=== PATIENT | female | born 1960 | race Caucasian/White ===

== ENCOUNTER → 2017-11-24 07:08 | Outpatient (CLI) | payer MEDICAID, SELFPAY ==
--- NOTE | 2017-11-24 08:30 | BRBX_PTH ---
PATIENT: JOSE GUADALUPE FISHER LOC: [facility] U#:[id number] AGE/SX: 64/F ROOM: RE11/24/[address]: Dr. Eli Burrows MD : 1960 BED: DIS: SPEC #: [id number] RECD: 11/24/17 09:12 STATUS: MARTY ALICE #: [id number] BRAXTON: 11/24/17 08:[address]: Eli Burrows DEPT: SURGICAL PATHOLOGY RECD BY: Omero Domingo ENTERED: 11/24/17 12:50 SP TYPE: BREAST BX OTHR DR: Dr. Sowmya Asif MD Tissues: Left breast, NOS Procedures: Surgery Specimen Level IV HEADER OPERATION: Left stereotactic breast biopsy PRE-OP DIAGNOSIS: Left breast microcalcifications 4 o?clock middle depth TISSUE SUBMITTED: Left breast core tissue ISCHEMIC TIME: 1 minute FIXATION TIME: 11 hours MICROSCOPIC DIAGNOSIS Left breast, stereotactic needle core biopsy: Fibrosis, benign histiocytic proliferation and clustered Banal microcalcifications. No evidence of malignancy. AM:eladio 11/25/17 MICROSCOPIC DESCRIPTION Slides are reviewed. GROSS DESCRIPTION Received is one container labeled with the patient's name and not further designated. The specimen consists of multiple elongated fragments of jett-yellow fibroadipose tissue that in aggregate measure 3 x 2.5 x 0.3 cm. The entire specimen is submitted in one cassette. / SJ:eladio 11/24/17 TC:5 CPT: 99009
--- NOTE | 2017-11-24 13:27 | PCM.OPRPT ---
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 Appropriate time out protocol was followed. She was then placed in the prone position on the stereotactic biopsy table. The patients left breast was then placed in the opening at the head of the table. A pencil maker compression mammogram was then obtained in the lateral view. The suspicious radiological lesion was then identified. Stereo pictures of the lesion were then taken for XYZ coordinates. The Mammotome biopsy stylus was then positioned where it would be entering into the patients breast. The skin at this site was then cleansed with a surgical skin preparation. The skin and subcutaneous tissues at this site were then infiltrated with 1% xylocaine. A small skin incision was made with an 11 blade scalpel. The biopsy stylus was then positioned into the patients breast at the proper coordinates of depth. Using the Mammotome vacuum-assist device, several core samples of breast tissue were obtained. A specimen mammogram was the obtained and revealed that the calcifications were within the specimen. A hemostatic marker clip was then placed into the biopsy cavity and a pencil maker film revealed that it was properly deployed. The patient was then placed in the supine position and pressure was applied to the breast until no active bleeding was noted. Steristrips were applied to reapproximate the skin. A unilateral mammogram in the CC and MLO view were then taken which revealed that the marker clip was in the same area as the previous suspicious lesion. The patient tolerated the procedure well and was discharged from the breast biopsy suite in good condition. - Complications none noted
--- NOTE | 2017-11-24 13:30 | OP.PCM_ITS ---
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 Appropriate time out protocol was followed. She was then placed in the prone position on the stereotactic biopsy table. The patient?s left breast was then placed in the opening at the head of the table. A titrator compression mammogram was then obtained in the lateral view. The suspicious radiological lesion was then identified. Stereo pictures of the lesion were then taken for XYZ coordinates. The Mammotome biopsy stylus was then positioned where it would be entering into the patient?s breast. The skin at this site was then cleansed with a surgical skin preparation. The skin and subcutaneous tissues at this site were then infiltrated with 1% xylocaine. A small skin incision was made with an 11 blade scalpel. The biopsy stylus was then positioned into the patient?s breast at the proper coordinates of depth. Using the Mammotome vacuum-assist device, several core samples of breast tissue were obtained. A specimen mammogram was the obtained and revealed that the calcifications were within the specimen. A hemostatic marker clip was then placed into the biopsy cavity and a titrator film revealed that it was properly deployed. The patient was then placed in the supine position and pressure was applied to the breast until no active bleeding was noted. Steristrips were applied to reapproximate the skin. A unilateral mammogram in the CC and MLO view were then taken which revealed that the marker clip was in the same area as the previous suspicious lesion. The patient tolerated the procedure well and was discharged from the breast biopsy suite in good condition. - Complications none noted
== END ==
PROVIDERS: Family Provider Internal Medicine; PCP Internal Medicine; Visit Provider Surgery
DX: D24.2 Benign neoplasm of left breast (principal); N60.32 Fibrosclerosis of left breast; F41.9 Anxiety disorder, unspecified; M79.7 Fibromyalgia; E11.9 Type 2 diabetes mellitus without complications; G51.0 Bell's palsy; E03.9 Hypothyroidism, unspecified; Z79.84 Long term (current) use of oral hypoglycemic drugs; Z79.899 Other long term (current) drug therapy
CPT/HCPCS: 19081; 88305; J7050

== ENCOUNTER → 2020-11-26 16:02 | Outpatient (CLI) | payer MEDICARE, SELFPAY ==
[2020-11-26 17:23] LABS: Absolute Lymphocyte Count 3.06 X10^3/uL (0.83-4.51); Absolute Neutrophil Count 4.6 X10^3/uL (2.0-7.7); Basophil# 0.04 X10^3/uL; Basophil% 0.5 % (0-1); Eosinophil# 0.01 X10^3/uL; Eosinophils% 0.1 % (0-5); Hematocrit 42.2 % (37-47); Lymphocyte # 3.06 X10^3/ul (0.83-4.51); Lymphocyte % 37.6 % (19-41); Mean Corp Hgb Conc 30.8 g/dL (32-36); Mean Corpuscular Hgb 27.6 pg (27.0-32.0); Mean Corpuscular Volume 89.6 fL (81-99); Mean Platelet Vol. 9.7 fl (6.2-12.0); Monocyte# 0.43 X10^3/uL; Monocyte% 5.3 % (0-10); NRBC Flagged by Analyzer 0 % (0-5); Neutrophil # 4.57 X10^3/uL (2.7-7.7); Neutrophil % 56.1 % (47-70); Platelet Count 235 K/mm3 (150-450); RBC Distribution Width CV 12.6 % (11.6-14.6); RBC Distribution Width SD 41.4 fl (35.1-43.9); Red Blood Count 4.71 M/mm3 (4.2-5.4); White Blood Count 8.1 K/mm3 (4.4-11.0)
[2020-11-26 18:36] LABS: ALB/GLOB Ratio 0.8 RATIO (0.9-2.4); AST(SGOT) 9 U/L (15-37); Alanine Aminotransfer ALT/SGPT 16 U/L (13-56); Albumin, Serum 3.4 g/dL (3.2-5.0); Alkaline Phosphatase 110 U/L (45-117); Anion Gap 4 (5-15); BUN 11 mg/dL (7-18); BUN/Creat Ratio 12.8 RATIO (10-20); Calcium,Total 9.2 mg/dL (8.5-10.1); Chloride 104 mmol/L (98-107); Cholesterol 244 mg/dL (200); Creatinine, Serum 0.86 mg/dL (0.55-1.02); EST Glomerular Filtration Rate 71 mL/min (>60); Est Glom Filt Rate - Afr Amer 86 mL/min (>60); Globulin 4.1 g/dL (2.2-4.2); Glucose 121 mg/dL (74-106); High Density Lipoprotein 44 mg/dL; Potassium 3.3 mmol/L (3.5-5.1); Protein, Total 7.5 g/dL (6.4-8.2); Sodium Level 139 mmol/L (136-145); Thyroid Stim Hormone (TSH) 0.76 uIU/mL (0.358-3.74); Triglycerides 303 mg/dL; Very Low Density Lipoprotein 61 mg/dL (5-40)
[2020-11-27 10:32] LABS: Hepatitis C Antibody Non-Reactive (Nonreactive)
[2020-11-29 12:38] LABS: Vitamin D,25 Hydroxy 52.5 ng/mL
== END ==
PROVIDERS: PCP Family Medicine Geriatric Medicine; Visit Provider Family Medicine Geriatric Medicine
DX: E55.9 Vitamin D deficiency, unspecified (principal); E78.5 Hyperlipidemia, unspecified; R53.83 Other fatigue; Z13.89 Encounter for screening for other disorder
CPT/HCPCS: 36415; 80053; 80061; 82306; 84443; 85025; 86803

== ENCOUNTER → 2020-12-04 12:20 | Outpatient (CLI) | payer MEDICARE, SELFPAY ==
[2017-02-14 11:10] VITALS: BMI 34.9
[2020-12-04 13:12] LABS: Anion Gap 4 (5-15); BUN 11 mg/dL (7-18); BUN/Creat Ratio 11.1 RATIO (10-20); Calcium,Total 9.3 mg/dL (8.5-10.1); Chloride 106 mmol/L (98-107); Creatinine, Serum 0.99 mg/dL (0.55-1.02); EST Glomerular Filtration Rate 61 mL/min (>60); Est Glom Filt Rate - Afr Amer 73 mL/min (>60); Glucose 163 mg/dL (74-106); Potassium 3.8 mmol/L (3.5-5.1); Sodium Level 140 mmol/L (136-145)
== END ==
PROVIDERS: PCP Family Medicine Geriatric Medicine; Referring Provider Family Medicine Geriatric Medicine; Visit Provider Family Medicine Geriatric Medicine
DX: E87.6 Hypokalemia (principal)
CPT/HCPCS: 36415; 80048

== ENCOUNTER → 2020-12-25 11:54 | Outpatient (CLI) | payer MEDICARE, SELFPAY ==
[2017-02-14 11:10] VITALS: BMI 34.9
== END ==
PROVIDERS: PCP Family Medicine Geriatric Medicine; Referring Provider Family Medicine Geriatric Medicine; Visit Provider Family Medicine Geriatric Medicine
DX: N39.0 Urinary tract infection, site not specified (principal)
CPT/HCPCS: 36415; 87077; 87086; 87088; 87186

== ENCOUNTER 2021-01-07 17:36 | Emergency (ER) | payer MEDICARE, SELFPAY ==
[2021-01-07 17:36] VITALS: BP 119/63; PULSE 83; RESP 16; TEMP 36.6; O2SAT 99; BMI 35.2
--- NOTE | 2021-01-07 18:00 | EKG12_ITS ---
Test Reason : CP Blood Pressure : / mmHG Vent. Rate : 074 BPM Atrial Rate : 074 BPM P-R Int : 150 ms QRS Dur : 088 ms QT Int : 416 ms P-R-T Axes : 050 042 016 degrees QTc Int : 461 ms Normal sinus rhythm Nonspecific T wave abnormality Abnormal ECG Confirmed by KEV MOULTON, PARKER ([id number]), sports editor FREDY BETANCOURT ([id number]) on 01/09/2021 1:56:33 PM Referred By: MELVIN Confirmed By:PARKER ANGULO MD
--- NOTE | 2021-01-07 18:00 | CT_ITS ---
STUDY: CT BRAIN WITHOUT CONTRAST REASON FOR EXAM: Female, 60 years old. Seizure RADIATION DOSAGE (If Supplied By Facility): CTDIvol = ( 44.99 ) mGy, DLP = ( 812.98 ) mGycm TECHNIQUE: Transaxial CT imaging of the brain was performed without administration of intravenous contrast material. Individualized dose optimization techniques were used for this CT. COMPARISON: 14 February 2017 FINDINGS: Brain parenchyma is without focal lesions, mass effect, acute intracranial hemorrhage, extra parenchymal fluid collections, hydrocephalus or herniation. The skull is intact. CT/Brain/Head without Contrast IMPRESSION: 1. Normal CT brain. Electronically Signed: Morro Alexandre MD at 18:58 EDT Tel , Service support ,
[2021-01-07] MEDS: LORazepam 2 MG/ML Syringe 0.5 MG IV (18:09)
[2021-01-07 18:13] LABS: Absolute Lymphocyte Count 2.88 X10^3/uL (0.83-4.51); Absolute Neutrophil Count 8.6 X10^3/uL (2.0-7.7); Basophil# 0.04 X10^3/uL; Basophil% 0.3 % (0-1); Eosinophil# 0.01 X10^3/uL; Eosinophils% 0.1 % (0-5); Hematocrit 42.7 % (37-47); Hemoglobin 13.2 g/dL (12.0-15.0); Lymphocyte # 2.88 X10^3/ul (0.83-4.51); Lymphocyte % 23.7 % (19-41); Mean Corp Hgb Conc 30.9 g/dL (32-36); Mean Corpuscular Hgb 27.8 pg (27.0-32.0); Mean Corpuscular Volume 89.9 fL (81-99); Mean Platelet Vol. 9.4 fl (6.2-12.0); Monocyte# 0.64 X10^3/uL; Monocyte% 5.3 % (0-10); NRBC Flagged by Analyzer 0 % (0-5); Neutrophil # 8.55 X10^3/uL (2.7-7.7); Neutrophil % 70.3 % (47-70); Platelet Count 241 K/mm3 (150-450); RBC Distribution Width SD 42.8 fl (35.1-43.9); Red Blood Count 4.75 M/mm3 (4.2-5.4); White Blood Count 12.2 K/mm3 (4.4-11.0)
[2021-01-07 18:22] LABS: Anion Gap 5 (5-15); BUN 11 mg/dL (7-18); BUN/Creat Ratio 11.7 RATIO (10-20); Calcium,Total 8.8 mg/dL (8.5-10.1); Chloride 108 mmol/L (98-107); Creatinine, Serum 0.94 mg/dL (0.55-1.02); EST Glomerular Filtration Rate 64 mL/min (>60); Est Glom Filt Rate - Afr Amer 78 mL/min (>60); Estimated Creatinine Clearance 61.89 ml/min; Glucose 153 mg/dL (74-106); Potassium 3.6 mmol/L (3.5-5.1); Sodium Level 140 mmol/L (136-145)
--- NOTE | 2021-01-07 19:23 | EX.ED.DYSGE1 ---
HPI History of Present Illness Chief Complaint: Seizure Informant: patient and spouse/S.O. Onset/Context/Timing Onset: Today Narrative Narrative: Patient presents after reported seizure at home. Patient reported he was sitting on the commode straining to have a bowel movement. She states she felt very hot and sweaty. She asked her to get a cool wash rag to put on her neck. He states next thing he knew she was slumped over on the commode. It took her several minutes to arouse. No tonic-clonic activity was noted. Patient reportedly has history of seizures. The first episode she had was similar where she became unresponsive on the commode and had left arm shaking. She is had a couple episodes where she will have motor changes in the left arm with seizure activity. She is currently on Topamax. does state that she was admitted to [facility] for almost a week last year for continuous EEG monitoring. No seizure activity could be elicited at that time. Patient states she is in the process of switching neurologists and has an appointment to see someone in [place] on March 13. At this time patient states she just feels tired and fatigued. Past medical history: Seizures Chronic left-sided pain Diabetes Hypothyroidism High cholesterol PFSH PFSH Home Medications cholecalciferol (vitamin D3) [Vitamin D] 1,000 unit PO BID 03/13/16 [History Last Taken Unknown] cyclobenzaprine 5 mg PO QHS PRN 03/13/16 [History Last Taken Unknown] levothyroxine 125 mcg PO DAILY 03/13/16 [History Last Taken Unknown] metformin 1,000 mg PO DAILY 03/13/16 [History Last Taken Unknown] kg-ij-IL-vit J-cclsz-hrzs-zeax [Ocuvite Eye + Multi Tablet] 1 ea PO DAILY 03/13/16 [History Last Taken Unknown] dihej-2m-oss-epa-fish oil 1 ea PO DAILY 03/13/16 [History Last Taken Unknown] duloxetine 1 capsule PO DAILY 10/24/16 [History Last Taken Unknown] glimepiride 1 mg PO DAILY 10/24/16 [History Last Taken Unknown] pravastatin 10 mg PO QHS 10/24/16 [History Last Taken Unknown] acetaminophen 500 mg PO Q6H PRN PRN 02/14/17 [History Last Taken Unknown] hydrocodone-acetaminophen 1 - 2 tab PO Q4H PRN PRN #12 tablet 02/14/17 [Rx Last Taken Unknown] melatonin 10 mg PO QHS PRN 02/14/17 [History Last Taken Unknown] potassium 99 mg PO BID 02/14/17 [History Last Taken Unknown] topiramate 50 mg PO DAILY 02/14/17 [History Last Taken Unknown] topiramate 100 mg PO QHS 02/14/17 [History Last Taken Unknown] Allergy/AdvReac Type Severity Reaction Status Date / Time iodine Allergy Angioedema Verified 01/07/21 17:40 acetaminophen AdvReac Unknown Verified 10/24/16 13:48 [From Darvocet-N] azathioprine AdvReac Pain in Verified 10/24/16 14:00 joints goldenseal [zuñiga seal] AdvReac Unknown Verified 10/24/16 13:48 meperidine [From Demerol] AdvReac Nausea Verified 10/24/16 13:48 propoxyphene AdvReac Unknown Verified 10/24/16 13:48 [From Darvocet-N] tea tree AdvReac Unknown Verified 10/24/16 13:48 Social History Smoking Status: Never smoker ROS ROS ED Constitutional Constitutional ED: Denies chills or fever(s) Eyes Eyes: Denies change in vision ENT ENT ED: Denies sore throat Cardiovascular Cardiovascular: Denies chest pain Respiratory/Chest Respiratory/Chest: Denies cough or dyspnea Gastrointestinal Gastrointestinal: Denies abdominal pain, diarrhea, nausea or vomiting Genitourinary Genitourinary ED: Denies dysuria Musculoskeletal Musculoskeletal: Denies back pain Integumentary Denies rash Neurologic Neurologic: Denies headache(s) or weakness Psychiatric Psychiatric: Denies anxiety or depression Endocrine Endocrinology: Denies polydipsia or polyuria Allergic/Immunologic Allergic/Immunologic ED: Denies urticaria EXAM Physical Exam Const Vital Signs: 01/07/21 17:36 01/07/21 19:41 Temperature 97.8 F Temperature Source Oral Pulse Rate 83 78 Respiratory Rate 16 13 Blood Pressure 119/63 119/68 Blood Pressure Mean 81 Pulse Ox 99 97 Oxygen Delivery Method Room Air Positive well nourished and well developed General Appearance ED: well developed HEENT Reports normocephalic and head/scalp atraumatic HEENT Narrative: No tongue bite injury. Eyes PERRL and EOMs intact bilaterally Neck supple Chest Wall inspection of chest normal and palpation of chest normal Resp normal respiratory effort and clear to auscultation bilaterally Cardio regular rate and regular rhythm GI normal to inspection, nondistended, normoactive bowel sounds Palpation: soft Extremity normal to inspection Neuro oriented x3 and no sensory deficits noted Sensorium / Orientation: alert Motor Exam: strength 5/5 throughout Psych mental status grossly normal Skin no rashes or lesions noted MDM MDM MDM Narrative Medical decision making narrative: EKG, labs, head CT obtained. Patient was given 0.5 mg of IV Ativan. Lab Data Attestation: I reviewed the patient's lab results. Labs: Laboratory Results - last 24 hr 01/07/21 01/07/21 17:45 17:45 WBC 12.2 H RBC 4.75 Hgb 13.2 Hct 42.7 MCV 89.9 MCH 27.8 MCHC 30.9 L RDW Std Deviation 42.8 RDW Coeff of Andrew 13.0 Plt Count 241 MPV 9.4 Immature Gran % (Auto) 0.300 Neut % (Auto) 70.3 H Lymph % (Auto) 23.7 Mccreary % (Auto) 5.3 Eos % (Auto) 0.1 Baso % (Auto) 0.3 Absolute Neuts (auto) 8.6 H Absolute Lymphs (auto) 2.88 Nucleated RBC % 0 Sodium 140 Potassium 3.6 Chloride 108 H Carbon Dioxide 27.0 Anion Gap 5 BUN 11 Creatinine 0.94 Estim Creat Clear Calc 61.89 Est GFR (MDRD) Af Amer 78 Est GFR (MDRD) Non-Af 64 BUN/Creatinine Ratio 11.7 Glucose 153 H Calcium 8.8 Radiography Diagnostic Testing: Radiology Impression Brain CT 01/07/21 18:00 IMPRESSION: 1. Normal CT brain. Electronically Signed: Morro Alexandre MD at 18:58 EDT Tel , Service support , EKG Initial EKG: Attestation: I personally reviewed and interpreted this EKG as follows: Interpretation: Sinus Rhythm (Sinus at 74. Nonspecific T wave flattening.) Treatment and Re-Evaluation Comments:: On repeat exam patient is resting comfortably. Test results discussed with patient and at bedside. I did discuss with them the possibility that this was a vasovagal syncopal event as opposed to seizure. Unfortunately there is no testing available that will allow me to differentiate the 2. Regardless, our treatment will not change at this point. She will continue her Topamax and follow-up with neurology. Discharge Plan Triage Chief Complaint: Seizure ED Provider: Brianne Lewis Dx/Rx/DC Orders Clinical Impression: Syncope, vasovagal, Seizure Instructions: ED Seizure, Recurrent (Adult) Prescriptions: No Action cyclobenzaprine 10 MG tablet 5 mg PO QHS PRN (Reason: Pain) RF: 0 levothyroxine 125 MCG tablet 125 mcg PO DAILY RF: 0 metformin 1,000 MG [id number] 1,000 mg PO DAILY RF: 0 cholecalciferol (vitamin D3) [Vitamin D3] 1,000 UNIT tablet 1,000 unit PO BID RF: 0 bujam-4l-vau-epa-fish oil 1 EACH capsule 1 ea PO DAILY RF: 0 cd-fq-VI-vit B-pxpzc-kdpx-zeax [Ocuvite Eye Plus Multi] 1 EACH tablet 1 ea PO DAILY RF: 0 glimepiride 1 MG tablet 1 mg PO DAILY RF: 0 pravastatin 10 MG tablet 10 mg PO QHS RF: 0 duloxetine 60 MG Capsule.Dr 1 capsule PO DAILY RF: 0 acetaminophen 500 MG tablet 500 mg PO Q6H PRN PRN (Reason: Pain) RF: 0 potassium 99 MG tablet 99 mg PO BID RF: 0 topiramate 100 MG tablet 100 mg PO QHS RF: 0 topiramate 50 MG tablet 50 mg PO DAILY RF: 0 melatonin 10 MG tablet 10 mg PO QHS PRN (Reason: Insomnia) RF: 0 hydrocodone-acetaminophen 1 TABLET tablet 1 - 2 tab PO Q4H PRN PRN (Reason: Pain) Qty: 12 RF: 0 Primary Care Provider: Juwan Hernandez Chi Referrals: Juwan Hernandez Chi, MD [Primary Care Provider] - 1-2 Weeks Activity Restrictions/Additional Instructions: Follow-up with your neurologist as scheduled or before if available. Disposition Disposition: Home, Self Care Discharge Date/Time: 01/07/21 19:53
[2021-01-07 19:41] VITALS: BP 119/68; PULSE 78; RESP 13; O2SAT 97
== END 2021-01-07 19:53 | disposition home or self-care (01) ==
PROVIDERS: Emergency Provider Emergency Medicine; PCP Family Medicine Geriatric Medicine
DX: R55 Syncope and collapse (principal); R56.9 Unspecified convulsions
CPT/HCPCS: 70450; 80048; 85025; 93005; 96374; 99285; A4216

== ENCOUNTER → 2021-01-09 17:34 | Outpatient (CLI) | payer MEDICARE, SELFPAY ==
[2021-01-09 10:22] VITALS: BMI 35.2
== END ==
PROVIDERS: PCP Family Medicine Geriatric Medicine; Visit Provider Family Medicine Geriatric Medicine
DX: N39.0 Urinary tract infection, site not specified (principal)
CPT/HCPCS: 87086; 87088

== ENCOUNTER → 2021-01-14 10:29 | Outpatient (CLI) | payer MEDICARE, SELFPAY ==
[2021-01-09 10:22] VITALS: BMI 35.2
--- NOTE | 2021-01-14 10:31 | CT_ITS ---
STUDY: CT ABDOMEN AND PELVIS WITHOUT CONTRAST REASON FOR EXAM: Female, 60 years old. RIGHT FLANK PAIN. Right pelvic pain. RADIATION DOSAGE (If Supplied By Facility): CTDIvol = ( 19.33 ) mGy, DLP = ( 1053.54 ) mGycm TECHNIQUE: Transaxial images were obtained from the dome of the diaphragm to the symphysis pubis without oral contrast, and without intravenous contrast. Sagittal and coronal images were reconstructed. Individualized dose optimization techniques were used for this CT. COMPARISON: Comparison is made with prior study 02/14/2017. FINDINGS: The visualized lung bases are unremarkable. The visualized portions of the heart are within normal limits. There is mild hepatomegaly with diffuse hepatic enlargement. There are multiple gallstones. Normal spleen. Normal pancreas. Normal bilateral adrenal glands. Normal right kidney. Normal left kidney. Normal visualized stomach. Normal small intestine. Normal colon. There is non-visualization of the appendix. There is diffuse atherosclerotic calcification of the abdominal aorta, without a demonstrated aneurysm. Normal inferior vena cava. There is borderline retroperitoneal lymphadenopathy with enlarged nodes no greater than 10mm in the short axis diameter. Normal urinary bladder. There is absence of the uterus consistent with a prior hysterectomy. Normal abdominal wall. There are diffuse degenerative changes of the visualized lumbar spine. CT/Abdomen/Pelvis without Cont IMPRESSION: Multiple gallstones. Electronically Signed: Jaden Steele MD at 11:38 EDT , Service support ,
== END ==
PROVIDERS: PCP Family Medicine Geriatric Medicine; Referring Provider Family Medicine Geriatric Medicine; Visit Provider Family Medicine Geriatric Medicine
DX: R10.30 Lower abdominal pain, unspecified (principal); N39.0 Urinary tract infection, site not specified
CPT/HCPCS: 74176; 87086

== ENCOUNTER → 2021-01-16 08:16 | Outpatient (CLI) | payer MEDICARE, SELFPAY ==
[2021-01-09 10:22] VITALS: BMI 35.2
--- NOTE | 2021-01-16 08:18 | US_ITS ---
STUDY: ABDOMINAL ULTRASOUND - RIGHT UPPER QUADRANT REASON FOR VISIT: Female, 60 years old GALLSTONES / ABD GALLSTONES SEEN ON CT - PT IS S/P WALDO 1998 PAIN TECHNIQUE: Ultrasound evaluation of the right upper quadrant was performed with real-time and static medrano-scale imaging. TECHNICAL QUALITY: Adequate. COMPARISON: None. FINDINGS: Liver: The liver measures 16.3 cm. There is increased echogenicity consistent with fatty infiltration. The bile ducts are within normal limits. There is hepatic color flow. The direction of portal flow is hepatopetal. There is no demonstrated mass lesion. Gallbladder: The patient is status post cholecystectomy. There is 1.2 cm x 1 cm x 0.9 cm fluid collection or gallbladder remnant in the region of the gallbladder fossa. Common Bile Duct (C.B.D.): The common bile duct measures 6 mm. Pancreas: Normal size of the head, body and tail of the pancreas. There is normal echogenicity of the pancreas. There is no demonstrated pancreatic mass or cyst. Right Kidney: Normal size of the right kidney. The right kidney measures 11.9 cm x 4.8cm x 4.4 cm. Normal renal cortex. The right cortex measures 1.7 cm. There is a 1.5 cm x 1.3 cm x 1.5 cm cyst in the upper pole of the right kidney. There is no right hydronephrosis. US/Abdomen Limited IMPRESSION: Fatty infiltration of the liver. Status post cholecystectomy. Right renal cyst. Electronically Signed: Jaden Steele MD at 14:03 EDT , Service support ,
--- NOTE | 2021-01-16 08:19 | US_ITS ---
STUDY: SUPERFICIAL ULTRASOUND - RIGHT HIP. REASON FOR EXAM: Female, 60 years old. LIPOMA OF RT ANT HIP TECHNIQUE: A superficial ultrasound was performed with real-time and static medrano-scale imaging. COMPARISON: None. FINDINGS: The palpable and mildly corresponds to a 5.4 mm x 4.2 mm well-defined echogenic nodule. This most likely represents a lipoma. US/Ext Non Vasc Limited/Soft Tiss IMPRESSION: The palpable abnormality corresponds to a 5 mm x 4 mm x 4 mm lipoma. Electronically Signed: Jaden Steele MD at 13:30 EDT , Service support ,
== END ==
PROVIDERS: PCP Family Medicine Geriatric Medicine; Referring Provider Family Medicine Geriatric Medicine; Visit Provider Family Medicine Geriatric Medicine
DX: D17.9 Benign lipomatous neoplasm, unspecified (principal)
CPT/HCPCS: 76705; 76882

== ENCOUNTER → 2021-01-29 07:49 | Outpatient (CLI) | payer MEDICARE, SELFPAY ==
[2021-01-09 10:22] VITALS: BMI 35.2
--- NOTE | 2021-01-29 07:51 | US_ITS ---
STUDY: ABDOMINAL ULTRASOUND - ELASTOGRAPHY REASON FOR VISIT: Female, 60 years old. Fatty infiltration of the liver. TECHNIQUE: Liver stiffness measurements were obtained on a [employer] RS 85 ultrasound machine using a CA 1-7 probe following the SRU guidelines. 3 measurements were obtained using a 2-D-SWE method. The IQR/M was 22% suggesting a quality data set. TECHNICAL QUALITY: Adequate. COMPARISON: Comparison is made with prior sonogram dated 01/16/2021. FINDINGS: Liver: Fatty infiltration of the liver. Median liver stiffness measured 7.7 kPa. US/Elastography Parenchyma/Organ IMPRESSION: Liver stiffness measures 7.7 kPa compatible with F2 Metavir score. Electronically Signed: Jaden Steele MD at 9:28 EDT , Service support ,
== END ==
PROVIDERS: PCP Family Medicine Geriatric Medicine; Referring Provider Family Medicine Geriatric Medicine; Visit Provider Family Medicine Geriatric Medicine
DX: K76.0 Fatty (change of) liver, not elsewhere classified (principal)
CPT/HCPCS: 76981

== ENCOUNTER → 2021-02-26 14:40 | Outpatient (CLI) | payer MEDICARE, SELFPAY ==
[2021-02-26 17:25] LABS: Absolute Lymphocyte Count 3.13 X10^3/uL (0.83-4.51); Absolute Neutrophil Count 4.4 X10^3/uL (2.0-7.7); Basophil# 0.04 X10^3/uL; Basophil% 0.5 % (0-1); Eosinophil# 0.01 X10^3/uL; Eosinophils% 0.1 % (0-5); Hematocrit 42.8 % (37-47); Hemoglobin 13.2 g/dL (12.0-15.0); Lymphocyte # 3.13 X10^3/ul (0.83-4.51); Lymphocyte % 38.7 % (19-41); Mean Corp Hgb Conc 30.8 g/dL (32-36); Mean Corpuscular Hgb 27.6 pg (27.0-32.0); Mean Corpuscular Volume 89.5 fL (81-99); Mean Platelet Vol. 10.1 fl (6.2-12.0); Monocyte# 0.48 X10^3/uL; Monocyte% 5.9 % (0-10); NRBC Flagged by Analyzer 0 % (0-5); Neutrophil % 54.4 % (47-70); Platelet Count 233 K/mm3 (150-450); RBC Distribution Width CV 12.8 % (11.6-14.6); RBC Distribution Width SD 42.2 fl (35.1-43.9); Red Blood Count 4.78 M/mm3 (4.2-5.4); White Blood Count 8.1 K/mm3 (4.4-11.0)
[2021-02-26 17:54] LABS: ALB/GLOB Ratio 0.9 RATIO (0.9-2.4); AST(SGOT) 11 U/L (15-37); Alanine Aminotransfer ALT/SGPT 21 U/L (13-56); Albumin, Serum 3.7 g/dL (3.2-5.0); Alkaline Phosphatase 102 U/L (45-117); Anion Gap 4 (5-15); BUN 14 mg/dL (7-18); BUN/Creat Ratio 14.4 RATIO (10-20); Calcium,Total 8.9 mg/dL (8.5-10.1); Chloride 105 mmol/L (98-107); Cholesterol 254 mg/dL (200); Creatinine, Serum 0.97 mg/dL (0.55-1.02); EST Glomerular Filtration Rate 62 mL/min (>60); Est Glom Filt Rate - Afr Amer 75 mL/min (>60); Globulin 3.9 g/dL (2.2-4.2); Glucose 140 mg/dL (74-106); High Density Lipoprotein 43 mg/dL; Potassium 4.2 mmol/L (3.5-5.1); Protein, Total 7.6 g/dL (6.4-8.2); Sodium Level 138 mmol/L (136-145); Thyroid Stim Hormone (TSH) 1.02 uIU/mL (0.358-3.74); Triglycerides 206 mg/dL; Very Low Density Lipoprotein 41 mg/dL (5-40)
== END ==
PROVIDERS: PCP Family Medicine Geriatric Medicine; Visit Provider Family Medicine Geriatric Medicine
DX: E11.65 Type 2 diabetes mellitus with hyperglycemia (principal); E55.9 Vitamin D deficiency, unspecified; E78.5 Hyperlipidemia, unspecified; R53.83 Other fatigue
CPT/HCPCS: 36415; 80053; 80061; 82306; 84443; 85025

== ENCOUNTER → 2021-06-04 15:06 | Outpatient (CLI) | payer MEDICARE, SELFPAY ==
--- NOTE | 2021-06-04 15:09 | RAD_ITS ---
STUDY: X-RAY CHEST REASON FOR EXAM: Female, 60 years old. COUGH TECHNIQUE: PA and lateral views of the chest. COMPARISON: None. FINDINGS: Surgical clips overlie the left chest/breast. Amorphous opacity in the lingula. There is no demonstrated pleural abnormality. Normal size heart. Normal mediastinum and donald. Normal visualized pulmonary arteries. Normal visualized aortic arch and descending thoracic aorta. Normal visualized thoracic spine. Normal visualized ribs, clavicles, and shoulders. There is no demonstrated abnormality of the visualized soft tissue structures of the upper abdomen. RAD/Chest PA and Lateral IMPRESSION: Lingular infiltrate suggesting pneumonia. Electronically Signed: David Jacobson MD (Brooks) at 15:56 EST , Service support ,
== END ==
PROVIDERS: PCP Family Medicine Geriatric Medicine; Referring Provider Family Medicine Geriatric Medicine; Visit Provider Family Medicine Geriatric Medicine
DX: R05.9 Cough, unspecified (principal)
CPT/HCPCS: 71046

== ENCOUNTER → 2021-06-04 15:19 | Outpatient (CLI) | payer MEDICARE, SELFPAY ==
[2021-06-04 16:19] LABS: Absolute Neutrophil Count 2.5 X10^3/uL (2.0-7.7); Basophil# 0.06 X10^3/uL; Eosinophil# 0.11 X10^3/uL; Eosinophils% 1.9 % (0-5); Hematocrit 40.2 % (37-47); Hemoglobin 12.7 g/dL (12.0-15.0); Lymphocyte % 44.4 % (19-41); Mean Corp Hgb Conc 31.6 g/dL (32-36); Mean Corpuscular Volume 88.5 fL (81-99); Mean Platelet Vol. 9.5 fl (6.2-12.0); Monocyte# 0.61 X10^3/uL; Monocyte% 10.4 % (0-10); NRBC Flagged by Analyzer 0 % (0-5); Neutrophil # 2.45 X10^3/uL (2.7-7.7); Neutrophil % 41.8 % (47-70); Platelet Count 164 K/mm3 (150-450); RBC Distribution Width CV 13.7 % (11.6-14.6); RBC Distribution Width SD 44.1 fl (35.1-43.9); Red Blood Count 4.54 M/mm3 (4.2-5.4); White Blood Count 5.9 K/mm3 (4.4-11.0)
[2021-06-04 17:23] LABS: AST(SGOT) 14 U/L (15-37); Alanine Aminotransfer ALT/SGPT 23 U/L (13-56); Albumin, Serum 3.9 g/dL (3.2-5.0); Alkaline Phosphatase 107 U/L (45-117); Anion Gap 7 (5-15); BUN 15 mg/dL (7-18); Calcium,Total 9.2 mg/dL (8.5-10.1); Chloride 103 mmol/L (98-107); Cholesterol 248 mg/dL (200); Creatinine, Serum 0.88 mg/dL (0.55-1.02); EST Glomerular Filtration Rate 69 mL/min (>60); Est Glom Filt Rate - Afr Amer 84 mL/min (>60); Globulin 4.1 g/dL (2.2-4.2); Glucose 102 mg/dL (74-106); High Density Lipoprotein 39 mg/dL; LDH 244 U/L (84-246); Magnesium 2.2 mg/dL (1.6-2.6); Phosphorus 3.6 mg/dL (2.5-4.9); Potassium 3.8 mmol/L (3.5-5.1); Sodium Level 140 mmol/L (136-145); Thyroid Stim Hormone (TSH) 1.95 uIU/mL (0.358-3.74); Triglycerides 307 mg/dL; Uric Acid 6.8 mg/dL (2.6-6.0); Very Low Density Lipoprotein 61 mg/dL (5-40)
[2021-06-05 09:06] LABS: Hepatitis B Surface Antigen Non-Reactive (Nonreactive); Vitamin D,25 Hydroxy 73.2 ng/mL
[2021-06-06 13:31] LABS: Hepatitis B Core Ab Total Negative (Negative)
== END ==
PROVIDERS: PCP Family Medicine Geriatric Medicine; Visit Provider Family Medicine Geriatric Medicine
DX: E11.65 Type 2 diabetes mellitus with hyperglycemia (principal); G35 Multiple sclerosis; E55.9 Vitamin D deficiency, unspecified; E78.5 Hyperlipidemia, unspecified; R53.83 Other fatigue; R05.9 Cough, unspecified
CPT/HCPCS: 36415; 71046; 80053; 80061; 82306; 83615; 83735; 84100; 84443; 84550; 85025; 86704; 87340

== ENCOUNTER 2021-09-02 12:54 | Outpatient (CLI) | payer MEDICARE, SELFPAY ==
[2021-09-02 17:21] LABS: Absolute Lymphocyte Count 1.67 X10^3/uL (0.83-4.51); Absolute Neutrophil Count 5.1 X10^3/uL (2.0-7.7); Basophil# 0.04 X10^3/uL; Basophil% 0.6 % (0-1); Eosinophil# 0.01 X10^3/uL; Eosinophils% 0.1 % (0-5); Hematocrit 42.4 % (37-47); Hemoglobin 13.8 g/dL (12.0-15.0); Lymphocyte # 1.67 X10^3/ul (0.83-4.51); Mean Corp Hgb Conc 32.5 g/dL (32-36); Mean Platelet Vol. 9.8 fl (6.2-12.0); Monocyte# 0.47 X10^3/uL; Monocyte% 6.5 % (0-10); NRBC Flagged by Analyzer 0 % (0-5); Neutrophil # 5.05 X10^3/uL (2.7-7.7); Neutrophil % 69.4 % (47-70); Platelet Count 239 K/mm3 (150-450); RBC Distribution Width CV 13.2 % (11.6-14.6); RBC Distribution Width SD 40.3 fl (35.1-43.9); Red Blood Count 4.93 M/mm3 (4.2-5.4); White Blood Count 7.3 K/mm3 (4.4-11.0)
[2021-09-02 17:57] LABS: ALB/GLOB Ratio 0.9 RATIO (0.9-2.4); AST(SGOT) 12 U/L (15-37); Alanine Aminotransfer ALT/SGPT 19 U/L (13-56); Albumin, Serum 3.5 g/dL (3.2-5.0); Alkaline Phosphatase 90 U/L (45-117); Anion Gap 4 (5-15); BUN 13 mg/dL (7-18); Calcium,Total 9.4 mg/dL (8.5-10.1); Chloride 108 mmol/L (98-107); Cholesterol 239 mg/dL (200); Creatinine, Serum 0.82 mg/dL (0.55-1.02); EST Glomerular Filtration Rate 76 mL/min (>60); Est Glom Filt Rate - Afr Amer 92 mL/min (>60); Globulin 3.7 g/dL (2.2-4.2); Glucose 123 mg/dL (74-106); High Density Lipoprotein 44 mg/dL; Potassium 3.8 mmol/L (3.5-5.1); Protein, Total 7.2 g/dL (6.4-8.2); Sodium Level 141 mmol/L (136-145); Thyroid Stim Hormone (TSH) 0.08 uIU/mL (0.358-3.74); Triglycerides 262 mg/dL; Very Low Density Lipoprotein 52 mg/dL (5-40)
[2021-09-02 18:16] LABS: Vitamin D,25 Hydroxy 57.1 ng/mL
== END 2021-09-02 23:59 | disposition home or self-care (01) ==
LOC: POLAB3 12:55
PROVIDERS: PCP Family Medicine Geriatric Medicine; Visit Provider Family Medicine Geriatric Medicine
DX: E55.9 Vitamin D deficiency, unspecified (principal); E11.65 Type 2 diabetes mellitus with hyperglycemia; E78.5 Hyperlipidemia, unspecified; R53.83 Other fatigue
CPT/HCPCS: 36415; 80053; 80061; 82306; 84443; 85025

== ENCOUNTER 2021-10-17 14:22 | Outpatient (CLI) | payer MEDICARE, SELFPAY ==
[2021-10-17 15:23] LABS: Thyroid Stim Hormone (TSH) 0.21 uIU/mL (0.358-3.74)
== END 2021-10-17 23:59 | disposition home or self-care (01) ==
LOC: LAB 14:22
PROVIDERS: PCP Family Medicine Geriatric Medicine; Visit Provider Family Medicine Geriatric Medicine
DX: E03.9 Hypothyroidism, unspecified (principal)
CPT/HCPCS: 36415; 84443

== ENCOUNTER → 2021-11-27 | Outpatient (CLI) | payer MEDICARE, SELFPAY ==
[2021-11-27 17:19] LABS: Absolute Lymphocyte Count 2.14 X10^3/uL (0.83-4.51); Absolute Neutrophil Count 5.7 X10^3/uL (2.0-7.7); Basophil# 0.04 X10^3/uL; Basophil% 0.5 % (0-1); Hematocrit 43.5 % (37-47); Hemoglobin 13.6 g/dL (12.0-15.0); Lymphocyte # 2.14 X10^3/ul (0.83-4.51); Lymphocyte % 25.4 % (19-41); Mean Corp Hgb Conc 31.3 g/dL (32-36); Mean Corpuscular Hgb 28.2 pg (27.0-32.0); Mean Corpuscular Volume 90.2 fL (81-99); Monocyte# 0.57 X10^3/uL; Monocyte% 6.8 % (0-10); NRBC Flagged by Analyzer 0 % (0-5); Neutrophil # 5.65 X10^3/uL (2.7-7.7); Neutrophil % 66.9 % (47-70); Platelet Count 240 K/mm3 (150-450); RBC Distribution Width CV 13.2 % (11.6-14.6); RBC Distribution Width SD 43.4 fl (35.1-43.9); Red Blood Count 4.82 M/mm3 (4.2-5.4); White Blood Count 8.4 K/mm3 (4.4-11.0)
[2021-11-27 17:31] LABS: Vitamin D,25 Hydroxy 95.6 ng/mL
[2021-11-27 17:36] LABS: AST(SGOT) 15 U/L (15-37); Alanine Aminotransfer ALT/SGPT 20 U/L (13-56); Albumin, Serum 3.7 g/dL (3.2-5.0); Alkaline Phosphatase 83 U/L (45-117); Anion Gap 6 (5-15); BUN 16 mg/dL (7-18); BUN/Creat Ratio 18.4 RATIO (10-20); Calcium,Total 8.9 mg/dL (8.5-10.1); Chloride 105 mmol/L (98-107); Cholesterol 266 mg/dL (200); Creatinine, Serum 0.87 mg/dL (0.55-1.02); EST Glomerular Filtration Rate 70 mL/min (>60); Est Glom Filt Rate - Afr Amer 85 mL/min (>60); Globulin 3.8 g/dL (2.2-4.2); Glucose 105 mg/dL (74-106); High Density Lipoprotein 46 mg/dL; Potassium 4.1 mmol/L (3.5-5.1); Protein, Total 7.5 g/dL (6.4-8.2); Sodium Level 138 mmol/L (136-145); Thyroid Stim Hormone (TSH) 0.59 uIU/mL (0.358-3.74); Triglycerides 199 mg/dL; Very Low Density Lipoprotein 40 mg/dL (5-40)
== END | disposition home or self-care (01) ==
LOC: POLAB3 14:50
PROVIDERS: PCP Family Medicine Geriatric Medicine; Visit Provider Family Medicine Geriatric Medicine
DX: E55.9 Vitamin D deficiency, unspecified (principal); E11.65 Type 2 diabetes mellitus with hyperglycemia; E03.9 Hypothyroidism, unspecified; R53.83 Other fatigue
CPT/HCPCS: 36415; 80053; 80061; 82306; 84443; 85025

== ENCOUNTER → 2022-02-03 | Outpatient (CLI) | payer MEDICARE, SELFPAY ==
--- NOTE | 2022-02-03 15:18 | BI_ITS ---
MAMMOGRAPHY - BILATERAL SCREENING 3-D TOMOSYNTHESIS REASON FOR EXAM: Female, 61 years old. Annual screening mammogram. PERTINENT HISTORY: History of left excisional biopsy in 2009. Intermittent yellowish/greenish nipple discharge on the left. Paternal grandmother in seventh decade with breast cancer and maternal aunt, age not identified, with breast cancer. TECHNIQUE: 2-D mammograms and 3-D Tomosynthesis of the breast (s) were performed. CAD was performed. COMPARISON: 05/15/2020. FINDINGS: The breast composition is almost entirely fat. Stable tissue clip markers and benign calcifications in the left breast. Stable lymph nodes on the right. No dense spiculated masses or suspicious microcalcifications are identified. No architectural distortion is identified. There is no skin thickening or retraction. BI/SCRN MAMM (CAD)W/PEG BILAT IMPRESSION: No interval change and no mammographic signs of malignancy. Routine yearly mammograms recommended. ASSESSMENT CATEGORY: BIRADS Category 2: Benign. A letter regarding these results will be sent to the patient by the facility within 30 days. FOLLOW UP RECOMMENDATION: Yearly follow up mammogram recommended. (A) Approximately 10% of breast cancers are not detected by mammography. A normal mammogram should not delay biopsy of a clinically suspicious abnormality. Electronically Signed: Wade Multani MD at 10:09 EDT ,
== END | disposition home or self-care (01) ==
LOC: OPBI 15:17
PROVIDERS: PCP Family Medicine Geriatric Medicine; Referring Provider Family Medicine Geriatric Medicine; Visit Provider Family Medicine Geriatric Medicine
DX: Z12.31 Encounter for screening mammogram for malignant neoplasm of breast (principal)
CPT/HCPCS: 77063; 77067

== ENCOUNTER → 2022-02-18 | Outpatient (CLI) | payer MEDICARE, SELFPAY | END | disposition home or self-care (01) | LOC: LAB 15:15 | PROVIDERS: PCP Family Medicine Geriatric Medicine; Referring Provider Family Medicine Geriatric Medicine; Visit Provider Family Medicine Geriatric Medicine | DX: N39.0 Urinary tract infection, site not specified (principal) | CPT/HCPCS: 87086; 87088; 87186 ==

== ENCOUNTER 2022-02-23 12:06 | Emergency (ER) | payer MEDICARE, SELFPAY ==
[2022-02-23 12:09] VITALS: BP 106/63; PULSE 90; RESP 20; TEMP 36.4; O2SAT 97; BMI 30.2
--- NOTE | 2022-02-23 12:25 | EKG12_ITS ---
Test Reason : Blood Pressure : / mmHG Vent. Rate : 074 BPM Atrial Rate : 074 BPM P-R Int : 144 ms QRS Dur : 088 ms QT Int : 406 ms P-R-T Axes : 069 072 040 degrees QTc Int : 450 ms Normal sinus rhythm Normal ECG Confirmed by KVE MOULTON, PARKER ([id number]), purchase request editor BOOGIE SANTIAGO ([id number]) on 02/26/2022 8:52:54 AM Referred By: Confirmed By:PARKER ANGULO MD
--- NOTE | 2022-02-23 12:27 | EDS_ITS ---
HPI History of Present Illness Chief Complaint: Nausea/Vomiting/Diarrhea Informant: patient Onset/Context/Timing Onset: Days (4 days) Current Severity: Moderate Maximum Severity: Moderate Narrative Narrative: Patient present secondary to nausea, vomiting, and diarrhea associated with COVID. She was seen by her PCP on Thursday the and given her fourth COVID booster shot. Urine culture at that time revealed a UTI and she was given a shot of Rocephin in the office. She is currently on nitrofurantoin at home. Patient states she started feeling poorly on Thursday and then tested positive for COVID. Since that time she has had nausea, vomiting, and diarrhea and unable to keep anything down including her antibiotic. She states that she tends to have low blood pressure anyway. When she vomits she will frequently pass out as her heart rate and blood pressure drop. [facility] Medical History Abdominal pain, RLQ Acid reflux Constipation Diabetes mellitus Dysphagia Fatigue Hemorrhoids Hx of angiography Nausea Numbness and tingling Seizure Sleep apnea SOB (shortness of breath) on exertion Syncope, vasovagal Home Medications cholecalciferol (vitamin D3) 25 mcg (1,000 unit) tablet (Vitamin D3) 1,000 unit PO BID 03/13/16 [History Last Taken Unknown] cyclobenzaprine 10 mg tablet 5 mg PO QHS PRN Pain 03/13/16 [History Last Taken Unknown] levothyroxine 125 mcg tablet 125 mcg PO DAILY 03/13/16 [History Last Taken Unknown] metformin 1,000 mg 24 hr tablet,extended release 1,000 mg PO DAILY 03/13/16 [History Last Taken Unknown] nrgkavsz-tqc-JM 200 mcg-vit K 15 mcg-lycope 150 uke-quiakk-bxly tablet (Ocuvite Eye Plus Multi) 1 ea PO DAILY 03/13/16 [History Last Taken Unknown] omega-3s 600 so-ttk-skg-other nurxd2n-wfyb oil 1,200 mg capsule 1 ea PO DAILY 03/13/16 [History Last Taken Unknown] duloxetine 60 mg capsule,delayed release 1 capsule PO DAILY 10/24/16 [History Last Taken Unknown] glimepiride 1 mg tablet 1 mg PO DAILY 10/24/16 [History Last Taken Unknown] pravastatin 10 mg tablet 10 mg PO QHS 10/24/16 [History Last Taken Unknown] acetaminophen 500 mg tablet 500 mg PO Q6H PRN PRN Pain 02/14/17 [History Last Taken Unknown] hydrocodone-acetaminophen 5-325mg 5mg-325mg 1 - 2 tab PO Q4H PRN PRN Pain #12 TABLETS 02/14/17 [Rx Last Taken Unknown] melatonin 10 mg tablet 10 mg PO QHS PRN Insomnia 02/14/17 [History Last Taken Unknown] potassium 99 mg tablet 99 mg PO BID 02/14/17 [History Last Taken Unknown] topiramate 100 mg tablet 100 mg PO QHS 02/14/17 [History Last Taken Unknown] topiramate 50 mg tablet 50 mg PO DAILY 02/14/17 [History Last Taken Unknown] famotidine 40 mg tablet 40 mg PO DAILY 01/09/21 [History Last Taken Unknown] nirmatrelvir 300 mg (150 mg x2)-ritonavir 100 mg tablet,dose pack(EUA) (Paxlovid) See Rx Instructions PO .COMPLEX #30 tabs 02/23/22 [Rx Last Taken Unknown] ondansetron 4 mg disintegrating tablet 4 mg PO Q8H PRN nausea and vomiting #10 tabs 02/23/22 [Rx Last Taken Unknown] Allergy/AdvReac Type Severity Reaction Status Date / Time iodine Allergy Angioedema Verified 02/23/22 12:09 acetaminophen AdvReac Unknown Verified 02/23/22 12:09 [From Darvocet-N] azathioprine AdvReac Pain in Verified 02/23/22 12:09 joints goldenseal [zuñiga seal] AdvReac Rash Verified 02/23/22 12:09 meperidine [From Demerol] AdvReac Nausea Verified 02/23/22 12:09 propoxyphene AdvReac Unknown Verified 02/23/22 12:09 [From Darvocet-N] tea tree AdvReac blister Verified 02/23/22 12:09 Family History Father Bleeding disorder Colon cancer Brother Diabetes Mother Thyroid disorder High blood cholesterol Surgical History History of bladder surgery History of cholecystectomy History of colonoscopy History of dental surgery History of exploratory laparotomy History of left knee surgery History of lung biopsy (~08/2015) Hx of hysterectomy Hx of partial mastectomy Hx of tonsillectomy (~1969) Social History Smoking Status: Never smoker second hand exposure: No alcohol intake: never substance use type: does not use caffeine: Yes what type of physical activity do you participate in: none frequency: does not exercise ROS ROS ED Constitutional Constitutional ED: Denies chills or fever(s) Eyes Eyes: Denies change in vision or discharge from eye(s) ENT ENT ED: Denies discharge from eye(s), rhinorrhea or sore throat Cardiovascular Cardiovascular: Denies chest pain or palpitations Respiratory/Chest Respiratory/Chest: Reports cough, dyspnea and sputum Gastrointestinal Gastrointestinal: Reports diarrhea, nausea and vomiting; Denies abdominal pain Genitourinary Genitourinary ED: Reports difficulty urinating; Denies dysuria Musculoskeletal Musculoskeletal: Reports myalgias; Denies back pain or extremity pain Integumentary Denies Abrasions or rash Neurologic Neurologic: Reports weakness; Denies headache(s) Psychiatric Psychiatric: Denies anxiety or depression Allergic/Immunologic Allergic/Immunologic ED: Denies lip swelling or urticaria EXAM Physical Exam Const Vital Signs: 02/23/22 12:09 Temperature 97.5 F L Temperature Source Temporal Pulse Rate 90 Respiratory Rate 20 H Blood Pressure 106/63 Blood Pressure Mean 77 Pulse Ox 97 Oxygen Delivery Method Room Air Positive well nourished and well developed General Appearance ED: well developed HEENT Reports normocephalic, head/scalp atraumatic and dry mucous membranes Mouth ED: Yes dry mucous membranes Mouth: dry mucous membranes Eyes PERRL and EOMs intact bilaterally Neck supple Chest Wall inspection of chest normal and palpation of chest normal Resp normal respiratory effort and clear to auscultation bilaterally Cardio regular rate and regular rhythm GI non-tender Auscultation: hypoactive bowel sounds Palpation: soft Back/Spine no CVA tenderness Extremity normal to inspection Neuro oriented x3 and no sensory deficits noted Sensorium / Orientation: alert Motor Exam: strength 5/5 throughout Psych mental status grossly normal Skin no rashes or lesions noted MDM MDM MDM Narrative Medical decision making narrative: Patient given Zofran and IV fluids. Because she has not been able to tolerate her p.o. antibiotic a dose of Rocephin was given. She is also given a dose of Protonix. Lab work, urinalysis, chest x-ray obtained. Lab Data Attestation: I reviewed the patient's lab results. Labs: Laboratory Results - last 24 hr 02/23/22 02/23/22 02/23/22 12:39 12:39 12:39 WBC 3.5 L RBC 4.90 Hgb 13.6 Hct 43.4 MCV 88.6 MCH 27.8 MCHC 31.3 L RDW Std Deviation 41.4 RDW Coeff of Andrew 12.8 Plt Count 176 MPV 9.2 Immature Gran % (Auto) 0.300 Neut % (Auto) 26.6 L Lymph % (Auto) 63.7 H [place] % (Auto) 9.1 Eos % (Auto) 0.0 Baso % (Auto) 0.3 Absolute Neuts (auto) 0.9 L Absolute Lymphs (auto) 2.25 Nucleated RBC % 0 Platelet Estimate ADEQUATE RBC Morphology NORM C+C Sodium 142 Potassium 3.9 Chloride 109 H Carbon Dioxide 27.0 Anion Gap 6 BUN 9 Creatinine 0.96 Estim Creat Clear Calc 59.84 Est GFR (MDRD) Af Amer 76 Est GFR (MDRD) Non-Af 62 BUN/Creatinine Ratio 9.3 L Glucose 109 H Calcium 9.1 Total Bilirubin 0.30 Direct Bilirubin 0.09 AST 16 ALT 15 Alkaline Phosphatase 65 Troponin I High Sens 4 Total Protein 7.2 Albumin 3.5 Globulin 3.7 Lipase 246 Urine Color Urine Clarity Urine pH Ur Specific [place] Urine Protein Urine Glucose (UA) Urine Ketones Urine Occult Blood Urine Nitrite Urine Bilirubin Urine Urobilinogen Ur Leukocyte Esterase Urine RBC Urine WBC Ur Squamous Epith Cells Urine Bacteria Urine Mucus 02/23/22 14:50 WBC RBC Hgb Hct MCV MCH MCHC RDW Std Deviation RDW Coeff of Andrew Plt Count MPV Immature Gran % (Auto) Neut % (Auto) Lymph % (Auto) [place] % (Auto) Eos % (Auto) Baso % (Auto) Absolute Neuts (auto) Absolute Lymphs (auto) Nucleated RBC % Platelet Estimate RBC Morphology Sodium Potassium Chloride Carbon Dioxide Anion Gap BUN Creatinine Estim Creat Clear Calc Est GFR (MDRD) Af Amer Est GFR (MDRD) Non-Af BUN/Creatinine Ratio Glucose Calcium Total Bilirubin Direct Bilirubin AST ALT Alkaline Phosphatase Troponin I High Sens Total Protein Albumin Globulin Lipase Urine Color Yellow Urine Clarity Clear Urine pH 6.0 Ur Specific [place] 1.010 Urine Protein 15 H Urine Glucose (UA) Normal Urine Ketones Negative Urine Occult Blood Negative Urine Nitrite Negative Urine Bilirubin Negative Urine Urobilinogen Normal Ur Leukocyte Esterase Negative Urine RBC 0 SEEN Urine WBC 0 SEEN Ur Squamous Epith Cells 0 SEEN Urine Bacteria 0 SEEN Urine Mucus 0 SEEN Radiography Chest X-Ray - ED: 1 View, Read by ED Physician, Normal, Heart, Lungs, Mediastinum and No Infiltrates Diagnostic Testing: Clinical Impression(s) from Imaging Studies Chest X-Ray 02/23/22 13:02 IMPRESSION: No acute cardiopulmonary disease. Electronically Signed: Bossman Landry MD at 13:42 EDT , EKG Initial EKG: Attestation: I personally reviewed and interpreted this EKG as follows: Interpretation: Sinus Rhythm (Sinus at 74 with no acute ischemia.) Treatment and Re-Evaluation Narrative: On repeat evaluation patient sleeping comfortably and easily awakened by nursing staff. She is tolerating ice water at this time. Lab work reveals low white count at 3.5 consistent with viral infection. Chemistry studies unremarkable and troponin normal. Urinalysis reveals no acute infection at this time. Patient will be given a prescription for Zofran to help control nausea at home. She will also be given a prescription for Paxlovid. Supportive care discussed. Discharge Plan Triage Chief Complaint: Nausea/Vomiting/Diarrhea ED Provider: Brianne Lewis Dx/Rx/DC Orders Clinical Impression: COVID-19, Vomiting Instructions: Coronavirus Disease 2019 (COVID-19): Overview, Coronavirus Disease 2019 (COVID-19): Caring for Yourself or Others, ED Vomiting (Adult) Prescriptions: New ondansetron 4 mg tablet,disintegrating 4 mg PO Q8H PRN (Reason: nausea and vomiting) Qty: 10 0RF Paxlovid (EUA) 300 mg (150 mg x 2)-100 mg tablets,dose pack See Rx Instructions .ROUTE .COMPLEX Qty: 30 0RF Rx Instructions: take TWO 150 mg tablets of nirmatrelvir with ONE 100 mg tablet of ritonavir twice daily for 5 days No Action famotidine 40 mg tablet 40 mg PO DAILY cyclobenzaprine 10 MG tablet 5 mg PO QHS PRN (Reason: Pain) levothyroxine 125 MCG tablet 125 mcg PO DAILY metformin 1,000 MG tablet,ER miya.retention 24 hr 1,000 mg PO DAILY cholecalciferol (vitamin D3) [Vitamin D3] 1,000 UNIT tablet 1,000 unit PO BID uvqmz-2r-dvv-epa-fish oil 1 EACH capsule 1 ea PO DAILY sc-na-YB-vit T-xpers-uvqg-zeax [Ocuvite Eye Plus Multi] 1 EACH tablet 1 ea PO DAILY glimepiride 1 MG tablet 1 mg PO DAILY pravastatin 10 MG tablet 10 mg PO QHS duloxetine 60 MG capsule,delayed release(DR/EC) 1 capsule PO DAILY acetaminophen 500 MG tablet 500 mg PO Q6H PRN PRN (Reason: Pain) potassium 99 MG tablet 99 mg PO BID topiramate 100 MG tablet 100 mg PO QHS topiramate 50 MG tablet 50 mg PO DAILY melatonin 10 MG tablet 10 mg PO QHS PRN (Reason: Insomnia) hydrocodone-acetaminophen 1 TABLET tablet 1 - 2 tab PO Q4H PRN PRN (Reason: Pain) Qty: 12 0RF Primary Care Provider: Juwan Hernandez Chi Referrals: Juwan Hernandez Chi, MD [Primary Care Provider] - 1-2 Weeks Disposition Disposition: Home, Self Care
[2022-02-23] MEDS: 0.9% Normal Saline 1,000 ML 1000 ML IV (12:35)
[2022-02-23] MEDS: Ondansetron 4 MG/2 ML Vial IV (12:35)
[2022-02-23 12:49] LABS: Absolute Lymphocyte Count 2.25 X10^3/uL (0.83-4.51); Absolute Neutrophil Count 0.9 X10^3/uL (2.0-7.7); Basophil# 0.01 X10^3/uL; Basophil% 0.3 % (0-1); Hematocrit 43.4 % (37-47); Hemoglobin 13.6 g/dL (12.0-15.0); Lymphocyte # 2.25 X10^3/ul (0.83-4.51); Lymphocyte % 63.7 % (19-41); Mean Corp Hgb Conc 31.3 g/dL (32-36); Mean Corpuscular Hgb 27.8 pg (27.0-32.0); Mean Corpuscular Volume 88.6 fL (81-99); Mean Platelet Vol. 9.2 fl (6.2-12.0); Monocyte# 0.32 X10^3/uL; Monocyte% 9.1 % (0-10); NRBC Flagged by Analyzer 0 % (0-5); Neutrophil # 0.94 X10^3/uL (2.7-7.7); Neutrophil % 26.6 % (47-70); POSITIVE DIFFERENTIAL YES; Platelet Count 176 K/mm3 (150-450); RBC Distribution Width CV 12.8 % (11.6-14.6); RBC Distribution Width SD 41.4 fl (35.1-43.9); White Blood Count 3.5 K/mm3 (4.4-11.0)
[2022-02-23 12:54] LABS: Differential Indicated SCAN CRITERIA MET
--- NOTE | 2022-02-23 13:02 | RAD_ITS ---
EXAM: XR CHEST, 1 VIEW CLINICAL INDICATION: sob, covid TECHNIQUE: Frontal view of the chest. This report was created using Help/Systems report generation technology. COMPARISON: Comparison June 04, 2021. FINDINGS: LUNGS AND PLEURAL SPACES: Normal. No consolidation or edema. No pneumothorax. No effusion. HEART: Normal heart size. MEDIASTINUM: Central airways and mediastinal contour are unremarkable. BONES/JOINTS: No acute abnormality. SOFT TISSUES: Normal. RAD/Chest 1 View (Portable) IMPRESSION: No acute cardiopulmonary disease. Electronically Signed: Bossman Landry MD at 13:42 EDT ,
[2022-02-23 13:04] LABS: AST(SGOT) 16 U/L (15-37); Alanine Aminotransfer ALT/SGPT 15 U/L (13-56); Albumin, Serum 3.5 g/dL (3.2-5.0); Alkaline Phosphatase 65 U/L (45-117); Anion Gap 6 (5-15); BUN 9 mg/dL (7-18); BUN/Creat Ratio 9.3 RATIO (10-20); Bilirubin, Direct 0.09 mg/dL (0.00-0.30); Calcium,Total 9.1 mg/dL (8.5-10.1); Chloride 109 mmol/L (98-107); Creatinine, Serum 0.96 mg/dL (0.55-1.02); EST Glomerular Filtration Rate 62 mL/min (>60); Est Glom Filt Rate - Afr Amer 76 mL/min (>60); Estimated Creatinine Clearance 59.84 ml/min; Globulin 3.7 g/dL (2.2-4.2); Glucose 109 mg/dL (74-106); Lipase 246 U/L (73-393); Potassium 3.9 mmol/L (3.5-5.1); Protein, Total 7.2 g/dL (6.4-8.2); Sodium Level 142 mmol/L (136-145)
[2022-02-23 13:20] LABS: Platelet Estimate ADEQUATE (ADEQ); Red Cell Morphology NORM C+C NORMAL (NORM C&C)
[2022-02-23] MEDS: Ceftriaxone 1 GM/50 ML BAG IV (13:27)
[2022-02-23] MEDS: 0.9% Normal Saline 1,000 ML 150 ML IV (13:27)
[2022-02-23 13:52] LABS: Troponin-I HS (w/2H Reflex) 4 pg/mL (3.0-54.0)
[2022-02-23 14:07] VITALS: RESP 16
[2022-02-23 14:55] LABS: Bacteria 0 SEEN /hpf (None Seen); Mucous, Urine 0 SEEN /hpf (<or=2+); Red Blood Cells-Urine 0 SEEN /hpf (0-5); Squamous Epithelial Cells - UA 0 SEEN /hpf (5-10); White Blood Cells 0 SEEN /hpf (0-5)
[2022-02-23 14:57] LABS: Color, Urine Yellow (Yellow); Glucose, Dipstick Normal (Normal); Ketone-Dipstick Negative (Negative); Leukocyte Esterase-Dipstick Negative /ul (Negative); Nitrite-Dipstick Negative (Negative); Occult Blood-Urine Negative /ul (Negative); Protein-Dipstick 15 mg/dl (Negative); Urine Bilirubin Dipstick Negative (Negative); Urine Clarity Clear (Clear); Urine Urobilinogen Normal (Normal)
[2022-02-23 15:34] LABS: Reflex Troponin-HS? (from REC) Y
== END 2022-02-23 15:33 | disposition home or self-care (01) ==
PROVIDERS: Emergency Provider Emergency Medicine; PCP Family Medicine Geriatric Medicine; Visit Provider Emergency Medicine
DX: U07.1 COVID-19 (principal); R56.9 Unspecified convulsions; E11.9 Type 2 diabetes mellitus without complications; R11.10 Vomiting, unspecified; Z79.84 Long term (current) use of oral hypoglycemic drugs; Z79.899 Other long term (current) drug therapy
CPT/HCPCS: 71045; 80048; 80076; 81001; 83690; 84484; 85025; 93005; 96361; 96365; 96367; 96375; 99284; J7030; J2405

== ENCOUNTER → 2022-05-21 | Outpatient (CLI) | payer MEDICARE, SELFPAY ==
[2022-05-21 17:58] LABS: Absolute Lymphocyte Count 2.12 X10^3/uL (0.83-4.51); Absolute Neutrophil Count 4.8 X10^3/uL (2.0-7.7); Basophil# 0.04 X10^3/uL; Basophil% 0.5 % (0-1); Eosinophils% 2.5 % (0-5); Hematocrit 45.4 % (37-47); Hemoglobin 14.1 g/dL (12.0-15.0); Lymphocyte # 2.12 X10^3/ul (0.83-4.51); Mean Corp Hgb Conc 31.1 g/dL (32-36); Mean Corpuscular Hgb 28.3 pg (27.0-32.0); Mean Platelet Vol. 10.3 fl (6.2-12.0); Monocyte# 0.67 X10^3/uL; Monocyte% 8.5 % (0-10); NRBC Flagged by Analyzer 0.3 % (0-5); Neutrophil # 4.79 X10^3/uL (2.7-7.7); Neutrophil % 61.1 % (47-70); Platelet Count 230 K/mm3 (150-450); RBC Distribution Width CV 13.2 % (11.6-14.6); RBC Distribution Width SD 43.8 fl (35.1-43.9); Red Blood Count 4.99 M/mm3 (4.2-5.4); White Blood Count 7.9 K/mm3 (4.4-11.0)
[2022-05-21 18:20] LABS: Vitamin D,25 Hydroxy 40.4 ng/mL
[2022-05-21 18:40] LABS: Albumin, Serum 3.7 g/dL (3.2-5.0); BUN 18 mg/dL (7-18); BUN/Creat Ratio 21.2 RATIO (10-20); Creatinine, Serum 0.85 mg/dL (0.55-1.02); EST Glomerular Filtration Rate 72 mL/min (>60); Est Glom Filt Rate - Afr Amer 87 mL/min (>60); Glucose 69 mg/dL (74-106); Protein, Total 7.1 g/dL (6.4-8.2)
[2022-05-21 18:41] LABS: ALB/GLOB Ratio 1.1 RATIO (0.9-2.4); AST(SGOT) 12 U/L (15-37); Alanine Aminotransfer ALT/SGPT 20 U/L (13-56); Alkaline Phosphatase 74 U/L (45-117); Anion Gap 9 (5-15); Calcium,Total 9.1 mg/dL (8.5-10.1); Chloride 104 mmol/L (98-107); Cholesterol 253 mg/dL (200); Globulin 3.4 g/dL (2.2-4.2); High Density Lipoprotein 50 mg/dL; Potassium 3.9 mmol/L (3.5-5.1); Sodium Level 143 mmol/L (136-145); Thyroid Stim Hormone (TSH) 0.69 uIU/mL (0.358-3.74); Triglycerides 181 mg/dL; Very Low Density Lipoprotein 36 mg/dL (5-40)
== END | disposition home or self-care (01) ==
LOC: POLAB3 14:09
PROVIDERS: PCP Family Medicine Geriatric Medicine; Visit Provider Family Medicine Geriatric Medicine
DX: E78.5 Hyperlipidemia, unspecified (principal); E11.65 Type 2 diabetes mellitus with hyperglycemia; E55.9 Vitamin D deficiency, unspecified; R53.83 Other fatigue
CPT/HCPCS: 36415; 80053; 80061; 82306; 84443; 85025

== ENCOUNTER 2022-07-28 10:56 | Inpatient (IN) | payer MEDICARE, SELFPAY ==
[2022-07-28 11:02] VITALS: BP 143/75; PULSE 75; RESP 17; TEMP 36.7; O2SAT 100; BMI 32.2
--- NOTE | 2022-07-28 11:34 | CT_ITS ---
STUDY: CT ABDOMEN AND PELVIS WITHOUT CONTRAST REASON FOR EXAM: Female, 62 years old. llq pain with nausea since last night, rectal bleeding RADIATION DOSAGE (If Supplied By Facility): CTDIvol = ( 14.37 ) mGy, DLP = ( 728.78 ) mGycm TECHNIQUE: Transaxial images were obtained from the dome of the diaphragm to the symphysis pubis without oral contrast, and without intravenous contrast. Sagittal and coronal images were reconstructed. Individualized dose optimization techniques were used for this CT. COMPARISON: Comparison is made with prior study dated 01/14/2021. FINDINGS: There is a 1.1 cm slightly irregular nodular density seen in the anterior aspect of the left lower lobe adjacent to the minor fissure. This was not seen on prior study. Stable minimal linear scarring in the lateral aspect of the right lower lobe. The visualized portions of the heart are within normal limits. Normal liver. There are surgical clips in the gallbladder fossa consistent with a prior cholecystectomy. Normal spleen. Normal pancreas. Normal bilateral adrenal glands. Normal right kidney. Mild dilatation of the left renal pelvis although no ureteral obstruction is seen at this time. Normal visualized stomach. Normal small intestine. There are scattered colonic diverticula consistent with diverticulosis. Mild increased markings are seen in the mesenteric fat in the central portion of the pelvis. Mild degree of inflammatory change of the sigmoid colon should be ruled out. There is non-visualization of the appendix. There is scattered atherosclerotic calcification of the abdominal aorta, without a demonstrated aneurysm. Normal inferior vena cava. There is borderline retroperitoneal lymphadenopathy with enlarged nodes no greater than 10mm in the short axis diameter. Normal urinary bladder. There is absence of the uterus consistent with a prior hysterectomy. Calcified phleboliths are seen in the pelvis. Normal abdominal wall. There are mild degenerative changes of the visualized lumbar spine. CT/Abdomen/Pelvis without Cont IMPRESSION: Status post cholecystectomy and hysterectomy. 1.1 cm slightly irregular nodular density is seen in the anterior aspect of the left lower lobe adjacent to the left minor fissure. Scattered sigmoid diverticula. Findings suggest a mild degree inflammatory changes in the mesentery surrounding the sigmoid colon. Electronically Signed: Jaden Steele MD at 13:10 EST ,
--- NOTE | 2022-07-28 11:36 | ED.VIS.GI ---
HPI HPI - GI History of Present Illness Chief Complaint: Abd Pain Informant: patient Abdominal Pain/Flank Pain Onset: Yesterday Context: Gradual Onset Timing: Continuous Quality: Aching Location: - (Lower abdomen) Current Severity: Severe Maximum Severity: Severe Worsened by: Nothing Relieved by: Nothing Nausea/Vomiting/Emesis GI Symptom: Positive for Nausea; Negative for Vomiting Diarrhea/Melena/Hematochezia GI Symptom: Positive for Diarrhea and Hematochezia; Negative for Melena Onset: Yesterday Severity: Mild Associated Symptoms Associated Symptoms: Positive for Urgency; Negative for Dysuria or Frequency Narrative Narrative: Patient started having abdominal pain last night as well as the feeling like she needs to urinate but then difficulty getting it out. No dysuria when she does urinate. Nausea but no vomiting. The pain is lower abdomen seems more to the left. Never had this before. Prior remote hysterectomy no other abdominal surgeries. No history of bowel obstructions. Pain does not radiate into her back or chest. No fevers or chills. As a separate problem that the patient was concerned may or may not be related to her abdominal pain, 3 days ago she slipped in her home on her hardwood floor, she injured her right great toe/foot and scraped her knee, subsequently falling flat on her back. She states she was able to walk after that she did not hit her head, she had a back massage yesterday that felt good and the back pain is gone but her right foot is still bothering her, the knee is just scraped. [facility] Medical History Abdominal pain, RLQ Acid reflux Constipation Diabetes mellitus Dysphagia Fatigue Hemorrhoids Hx of angiography Nausea Numbness and tingling Seizure Sleep apnea SOB (shortness of breath) on exertion Syncope, vasovagal Home Medications cholecalciferol (vitamin D3) 25 mcg (1,000 unit) tablet (Vitamin D3) 1,000 unit PO DAILY 03/13/16 [History Last Taken Unknown] cyclobenzaprine 10 mg tablet 5 mg PO QHS PRN Pain 03/13/16 [History Last Taken Unknown] levothyroxine 125 mcg tablet 100 mcg PO DAILY 03/13/16 [History Last Taken Unknown] plkyxwrn-bmz-DW 200 mcg-vit K 15 mcg-lycope 150 wyp-bsuxgy-sxcb tablet (Ocuvite Eye Plus Multi) 1 ea PO DAILY 03/13/16 [History Last Taken Unknown] duloxetine 60 mg capsule,delayed release 1 capsule PO DAILY 10/24/16 [History Last Taken Unknown] acetaminophen 500 mg tablet 500 mg PO Q6H PRN PRN Pain 02/14/17 [History Last Taken Unknown] melatonin 10 mg tablet 10 mg PO QHS PRN Insomnia 02/14/17 [History Last Taken Unknown] topiramate 100 mg tablet 100 mg PO BID 02/14/17 [History Last Taken Unknown] dulaglutide 1.5 mg/0.5 mL subcutaneous pen injector (Trulicity) 1.5 mg subcut TH 07/28/22 [History Last Taken Unknown] levetiracetam 500 mg tablet 500 mg PO BID 07/28/22 [History Last Taken Unknown] pantoprazole 40 mg tablet,delayed release 40 mg PO DAILY 07/28/22 [History Last Taken Unknown] Allergy/AdvReac Type Severity Reaction Status Date / Time iodine Allergy Angioedema Verified 07/28/22 10:56 acetaminophen AdvReac Unknown Verified 07/28/22 10:56 [From Darvocet-N] azathioprine AdvReac Pain in Verified 07/28/22 10:56 joints goldenseal [zuñiga seal] AdvReac Rash Verified 07/28/22 10:56 meperidine [From Demerol] AdvReac Nausea Verified 07/28/22 10:56 propoxyphene AdvReac Unknown Verified 07/28/22 10:56 [From Darvocet-N] tea tree AdvReac blister Verified 07/28/22 10:56 Family History Father Bleeding disorder Colon cancer Brother Diabetes Mother Thyroid disorder High blood cholesterol Surgical History History of bladder surgery History of cholecystectomy History of colonoscopy History of dental surgery History of exploratory laparotomy History of left knee surgery History of lung biopsy (~08/2015) Hx of hysterectomy Hx of partial mastectomy Hx of tonsillectomy (~1969) Social History Smoking Status: Never smoker second hand exposure: No alcohol intake: never substance use type: does not use caffeine: Yes what type of physical activity do you participate in: none frequency: does not exercise ROS ROS ED Constitutional Constitutional ED: Denies chills or fever(s) Eyes Eyes: Denies change in vision or diplopia ENT ENT ED: Denies rhinorrhea or sore throat Cardiovascular Cardiovascular: Denies chest pain or palpitations Respiratory/Chest Respiratory/Chest: Denies cough or dyspnea Gastrointestinal Gastrointestinal: Reports as per HPI, abdominal pain, diarrhea, hematochezia and nausea; Denies vomiting Genitourinary Genitourinary ED: Denies dysuria or hematuria Musculoskeletal Musculoskeletal: Reports as per HPI and extremity pain; Denies back pain or neck pain Integumentary Denies abscess or rash Neurologic Neurologic: Denies headache(s), paresthesias or weakness Psychiatric Psychiatric: Denies anxiety or suicidal thoughts EXAM Physical Exam Const Vital Signs: 07/28/22 11:02 Temperature 98.0 F Temperature Source Temporal Pulse Rate 75 Respiratory Rate 17 Blood Pressure 143/75 H Blood Pressure Mean 97 Pulse Ox 100 Oxygen Delivery Method Room Air Positive well nourished and well developed General Appearance ED: well developed and NAD HEENT Reports moist mucous membranes normocephalic and atraumatic Eyes PERRL and EOMs intact bilaterally Neck full ROM and supple Resp normal respiratory effort and clear to auscultation bilaterally Cardio regular rate, regular rhythm and no murmurs GI non-distended GI Narrative: Tender in the left lower quadrant distally, no guarding or rebound tenderness, no pulsatile masses. Hypoactive but present bowel sounds. Auscultation: hypoactive bowel sounds Palpation: soft Back/Spine no CVA tenderness Back/Spine Narrative: For range of motion without any spinal tenderness or signs of trauma. General Back: other FROM Extremity normal to inspection and full ROM Extremity Narrative: Patient has tenderness at the distal right first metatarsal where there is an abrasion. No deformity. No other extremity tenderness except very mildly at an abrasion over the right patella, but her extensor mechanism is intact there is no swelling or effusion able with stressing without pain, and she has full range of motion of the knee including flexion with negative anterior posterior drawer signs. General Extremety ED: Yes tenderness; Negative for edema or pulses abnormal General Extremity: Negative for edema or pulses abnormal Neuro oriented x3, CN's II-XII intact bilaterally and no sensory deficits noted Sensorium / Orientation: awake and alert Motor Exam: strength 5/5 throughout Skin no rashes or lesions noted and no wounds MDM MDM MDM Narrative Medical decision making narrative: Patient with 2 separate issues here, her left lower quadrant pain, as well as her fall. With regards to the fall, I only think she needed her right foot imaged, 3 view x-ray series on my interpretation is negative for any acute fracture specially at the distal first metatarsal which is the bone of concern, radiology in agreement. I reassured her with regards to that. With regards to her abdomen, I did labs and a CT as well as urinalysis, the latter of which is unremarkable. She does have a leukocytosis. Her hemoglobin is 14.7 and not anemic, similar to what she was a couple months ago in reviewing her old labs. Her CT shows evidence of diverticulosis, as well as inflammation, both in the sigmoid colon. I suspect given the clinical symptoms and exam that this indicates acute diverticulitis. My interpretation of the CT agrees with that of the radiologist. Given that she is also having intermittent rectal bleeding which could be related to diverticulitis, and has a significant leukocytosis, I advised IV antibiotics and admission to the hospital, she is comfortable with that, and feeling much improved after morphine although still in significant discomfort. Patient is not anticoagulated. Lab Data Attestation: I reviewed the patient's lab results. Labs: Laboratory Results - last 24 hr 07/28/22 07/28/22 07/28/22 11:45 11:45 12:00 WBC 17.6 H RBC 5.10 Hgb 14.7 Hct 45.6 MCV 89.4 MCH 28.8 MCHC 32.2 RDW Std Deviation 41.8 RDW Coeff of Andrew 13.0 Plt Count 228 MPV 9.5 Immature Gran % (Auto) 0.600 Neut % (Auto) 82.9 H Lymph % (Auto) 10.7 L [place] % (Auto) 5.5 Eos % (Auto) 0.0 Baso % (Auto) 0.3 Absolute Neuts (auto) 14.6 H Absolute Lymphs (auto) 1.88 Nucleated RBC % 0 Sodium 139 Potassium 3.6 Chloride 106 Carbon Dioxide 28.0 Anion Gap 5 BUN 13 Creatinine 0.94 Estim Creat Clear Calc 60.34 Est GFR (MDRD) Af Amer 78 Est GFR (MDRD) Non-Af 64 BUN/Creatinine Ratio 13.9 Glucose 130 H Calcium 9.5 Urine Color Yellow Urine Clarity Sl. Cloudy Urine pH 6.5 Ur Specific [place] 1.010 Urine Protein 15 H Urine Glucose (UA) Normal Urine Ketones Negative Urine Occult Blood Negative Urine Nitrite Negative Urine Bilirubin Negative Urine Urobilinogen Normal Ur Leukocyte Esterase 25 H Urine RBC 0 SEEN Urine WBC 0-5 SEEN Ur Squamous Epith Cells 0 SEEN Urine Bacteria 0 SEEN Urine Mucus 0 SEEN Radiography Diagnostic Testing: Clinical Impression(s) from Imaging Studies Abdomen/Pelvis CT 07/28/22 11:34 IMPRESSION: Status post cholecystectomy and hysterectomy. 1.1 cm slightly irregular nodular density is seen in the anterior aspect of the left lower lobe adjacent to the left minor fissure. Scattered sigmoid diverticula. Findings suggest a mild degree inflammatory changes in the mesentery surrounding the sigmoid colon. Electronically Signed: Jaden Steele MD at 13:10 EST , Foot X-Ray 07/28/22 12:32 IMPRESSION: Degenerative changes. Calcaneal spurs. Electronically Signed: Jaden Steele MD at 13:12 EST , Discharge Plan Dx/Rx/DC Orders Clinical Impression: Acute diverticulitis, Acute lower gastrointestinal bleeding, Leukocytosis, Contusion of foot, right, Fall on same level from slipping as cause of accidental injury Disposition Disposition: [facility]
[2022-07-28 11:57] LABS: Absolute Lymphocyte Count 1.88 X10^3/uL (0.83-4.51); Absolute Neutrophil Count 14.6 X10^3/uL (2.0-7.7); Basophil# 0.05 X10^3/uL; Basophil% 0.3 % (0-1); Hematocrit 45.6 % (37-47); Hemoglobin 14.7 g/dL (12.0-15.0); Lymphocyte # 1.88 X10^3/ul (0.83-4.51); Lymphocyte % 10.7 % (19-41); Mean Corp Hgb Conc 32.2 g/dL (32-36); Mean Corpuscular Hgb 28.8 pg (27.0-32.0); Mean Corpuscular Volume 89.4 fL (81-99); Mean Platelet Vol. 9.5 fl (6.2-12.0); Monocyte# 0.96 X10^3/uL; Monocyte% 5.5 % (0-10); NRBC Flagged by Analyzer 0 % (0-5); Neutrophil # 14.61 X10^3/uL (2.7-7.7); Neutrophil % 82.9 % (47-70); Platelet Count 228 K/mm3 (150-450); RBC Distribution Width SD 41.8 fl (35.1-43.9); White Blood Count 17.6 K/mm3 (4.4-11.0)
[2022-07-28 12:05] LABS: Bacteria 0 SEEN /hpf (None Seen); Mucous, Urine 0 SEEN /hpf (<or=2+); Red Blood Cells-Urine 0 SEEN /hpf (0-5); Squamous Epithelial Cells - UA 0 SEEN /hpf (5-10)
[2022-07-28] MEDS: Ondansetron 4 MG/2 ML Vial IV (12:07)
[2022-07-28] MEDS: Morphine 4 MG/ML Syringe IV (12:07)
[2022-07-28] MEDS: 0.9% Normal Saline 1,000 ML 1000 ML IV (12:08)
[2022-07-28 12:11] LABS: Color, Urine Yellow (Yellow); Glucose, Dipstick Normal (Normal); Ketone-Dipstick Negative (Negative); Leukocyte Esterase-Dipstick 25 /ul (Negative); Nitrite-Dipstick Negative (Negative); Occult Blood-Urine Negative /ul (Negative); Protein-Dipstick 15 mg/dl (Negative); Urine Bilirubin Dipstick Negative (Negative); Urine Clarity Sl. Cloudy (Clear); Urine Urobilinogen Normal (Normal); Urine pH 6.5 (5.0 - 8.0)
[2022-07-28 12:12] LABS: Anion Gap 5 (5-15); BUN 13 mg/dL (7-18); BUN/Creat Ratio 13.9 RATIO (10-20); Calcium,Total 9.5 mg/dL (8.5-10.1); Chloride 106 mmol/L (98-107); Creatinine, Serum 0.94 mg/dL (0.55-1.02); EST Glomerular Filtration Rate 64 mL/min (>60); Est Glom Filt Rate - Afr Amer 78 mL/min (>60); Estimated Creatinine Clearance 60.34 ml/min; Glucose 130 mg/dL (74-106); Potassium 3.6 mmol/L (3.5-5.1); Sodium Level 139 mmol/L (136-145)
[2022-07-28 12:24] LABS: White Blood Cells 0-5 SEEN /hpf (0-5)
--- NOTE | 2022-07-28 12:32 | RAD_ITS ---
STUDY: X-RAY - RIGHT FOOT CLINICAL: Female, 62 years old. Pain/injury TECHNIQUE: 3 view(s) of the foot. COMPARISON: None. FINDINGS: Calcaneal spurs. Degenerative changes at the talar cuneiform joint. Normal metatarsi. Normal metatarsophalangeal joint of the great toe. Normal tibial and fibular sesamoid bones. Normal interphalangeal joint of the great toe. Normal phalanges of the great toe. Normal second through fifth metatarsophalangeal joints. Normal interphalangeal joints and phalanges of the lesser toes. The soft tissue structures are unremarkable. RAD/Foot min 3 Views IMPRESSION: Degenerative changes. Calcaneal spurs. Electronically Signed: Jaden Steele MD at 13:12 EST ,
--- NOTE | 2022-07-28 14:04 | HP.PCM.HOS_ITS ---
HPI - General General Date of Admission: 07/28/22 Date of Service: 07/28/22 Chief Complaint: abdominal pain HPI Narrative JOSE GUADALUPE FISHER, is a 62 F with a PMH as outlined who presents via the ED on 07/28/2022 with a complaint of abdominal pain. Pain started on the night before admission, with associated nausea. She denied any fever, chills, cough, chest pain, palpitations, dizziness, vomiting or diarrhea. Review of systems was otherwise negative. Patient said she wasnt aware she had divertulosis. She says she has had a colonoscopy before, though records arent in our records. She has also been having associated rectal bleeding. Vitals were BP of 143/75, OH of 75, RR of 17 and temp of 98F. She was saturating at 100% on room air. CBC showed wbc of 17.6, Hb of 14.7 and platelets of 228. Chemistry was largely unremarkable apart from glucose of 130, and urinalysis showed no evidence of UTI. Ct abdomen and pelvis showed scattered sigmoid diverticula and findings suggestive of a mild degree of inflammatory changes in alisia mesentery surrounding the sigmoid colon. She is being admitted for acute sigmoid diverticulitis. [facility] Medical History Abdominal pain, RLQ Acid reflux Constipation Diabetes mellitus Dysphagia Fatigue Hemorrhoids Hx of angiography Nausea Numbness and tingling Seizure Sleep apnea SOB (shortness of breath) on exertion Syncope, vasovagal Home Medications cholecalciferol (vitamin D3) 25 mcg (1,000 unit) tablet (Vitamin D3) 1,000 unit PO DAILY 03/13/16 [History Last Taken Unknown] cyclobenzaprine 10 mg tablet 5 mg PO QHS PRN Pain 03/13/16 [History Last Taken Unknown] levothyroxine 125 mcg tablet 100 mcg PO DAILY 03/13/16 [History Last Taken Unknown] bdapemyi-zuh-VA 200 mcg-vit K 15 mcg-lycope 150 lgu-qwzmny-mcjs tablet (Ocuvite Eye Plus Multi) 1 ea PO DAILY 03/13/16 [History Last Taken Unknown] duloxetine 60 mg capsule,delayed release 1 capsule PO DAILY 10/24/16 [History Last Taken Unknown] acetaminophen 500 mg tablet 500 mg PO Q6H PRN PRN Pain 02/14/17 [History Last Taken Unknown] melatonin 10 mg tablet 10 mg PO QHS PRN Insomnia 02/14/17 [History Last Taken Unknown] topiramate 100 mg tablet 100 mg PO BID 02/14/17 [History Last Taken Unknown] dulaglutide 1.5 mg/0.5 mL subcutaneous pen injector (Trulicity) 1.5 mg subcut TH 07/28/22 [History Last Taken Unknown] levetiracetam 500 mg tablet 500 mg PO BID 07/28/22 [History Last Taken Unknown] pantoprazole 40 mg tablet,delayed release 40 mg PO DAILY 07/28/22 [History Last Taken Unknown] Allergy/AdvReac Type Severity Reaction Status Date / Time iodine Allergy Angioedema Verified 07/28/22 10:56 acetaminophen AdvReac Unknown Verified 07/28/22 10:56 [From Darvocet-N] azathioprine AdvReac Pain in Verified 07/28/22 10:56 joints goldenseal [zuñiga seal] AdvReac Rash Verified 07/28/22 10:56 meperidine [From Demerol] AdvReac Nausea Verified 07/28/22 10:56 propoxyphene AdvReac Unknown Verified 07/28/22 10:56 [From Darvocet-N] tea tree AdvReac blister Verified 07/28/22 10:56 Family History Father Bleeding disorder Colon cancer Brother Diabetes Mother Thyroid disorder High blood cholesterol Surgical History History of bladder surgery History of cholecystectomy History of colonoscopy History of dental surgery History of exploratory laparotomy History of left knee surgery History of lung biopsy (~08/2015) Hx of hysterectomy Hx of partial mastectomy Hx of tonsillectomy (~1969) Social History Smoking Status: Never smoker second hand exposure: No alcohol intake: never substance use type: does not use caffeine: Yes what type of physical activity do you participate in: none frequency: does not exercise ROS Constitutional Constitutional: Reports malaise and weakness; Denies anorexia, chills, fatigue or fever(s) Eyes Eyes: Denies change in vision ENT HEENT: Denies dysphagia, headache(s) or hearing loss Cardiovascular Cardiovascular: Denies chest pain, dyspnea on exertion, edema, lightheadedness, orthopnea, palpitations or rapid heart rate Respiratory/Chest Respiratory/Chest: Denies cough, dyspnea, shortness of breath at rest or s hortness of breath with exertion Gastrointestinal Gastrointestinal: Reports abdominal pain, hematochezia and nausea; Denies coffee ground emesis, constipation, diarrhea, dyspepsia, hematemesis, loose stools, melena or vomiting Genitourinary Genitourinary: Denies burning urination or dysuria Musculoskeletal Musculoskeletal: Denies arthralgias Neurologic Neurologic: Denies confusion, dizziness or focal weakness Vital Signs Vital Signs Vital Signs: 07/28/22 11:02 Temperature 98.0 F Temperature Source Temporal Pulse Rate 75 Respiratory Rate 17 Blood Pressure 143/75 H Blood Pressure Mean 97 Pulse Ox 100 Oxygen Delivery Method Room Air Weight Weight: 206 lb Body Mass Index (BMI) 32.2 Physical Exam Const alert, oriented x3 and no apparent distress General Appearance: cooperative HEENT normocephalic, head/scalp atraumatic, hearing grossly normal bilaterally and moist oral mucous membranes Mouth: oral and palatal mucosa normal Eyes PERRL, EOMs intact bilaterally and conjunctivae normal Neck no lymphadenopathy and supple Resp normal respiratory effort, no retractions, no use of accessory muscles and clear to auscultation bilaterally Cardio regular rate, regular rhythm, S1 normal heart sound, S2 normal heart sound and no murmurs GI normal to inspection, nondistended, normoactive bowel sounds and non-distended GI Narrative: generalised tenderness, no guarding or rebound tenderness Extremity normal to inspection and full ROM Neuro oriented x3, CN's II-XII intact bilaterally and moves all extremities Sensorium / Orientation: awake and alert Motor Exam: strength 5/5 throughout Psych affect normal Results Lab / Micro Data Result Diagrams: 07/28/22 11:45 07/28/22 11:45 Labs: Laboratory Results - last 24 hr 07/28/22 11:45: WBC 17.6 H, RBC 5.10, Hgb 14.7, Hct 45.6, MCV 89.4, MCH 28.8, MCHC 32.2, RDW Std Deviation 41.8, RDW Coeff of Andrew 13.0, Plt Count 228, MPV 9.5, Immature Gran % (Auto) 0.600, Neut % (Auto) 82.9 H, Lymph % (Auto) 10.7 L, [place] % (Auto) 5.5, Eos % (Auto) 0.0, Baso % (Auto) 0.3, Absolute Neuts (auto) 14.6 H, Absolute Lymphs (auto) 1.88, Nucleated RBC % 0 07/28/22 11:45: Sodium 139, Potassium 3.6, Chloride 106, Carbon Dioxide 28.0, Anion Gap 5, BUN 13, Creatinine 0.94, Estim Creat Clear Calc 60.34, Est GFR (MDRD) Af Amer 78, Est GFR (MDRD) Non-Af 64, BUN/Creatinine Ratio 13.9, Glucose 130 H, Calcium 9.5 07/28/22 12:00: Urine Color Yellow, Urine Clarity Sl. Cloudy, Urine pH 6.5, Ur Specific [place] 1.010, Urine Protein 15 H, Urine Glucose (UA) Normal, Urine Ketones Negative, Urine Occult Blood Negative, Urine Nitrite Negative, Urine Bilirubin Negative, Urine Urobilinogen Normal, Ur Leukocyte Esterase 25 H, Urine RBC 0 SEEN, Urine WBC 0-5 SEEN, Ur Squamous Epith Cells 0 SEEN, Urine Bacteria 0 SEEN, Urine Mucus 0 SEEN Radiology Impression Abdomen/Pelvis CT 07/28/22 11:34 IMPRESSION: Status post cholecystectomy and hysterectomy. 1.1 cm slightly irregular nodular density is seen in the anterior aspect of the left lower lobe adjacent to the left minor fissure. Scattered sigmoid diverticula. Findings suggest a mild degree inflammatory changes in the mesentery surrounding the sigmoid colon. Electronically Signed: Jaden Steele MD at 13:10 EST , Foot X-Ray 07/28/22 12:32 IMPRESSION: Degenerative changes. Calcaneal spurs. Electronically Signed: Jaden Steele MD at 13:12 EST , Assessment & Plan Assessment/Plan (1) Acute diverticulitis: PLAN: Plan #Acute sigmoid diverticulitis * admit to med surg * keep NPO * hydrate with IVF * started on IV zosyn, will continue * IV morphine prn for pain * if pain worsens, will consult general surgery. If she improves quickly, then she can follow up with general surgery on outpatient basis for colonoscopy. * wbc is 17.6; will monitor and trend. * #TYpe 2 diabetes mellitus: hold trulicity. ISS. Accuchecks 16hrly whilst NPO #Hypothyroidism; on synthroid #History of seizures: on keppra #DVT prophylaxis: SCDs, as she is having rectal bleeding Code status: full code * Patient counseled extensively about different types of CODE STATUS including full code, DNR CCA and DNR CCA. Patient elects to be full code. * Total [id number] time 16 minutes. Charges/Coding Visit Charges Inpatient E&M: 38998 Init Hosp L3 Procedures Hospitalists Procedures: 16484 Advncd Care Plan 30 Min
--- NOTE | 2022-07-28 14:05 | NURSING ---
DR PALACIOS FOR DR REAL
--- NOTE | 2022-07-28 14:15 | NURSING ---
MED SURG DIVERTICULITIS KOR
[2022-07-28 14:25] VITALS: BP 151/82; PULSE 70; RESP 18; TEMP 36.6; O2SAT 100
[2022-07-28 15:11] VITALS: BMI 32.7
[2022-07-28 15:13] VITALS: BP 141/72; PULSE 67; RESP 18; TEMP 36.6; O2SAT 100
[2022-07-28] MEDS: Morphine 2 MG/ML Syringe IV (15:24)
[2022-07-28] MEDS: 0.9% Saline Lock 10 ML Syringe IV (15:31)
[2022-07-28] MEDS: 0.9% Normal Saline 1,000 ML 125 ML IV ×2 (15:31→21:36)
[2022-07-28 17:30] LABS: Bedside Glucose 80 mg/dL (74-106)
[2022-07-28 21:24] VITALS: BP 120/67; PULSE 88; RESP 16; TEMP 36.5; O2SAT 95
[2022-07-28] MEDS: levETIRAcetam 500 MG Tablet PO (21:47)
[2022-07-28] MEDS: Topiramate 100 MG Tablet PO (21:47)
[2022-07-28 23:31] LABS: Bedside Glucose 94 mg/dL (74-106)
[2022-07-29 00:40] LABS: Bedside Glucose 104 mg/dL (74-106)
[2022-07-29 04:41] VITALS: BP 107/59; PULSE 93; RESP 18; TEMP 36.5; O2SAT 95
[2022-07-29] MEDS: 0.9% Saline Lock 10 ML Syringe IV (06:07)
[2022-07-29] MEDS: Morphine 2 MG/ML Syringe IV (06:08)
[2022-07-29] MEDS: Levothyroxine 100 MCG Tablet PO (06:15)
[2022-07-29 07:00] LABS: Absolute Lymphocyte Count 2.12 X10^3/uL (0.83-4.51); Basophil# 0.03 X10^3/uL; Basophil% 0.3 % (0-1); Hematocrit 39.4 % (37-47); Hemoglobin 12.9 g/dL (12.0-15.0); Lymphocyte # 2.12 X10^3/ul (0.83-4.51); Lymphocyte % 17.8 % (19-41); Mean Corp Hgb Conc 32.7 g/dL (32-36); Mean Corpuscular Hgb 29.6 pg (27.0-32.0); Mean Corpuscular Volume 90.4 fL (81-99); Mean Platelet Vol. 9.3 fl (6.2-12.0); Monocyte# 0.68 X10^3/uL; Monocyte% 5.7 % (0-10); NRBC Flagged by Analyzer 0 % (0-5); Neutrophil # 9.03 X10^3/uL (2.7-7.7); Neutrophil % 75.8 % (47-70); Platelet Count 170 K/mm3 (150-450); RBC Distribution Width CV 13.2 % (11.6-14.6); Red Blood Count 4.36 M/mm3 (4.2-5.4); White Blood Count 11.9 K/mm3 (4.4-11.0)
[2022-07-29 07:05] LABS: Bedside Glucose 97 mg/dL (74-106)
[2022-07-29 07:34] LABS: Anion Gap 6 (5-15); BUN 12 mg/dL (7-18); BUN/Creat Ratio 14.2 RATIO (10-20); Calcium,Total 8.3 mg/dL (8.5-10.1); Chloride 114 mmol/L (98-107); Creatinine, Serum 0.84 mg/dL (0.55-1.02); EST Glomerular Filtration Rate 73 mL/min (>60); Est Glom Filt Rate - Afr Amer 88 mL/min (>60); Estimated Creatinine Clearance 67.53 ml/min; Glucose 100 mg/dL (74-106); Potassium 3.4 mmol/L (3.5-5.1); Sodium Level 145 mmol/L (136-145)
--- NOTE | 2022-07-29 07:34 | PN.HOSP_ITS ---
Subjective Subjective Ms. English is a 62-year-old white female who presented to emergency department on 07/28/2022 complaining of abdominal pain that started the night prior to presentation. She had associated nausea but denied fever, chills, cough, chest pain, palpitations, dizziness, vomiting or diarrhea. She also complained of some associated bright red blood per rectum. She was hemodynamically stable upon presentation and had a hemoglobin of 14.7. CT of the abdomen and pelvis showed scattered sigmoid diverticula with findings suggestive of a mild degree of inflammatory changes in the sigmoid colon suggestive of acute diverticulitis. Patient states she feels a little bit better however still with significant abdominal tenderness. Requiring IV pain medication. Leukocytosis has improved. Patient states she has no history of this previously. Objective Data Objective Data Vital Signs: Vital Signs Temp Pulse Resp BP Pulse Ox O2 Del Method 97.7 F L 93 18 107/59 L 95 Room Air 07/29/22 04:41 07/29/22 04:41 07/29/22 04:41 07/29/22 04:41 07/29/22 04:41 07/29/22 04:41 Oxygen Delivery Method Room Air Weight: 94.7 kg Body Mass Index (BMI) 32.7 Intake & Output: Intake and Output for Last 24 Hours 07/27/22 07/28/22 07/29/22 23:59 23:59 23:59 Intake Total 1861.92 / 1861.92 1094.25 / 1094.25 Balance 1861.92 / 1861.92 1094.25 / 1094.25 Lab / Micro Data Result Diagrams: 07/29/22 12:12 07/29/22 06:40 Labs: Laboratory Results - last 24 hr 07/28/22 11:45: WBC 17.6 H, RBC 5.10, Hgb 14.7, Hct 45.6, MCV 89.4, MCH 28.8, MCHC 32.2, RDW Std Deviation 41.8, RDW Coeff of Andrew 13.0, Plt Count 228, MPV 9.5, Immature Gran % (Auto) 0.600, Neut % (Auto) 82.9 H, Lymph % (Auto) 10.7 L, [place] % (Auto) 5.5, Eos % (Auto) 0.0, Baso % (Auto) 0.3, Absolute Neuts (auto) 14.6 H, Absolute Lymphs (auto) 1.88, Nucleated RBC % 0 07/28/22 11:45: Sodium 139, Potassium 3.6, Chloride 106, Carbon Dioxide 28.0, Anion Gap 5, BUN 13, Creatinine 0.94, Estim Creat Clear Calc 60.34, Est GFR (MDRD) Af Amer 78, Est GFR (MDRD) Non-Af 64, BUN/Creatinine Ratio 13.9, Glucose 130 H, Calcium 9.5 07/28/22 12:00: Urine Color Yellow, Urine Clarity Sl. Cloudy, Urine pH 6.5, Ur Specific [place] 1.010, Urine Protein 15 H, Urine Glucose (UA) Normal, Urine Ketones Negative, Urine Occult Blood Negative, Urine Nitrite Negative, Urine Bilirubin Negative, Urine Urobilinogen Normal, Ur Leukocyte Esterase 25 H, Urine RBC 0 SEEN, Urine WBC 0-5 SEEN, Ur Squamous Epith Cells 0 SEEN, Urine Bacteria 0 SEEN, Urine Mucus 0 SEEN 07/28/22 17:13: POC Glucose 80 07/28/22 21:27: POC Glucose 94 07/29/22 00:21: POC Glucose 104 07/29/22 06:05: POC Glucose 97 07/29/22 06:40: WBC 11.9 H, RBC 4.36, Hgb 12.9, Hct 39.4, MCV 90.4, MCH 29.6, MCHC 32.7, RDW Std Deviation 43.0, RDW Coeff of Andrew 13.2, Plt Count 170, MPV 9.3, Immature Gran % (Auto) 0.400, Neut % (Auto) 75.8 H, Lymph % (Auto) 17.8 L, [place] % (Auto) 5.7, Eos % (Auto) 0.0, Baso % (Auto) 0.3, Absolute Neuts (auto) 9 .0 H, Absolute Lymphs (auto) 2.12, Nucleated RBC % 0 07/29/22 06:40: Sodium 145, Potassium 3.4 L, Chloride 114 H, Carbon Dioxide 25.0, Anion Gap 6, BUN 12, Creatinine 0.84, Estim Creat Clear Calc 67.53, Est GFR (MDRD) Af Amer 88, Est GFR (MDRD) Non-Af 73, BUN/Creatinine Ratio 14.2, Glucose 100, Calcium 8.3 L Radiography Diagnostic Testing: Radiology Impression Abdomen/Pelvis CT 07/28/22 11:34 IMPRESSION: Status post cholecystectomy and hysterectomy. 1.1 cm slightly irregular nodular density is seen in the anterior aspect of the left lower lobe adjacent to the left minor fissure. Scattered sigmoid diverticula. Findings suggest a mild degree inflammatory changes in the mesentery surrounding the sigmoid colon. Electronically Signed: Jaden Steele MD at 13:10 EST , Foot X-Ray 07/28/22 12:32 IMPRESSION: Degenerative changes. Calcaneal spurs. Electronically Signed: Jaden Steele MD at 13:12 EST , Physical Exam Const alert and oriented x3 Constitutional Narrative: Upper middle-aged white female sitting up in bed, appears nontoxic but somewhat uncomfortable, asks for ice chips as her mouth is dry HEENT head/scalp atraumatic and moist oral mucous membranes HEENT Narrative: Mallampati 3, no thrush Head and Scalp: normocephalic Resp normal respiratory effort, no retractions, no use of accessory muscles and clear to auscultation bilaterally Auscultation: Negative for crackles, rhonchi or wheezes Cardio regular rate, regular rhythm, S1 normal heart sound, S2 normal heart sound, no murmurs, no rub, no gallops and no clicks GI GI Narrative: Tenderness bilateral lower quadrants left greater than right, bowel sounds are hypoactive, abdomen is soft and nondistended Palpation: tender Extremity no clubbing, cyanosis or edema Extremity Narrative: 2+ pedal pulses Neuro oriented x3, moves all extremities and no focal motor deficits Speech: speech normal Psych affect normal Psych Narrative: Very pleasant, appropriately interactive Assessment & Plan Assessment/Plan (1) Acute diverticulitis: (2) Acute lower gastrointestinal bleeding: (3) Leukocytosis: (4) Hypokalemia: PLAN: Plan Acute sigmoid diverticulitis -Continue IV Zosyn -N.p.o. this pain is only minimally improved -Start IV fluids with LR at 75 cc/h -Continue antiemetics -Will need outpatient follow-up with either gastroenterology or general surgery for colonoscopy in the future -Leukocytosis is improving down to 11.9 from 17.6 -Continue as needed IV pain medication Reported hematochezia -No episodes here at this time -Hemoglobin with slight drop however patient did receive a liter of IV fluids -Hemoglobin currently 12.9 -Repeat hemoglobin at noon for stability -If remains stable no further intervention at this time... If drops will consider involvement of gastroenterology Hypokalemia -40 mill equivalents p.o. potassium replacement -Recheck BMP in a.m. -Check a.m. magnesium level DM-2 -Hold home Trulicity -Continue insulin as ordered every 6 hours with change to 3 times daily if diet initiated -Continue Accu-Cheks as ordered GERD -Start home Protonix Hypothyroidism -Continue home levothyroxine History of seizures -Continue home Topamax -Continue home Keppra Depression -Continue home DVT prophylaxis -Continue SCDs for now -Hold chemoprophylaxis with question of hematochezia and if hemoglobin is stable will initiate subcu Lovenox later today CODE STATUS Full code Charges/Coding Visit Charges Inpatient E&M: 36515 Subs Hosp L2
[2022-07-29] MEDS: Lactated Ringers 1,000 ML 75 ML IV ×2 (08:01→20:43)
[2022-07-29] MEDS: Potassium Chloride Oral Tablet 20 MEQ 40 MEQ PO (08:04)
[2022-07-29] MEDS: DULoxetine Hcl 60 MG Capsule PO (08:05)
[2022-07-29] MEDS: Topiramate 100 MG Tablet PO ×2 (08:05→22:49)
[2022-07-29] MEDS: levETIRAcetam 500 MG Tablet PO ×2 (08:05→22:50)
[2022-07-29 10:50] VITALS: BP 103/53; PULSE 82; RESP 18; TEMP 36.6; O2SAT 98
--- NOTE | 2022-07-29 11:47 | CASEMGMT ---
REBECCA VINCENT Assessment: Face to Face with pt for initial transition planning/care coordination assessment. RN MELISA introduced self and role at [facility], pt voices understanding and consents to assessment. Pt is A/O x4 and answers all questions appropriately at this time. Pt sitting up in chair in no distress. Care providers, pharmacy, and demographics verified/updated. Admitting Dx:acute diverticulitis PCP:David Specialists:amy Harrell Preferred Pharmacy: [facility] Keisha Insurance: [facility]Flo [facility] Prescription Benefit: yes LNOK: Bear English, ; Nichelle English, dil Living Arrangements: Pt lives with , son, dil and grandson in a [place] with 10 steps to enter with a rail. Pt reports she is typically I in ADL's and denies concerns at home. Transportation: Pt drives self and denies concerns with transportation. DME/HHC/SNF: Pt has a bath chair and cane at home. Sometimes pt uses the cane outside. Pt denies hx of HHC or SNF stays. Pt states no concerns with going home at time of dc. Pt states no further concerns/needs. CM to follow. Advised pt to ask CM if any further question/concerns/needs arise, voices understanding. Pt Goal: Home Plan: Home
[2022-07-29 12:23] LABS: Hemoglobin 12.5 g/dL (12.0-15.0)
[2022-07-29 12:45] LABS: Bedside Glucose 93 mg/dL (74-106)
[2022-07-29 15:45] VITALS: BP 128/66; PULSE 86; RESP 18; TEMP 36.6; O2SAT 97
[2022-07-29 21:45] VITALS: BP 104/63; PULSE 79; RESP 16; TEMP 36.7; O2SAT 97
[2022-07-29 22:30] LABS: Bedside Glucose 90 mg/dL (74-106)
[2022-07-30] MEDS: 0.9% Saline Lock 10 ML Syringe IV ×2 (00:13→14:47)
[2022-07-30] MEDS: Morphine 2 MG/ML Syringe IV (00:13)
[2022-07-30 02:47] LABS: Bedside Glucose 80 mg/dL (74-106)
[2022-07-30 03:30] VITALS: BP 105/63; PULSE 77; RESP 16; TEMP 36.6; O2SAT 96
[2022-07-30] MEDS: Levothyroxine 100 MCG Tablet PO (06:32)
[2022-07-30 06:48] LABS: Absolute Lymphocyte Count 2.05 X10^3/uL (0.83-4.51); Basophil# 0.05 X10^3/uL; Basophil% 0.5 % (0-1); Hematocrit 38.5 % (37-47); Hemoglobin 12.1 g/dL (12.0-15.0); Lymphocyte # 2.05 X10^3/ul (0.83-4.51); Lymphocyte % 21.2 % (19-41); Mean Corp Hgb Conc 31.4 g/dL (32-36); Mean Corpuscular Hgb 28.4 pg (27.0-32.0); Mean Corpuscular Volume 90.4 fL (81-99); Mean Platelet Vol. 9.7 fl (6.2-12.0); Monocyte# 0.53 X10^3/uL; Monocyte% 5.5 % (0-10); NRBC Flagged by Analyzer 0 % (0-5); Neutrophil # 6.98 X10^3/uL (2.7-7.7); Neutrophil % 72.4 % (47-70); Platelet Count 155 K/mm3 (150-450); Red Blood Count 4.26 M/mm3 (4.2-5.4); White Blood Count 9.7 K/mm3 (4.4-11.0)
[2022-07-30 06:55] LABS: Bedside Glucose 72 mg/dL (74-106)
[2022-07-30 07:19] LABS: Anion Gap 6 (5-15); BUN 10 mg/dL (7-18); BUN/Creat Ratio 12.9 RATIO (10-20); Calcium,Total 8.6 mg/dL (8.5-10.1); Chloride 110 mmol/L (98-107); Creatinine, Serum 0.78 mg/dL (0.55-1.02); EST Glomerular Filtration Rate 80 mL/min (>60); Est Glom Filt Rate - Afr Amer 97 mL/min (>60); Estimated Creatinine Clearance 72.72 ml/min; Glucose 77 mg/dL (74-106); Phosphorus 3.2 mg/dL (2.5-4.9); Potassium 3.5 mmol/L (3.5-5.1); Sodium Level 142 mmol/L (136-145)
[2022-07-30 07:39] VITALS: BP 102/56; PULSE 76; RESP 16; TEMP 36.5; O2SAT 95
[2022-07-30] MEDS: Topiramate 100 MG Tablet PO ×2 (09:22→22:03)
[2022-07-30] MEDS: DULoxetine Hcl 60 MG Capsule PO (09:22)
[2022-07-30] MEDS: levETIRAcetam 500 MG Tablet PO ×2 (09:22→22:03)
[2022-07-30] MEDS: Lactated Ringers 1,000 ML 75 ML IV (09:27)
[2022-07-30 11:51] LABS: Bedside Glucose 100 mg/dL (74-106)
[2022-07-30 13:35] VITALS: BP 121/72; PULSE 75; RESP 16; TEMP 36.8; O2SAT 95
--- NOTE | 2022-07-30 14:27 | PCM.PN.HOSP ---
Subjective Subjective Abdomen is cloth bleaching range tender but feeling better. No nausea. Patient passing flatus. Bowel movement today with no blood. Hemoglobin remained stable. No pain medicine since late last evening. Patient indicated she would like to try some clear liquids today. Objective Data Objective Data Vital Signs: Vital Signs Temp Pulse Resp BP Pulse Ox O2 Del Method 98.3 F 75 16 121/72 H 95 Room Air 07/30/22 13:35 07/30/22 13:35 07/30/22 13:35 07/30/22 13:35 07/30/22 13:35 07/30/22 13:35 Oxygen Delivery Method Room Air Weight: 94.7 kg Body Mass Index (BMI) 32.7 Intake & Output: Intake and Output for Last 24 Hours 07/28/22 07/29/22 07/30/22 23:59 23:59 23:59 Intake Total 1861.92 / 1861.92 2216.75 / 2216.75 1005 / 1005 Balance 1861.92 / 1861.92 2216.75 / 2216.75 1005 / 1005 Lab / Micro Data Result Diagrams: 07/30/22 05:58 07/30/22 05:58 Labs: Laboratory Results - last 24 hr 07/29/22 18:49: POC Glucose 90 07/30/22 00:11: POC Glucose 80 07/30/22 05:58: WBC 9.7, RBC 4.26, Hgb 12.1, Hct 38.5, MCV 90.4, MCH 28.4, MCHC 31.4 L, RDW Std Deviation 42.0, RDW Coeff of Andrew 13.0, Plt Count 155, MPV 9.7, Immature Gran % (Auto) 0.400, Neut % (Auto) 72.4 H, Lymph % (Auto) 21.2, [place] % (Auto) 5.5, Eos % (Auto) 0.0, Baso % (Auto) 0.5, Absolute Neuts (auto) 7.0, Absolute Lymphs (auto) 2.05, Nucleated RBC % 0 07/30/22 05:58: Sodium 142, Potassium 3.5, Chloride 110 H, Carbon Dioxide 26.0, Anion Gap 6, BUN 10, Creatinine 0.78, Estim Creat Clear Calc 72.72, Est GFR (MDRD) Af Amer 97, Est GFR (MDRD) Non-Af 80, BUN/Creatinine Ratio 12.9, Glucose 77, Calcium 8.6, Phosphorus 3.2, Magnesium 2.0 07/30/22 06:34: POC Glucose 72 L 07/30/22 11:26: POC Glucose 100 Physical Exam Const alert, oriented x3 and no apparent distress Constitutional Narrative: Upper middle-aged white female sitting up in bed, appears nontoxic and sleepy but comfortable at this time General Appearance: cooperative HEENT normocephalic, head/scalp atraumatic, hearing grossly normal bilaterally and moist oral mucous membranes Resp normal respiratory effort, no retractions, no use of accessory muscles and clear to auscultation bilaterally Auscultation: Negative for crackles, rhonchi or wheezes Cardio regular rate, regular rhythm, S1 normal heart sound, S2 normal heart sound, no murmurs, no rub, no gallops and no clicks GI normal to inspection, nondistended, normoactive bowel sounds and non-distended GI Narrative: Tenderness bilateral lower quadrants left greater than right--> improved since yesterday however, bowel sounds normoactive, abdomen is soft and nondistended Palpation: tender Extremity normal to inspection, full ROM and no clubbing, cyanosis or edema Extremity Narrative: 2+ pedal pulses Neuro oriented x3, moves all extremities and no focal motor deficits Motor Exam: strength 5/5 throughout Psych affect normal Psych Narrative: Very pleasant, appropriately interactive Assessment & Plan Assessment/Plan (1) Acute diverticulitis: (2) Acute lower gastrointestinal bleeding: (3) Leukocytosis: (4) Hypokalemia: PLAN: Plan Acute sigmoid diverticulitis -Continue IV Zosyn -We will start clear liquid diet and advance as tolerated -Stop IV fluids if patient tolerates p.o. diet -Need for pain medications has decreased -Continue antiemetics -Will need outpatient follow-up with either gastroenterology or general surgery for colonoscopy in the future -Leukocytosis has resolved -Continue as needed IV pain medication Reported hematochezia -No further episodes -Hemoglobin currently 12.1 -Recommend outpatient follow-up with gastroenterology for colonoscopy in the future probably in 3 months unless acute bleeding recurs Hypokalemia - resolved DM-2 -Hold home Trulicity -Continue sliding scale but convert to 3 times daily with diet initiation -Continue Accu-Cheks as ordered GERD -Continue home Protonix Hypothyroidism -Continue home levothyroxine History of seizures -Continue home Topamax -Continue home Keppra Depression -Continue home duloxetine DVT prophylaxis -Continue SCDs for now -Start subcu Lovenox CODE STATUS Full code Charges/Coding Visit Charges Inpatient E&M: 54292 Subs Hosp L2
[2022-07-30 17:27] VITALS: BP 118/74; PULSE 75; RESP 18; TEMP 36.8; O2SAT 95
[2022-07-30 17:40] LABS: Bedside Glucose 89 mg/dL (74-106)
[2022-07-30 21:45] VITALS: BP 111/70; PULSE 78; RESP 16; TEMP 36.8; O2SAT 96
[2022-07-31 05:00] VITALS: BP 120/69; PULSE 71; RESP 16; TEMP 37; O2SAT 95
[2022-07-31] MEDS: Levothyroxine 100 MCG Tablet PO (05:15)
[2022-07-31 06:45] LABS: Bedside Glucose 92 mg/dL (74-106)
[2022-07-31 06:54] LABS: Absolute Lymphocyte Count 1.98 X10^3/uL (0.83-4.51); Absolute Neutrophil Count 5.6 X10^3/uL (2.0-7.7); Basophil# 0.04 X10^3/uL; Basophil% 0.5 % (0-1); Hemoglobin 11.8 g/dL (12.0-15.0); Lymphocyte # 1.98 X10^3/ul (0.83-4.51); Lymphocyte % 24.5 % (19-41); Mean Corp Hgb Conc 31.9 g/dL (32-36); Mean Corpuscular Hgb 28.5 pg (27.0-32.0); Mean Corpuscular Volume 89.4 fL (81-99); Mean Platelet Vol. 9.7 fl (6.2-12.0); Monocyte# 0.45 X10^3/uL; Monocyte% 5.6 % (0-10); NRBC Flagged by Analyzer 0 % (0-5); Neutrophil # 5.57 X10^3/uL (2.7-7.7); Platelet Count 165 K/mm3 (150-450); Red Blood Count 4.14 M/mm3 (4.2-5.4); White Blood Count 8.1 K/mm3 (4.4-11.0)
[2022-07-31 09:08] VITALS: BP 118/64; PULSE 73; RESP 18; TEMP 37.1; O2SAT 96
[2022-07-31] MEDS: levETIRAcetam 500 MG Tablet PO (09:11)
[2022-07-31] MEDS: Topiramate 100 MG Tablet PO (09:12)
[2022-07-31] MEDS: DULoxetine Hcl 60 MG Capsule PO (09:12)
[2022-07-31] MEDS: Enoxaparin 40 MG/0.4 ML Syringe SC (09:15)
--- NOTE | 2022-07-31 10:48 | CASEMGMT ---
No therapy recommended for pt. Plan for pt to dc today. Pt denies any homegoing needs.
--- NOTE | 2022-07-31 13:23 | PCM.DC.SUM ---
Providers Date of Admission: 07/28/22 Date of Discharge: 07/31/22 Primary Care Physician: Dr. Juwan Hernandez MD Reason For Visit: ACUTE DIVERTICULITIS Diagnosis Discharge Diagnosis (1) Acute diverticulitis: Status: Acute Code(s): K57.92 - Diverticulitis of intestine, part unspecified, without perforation or abscess without bleeding (2) Acute lower gastrointestinal bleeding: Status: Acute Code(s): K92.2 - Gastrointestinal hemorrhage, unspecified (3) Leukocytosis: Status: Acute Code(s): D72.829 - Elevated white blood cell count, unspecified (4) Hypokalemia: Status: Acute Code(s): E87.6 - Hypokalemia Medications at Discharge Home Medications cholecalciferol (vitamin D3) 25 mcg (1,000 unit) tablet (Vitamin D3) 1,000 unit PO DAILY 03/13/16 cyclobenzaprine 10 mg tablet 5 mg PO QHS PRN Pain 03/13/16 levothyroxine 125 mcg tablet 100 mcg PO DAILY 03/13/16 cwzzhena-abd-SR 200 mcg-vit K 15 mcg-lycope 150 nel-sebmvr-urxd tablet (Ocuvite Eye Plus Multi) 1 ea PO DAILY 03/13/16 duloxetine 60 mg capsule,delayed release 1 capsule PO DAILY 10/24/16 acetaminophen 500 mg tablet 500 mg PO Q6H PRN PRN Pain 02/14/17 melatonin 10 mg tablet 10 mg PO QHS PRN Insomnia 02/14/17 topiramate 100 mg tablet 100 mg PO BID 02/14/17 dulaglutide 1.5 mg/0.5 mL subcutaneous pen injector (Trulicity) 1.5 mg subcut TH 07/28/22 levetiracetam 500 mg tablet 500 mg PO BID 07/28/22 pantoprazole 40 mg tablet,delayed release 40 mg PO DAILY 07/28/22 amoxicillin 875 mg-potassium clavulanate 125 mg tablet 1 tab PO TID #21 tabs 07/31/22 Hospital Course Procedures - (CT abdomen and pelvis) Summary of Care Provided Minutes Spent on Discharge: 36 Hospital Course: Mrs. English is a 62-year-old white female who came to the emergency department on 07/28/2021 complaining abdominal pain. She indicated that the pain started the night prior to admission and she had associated nausea. She also complained of some associated rectal bleeding. At presentation her vital signs are unremarkable but she did have a leukocytosis with a white count of 17.6. Her hemoglobin was 14.7 however she appeared somewhat dehydrated and her platelets were normal. CT of the abdomen pelvis showed scattered sigmoid diverticuli and findings suggestive of mild degree of inflammatory changes in the mesentery surrounding the sigmoid colon suggestive of acute sigmoid diverticulitis. The patient was placed on Zosyn, made n.p.o., aggressively hydrated and placed on IV pain medication. We are able to start a clear liquid diet on the morning of 07/30/2022 and this was advanced to full liquids by the evening. On the a.m. of 07/31/2022 the patient indicated she was feeling much better. She had some minimal abdominal cramping that seems to be much improved. She had not required any pain medication in approximately 24 hours. She also reported that any bleeding she had with her stool had resolved. She did have a slight drop in her hemoglobin however bright red blood per rectum had resolved and she was markedly positive in her fluid status for her hospital course. She felt well enough to go home on 07/31/2022 and was tolerating regular food. We will discharge her with Augmentin 875 mg 3 times daily for another 7 days to cover her diverticulitis. I have given her referral to Dr. Marques from gastroenterology to obtain an outpatient colonoscopy. This will need to be done after approximately 3 months with her recent episode of diverticulitis. She denied the need for any pain medication at the time of discharge. She is to follow-up with her primary care physician within the 1 to 2 weeks and come back to the emergency department if she has any new rectal bleeding. Discharge diagnoses: Acute sigmoid diverticulitis Hematochezia-resolved Hypokalemia-resolved DM-2 GERD Hypothyroidism History of seizures Depression Physical Exam Const alert, oriented x3 and no apparent distress Constitutional Narrative: Upper middle-aged white female lying in bed, sleeping at the time of my arrival however awakens easily and is appropriate and alert when she is awake General Appearance: cooperative, comfortable, well kempt and well developed Orientation / Consciousness: awake, oriented to person, oriented to place and oriented to time Exam Limitations: no limitations HEENT normocephalic, head/scalp atraumatic, hearing grossly normal bilaterally and moist oral mucous membranes Eyes PERRL, EOMs intact bilaterally and conjunctivae normal Neck no lymphadenopathy and supple Resp normal respiratory effort, no retractions, no use of accessory muscles and clear to auscultation bilaterally Auscultation: Negative for crackles, rhonchi or wheezes Cardio regular rate, regular rhythm, S1 normal heart sound, S2 normal heart sound, no murmurs, no rub, no gallops and no clicks GI normal to inspection, nondistended, normoactive bowel sounds, soft to palpation and non-distended GI Narrative: Very minimal tenderness in bilateral lower quadrants of the abdomen with marked improvement since admission Palpation: tender Extremity normal to inspection, full ROM and no clubbing, cyanosis or edema Extremity Narrative: 2+ pedal pulses Skin no rashes or lesions noted, no wounds, skin turgor normal and no jaundice Neuro oriented x3, CN's II-XII intact bilaterally, moves all extremities and no focal motor deficits Sensorium / Orientation: awake, alert, oriented to person, oriented to place and oriented to time Speech: speech normal Psych affect normal Psych Narrative: Very pleasant, appropriately interactive Weight / BMI Weight Weight: 94.7 kg Body Mass Index (BMI) 32.7 ABG / Lab / Microbiology Data Result Diagrams: 07/31/22 06:15 07/30/22 05:58 Laboratory: Laboratory Results - last 24 hr 07/30/22 17:17: POC Glucose 89 07/31/22 06:15: WBC 8.1, RBC 4.14 L, Hgb 11.8 L, Hct 37.0, MCV 89.4, MCH 28.5, MCHC 31.9 L, RDW Std Deviation 42.0, RDW Coeff of Andrew 13.0, Plt Count 165, MPV 9.7, Immature Gran % (Auto) 0.400, Neut % (Auto) 69.0, Lymph % (Auto) 24.5, [place] % (Auto) 5.6, Eos % (Auto) 0.0, Baso % (Auto) 0.5, Absolute Neuts (auto) 5.6, Absolute Lymphs (auto) 1.98, Nucleated RBC % 0 07/31/22 06:23: POC Glucose 92 D/C Instructions Discharge Diet: 1800 Calorie Control Diet Discharge Activity: Return to Normal Activity Return to work on: 01/30/23 Meaningful Use Info Meaningful Use Diagnoses (Choose all that apply): None applicable Discharge Plan Admission Admit Date/Time: 07/28/22 14:12 Primary Reason for Your Visit: Abdominal pain Attending Provider: Anais Deras Primary Care Provider: Juwan Hernandez [employer] Providers: Nell Laguna Instructions Patient Instructions: Diverticulosis and Diverticulitis, Diverticulitis Dc Discharge Orders/Prescriptions Prescriptions: New amoxicillin-pot clavulanate 875-125 mg tablet 1 tab PO TID Qty: 21 0RF Continued cyclobenzaprine 10 MG tablet 5 mg PO QHS PRN (Reason: Pain) levothyroxine 125 MCG tablet 100 mcg PO DAILY cholecalciferol (vitamin D3) [Vitamin D3] 1,000 UNIT tablet 1,000 unit PO DAILY Ocuvite Eye Plus Multi 1 EACH tablet 1 ea PO DAILY duloxetine 60 MG capsule,delayed release(DR/EC) 1 capsule PO DAILY acetaminophen 500 MG tablet 500 mg PO Q6H PRN PRN (Reason: Pain) topiramate 100 MG tablet 100 mg PO BID melatonin 10 MG tablet 10 mg PO QHS PRN (Reason: Insomnia) levetiracetam 500 mg tablet 500 mg PO BID pantoprazole 40 mg tablet,delayed release (DR/EC) 40 mg PO DAILY Trulicity 1.5 mg/0.5 mL pen injector 1.5 mg SUBCUT TH Referrals / Follow Up: Josue Marques DO [Med Staff - Active Staff] - Within 3 Months (for colonoscopy and diverticulitis--call Thursday to make appt) Juwan Hernandez Chi, MD [Primary Care Provider] - Within 2 Weeks Disposition Disposition (needs filled in before D/C Order can be placed): Home, Self Care Charges/Coding Visit Charges Inpatient E&M: 55489 Disch Hosp >30min
[2022-07-31 13:58] VITALS: BP 120/70; PULSE 76; RESP 18; TEMP 36.8; O2SAT 97
== END 2022-07-31 14:35 | disposition home or self-care (01) | DRG 379 ==
LOC: ED 14:09 → MS3 14:24
PROVIDERS: Admitting Provider Student in an Organized Health Care Education/Training Program; Emergency Provider Emergency Medicine; PCP Family Medicine Geriatric Medicine; Visit Provider Internal Medicine
DX: K57.33 Diverticulitis of large intestine without perforation or abscess with bleeding (principal); E03.9 Hypothyroidism, unspecified; E11.9 Type 2 diabetes mellitus without complications; G40.909 Epilepsy, unspecified, not intractable, without status epilepticus; Z79.4 Long term (current) use of insulin; E87.6 Hypokalemia; K21.9 Gastro-esophageal reflux disease without esophagitis; F32.A Depression, unspecified; Z90.49 Acquired absence of other specified parts of digestive tract; Z79.85 Long-term (current) use of injectable non-insulin antidiabetic drugs; Z79.899 Other long term (current) drug therapy
CPT/HCPCS: 36415; 73630; 74176; 80048; 81001; 82962; 83735; 84100; 85018; 85025; 97162; 97166; 99284; J7030; J7050; J7120; A4216; J2405

== ENCOUNTER → 2022-10-21 | Outpatient (CLI) | payer MEDICARE, SELFPAY | END | disposition home or self-care (01) | LOC: PSN 12:48 | PROVIDERS: PCP Family Medicine Geriatric Medicine; Visit Provider Family Medicine Geriatric Medicine | DX: R68.83 Chills (without fever) (principal) | CPT/HCPCS: 87635; 87804; 87807; C9803; U0003; U0005 ==

== ENCOUNTER → 2022-12-03 | Outpatient (CLI) | payer MEDICARE, SELFPAY ==
[2022-12-03 15:31] LABS: Absolute Lymphocyte Count 2.13 X10^3/uL (0.83-4.51); Absolute Neutrophil Count 5.3 X10^3/uL (2.0-7.7); Basophil# 0.04 X10^3/uL; Basophil% 0.5 % (0-1); Eosinophil# 0.01 X10^3/uL; Eosinophils% 0.1 % (0-5); Hematocrit 43.2 % (37-47); Hemoglobin 13.7 g/dL (12.0-15.0); Lymphocyte # 2.13 X10^3/ul (0.83-4.51); Lymphocyte % 26.6 % (19-41); Mean Corp Hgb Conc 31.7 g/dL (32-36); Mean Corpuscular Volume 91.5 fL (81-99); Monocyte# 0.47 X10^3/uL; Monocyte% 5.9 % (0-10); NRBC Flagged by Analyzer 0 % (0-5); Neutrophil # 5.34 X10^3/uL (2.7-7.7); Neutrophil % 66.5 % (47-70); Platelet Count 242 K/mm3 (150-450); RBC Distribution Width CV 12.7 % (11.6-14.6); RBC Distribution Width SD 42.4 fl (35.1-43.9); Red Blood Count 4.72 M/mm3 (4.2-5.4)
[2022-12-03 16:16] LABS: AST(SGOT) 12 U/L (15-37); Alanine Aminotransfer ALT/SGPT 19 U/L (13-56); Albumin, Serum 3.6 g/dL (3.2-5.0); Alkaline Phosphatase 96 U/L (45-117); Anion Gap 6 (5-15); BUN 17 mg/dL (7-18); Calcium,Total 9.2 mg/dL (8.5-10.1); Chloride 105 mmol/L (98-107); Creatinine, Serum 1.06 mg/dL (0.55-1.02); EST Glomerular Filtration Rate 56 mL/min (>60); Est Glom Filt Rate - Afr Amer 68 mL/min (>60); Globulin 3.6 g/dL (2.2-4.2); Glucose 152 mg/dL (74-106); Potassium 3.8 mmol/L (3.5-5.1); Protein, Total 7.2 g/dL (6.4-8.2); Sodium Level 141 mmol/L (136-145); Thyroid Stim Hormone (TSH) 2.24 uIU/mL (0.358-3.74)
== END | disposition home or self-care (01) ==
LOC: POLAB3 13:26
PROVIDERS: PCP Family Medicine Geriatric Medicine; Visit Provider Family Medicine Geriatric Medicine
DX: E11.65 Type 2 diabetes mellitus with hyperglycemia (principal); R53.83 Other fatigue
CPT/HCPCS: 36415; 80053; 84443; 85025

== ENCOUNTER 2023-01-07 05:44 | Day surgery (SDC) | payer MEDICARE, SELFPAY ==
[2023-01-07] VITALS (7 sets, daily range): BP systolic 117–126; BP diastolic 67–85; PULSE 82–89; RESP 16–18; TEMP 36.4–36.7; O2SAT 96–100; BMI 32.8
[2023-01-07] MEDS: Lactated Ringers 1,000 ML 15 ML IV (06:21)
--- NOTE | 2023-01-07 06:53 | HP.PCM_ITS ---
History and Physical Date of Admission: 01/07/23 JOSE GUADALUPE FISHER, is a 62 F who presents to the office today for [facility] hospitalization 07.28.22-07.31.22 where she was treated for acute diverticulitis with abdominal pain, nausea and rectal bleeding. Treated with IVF, pain management and IV antibiotics. Discharged with Augmentin. CT abd/pel 07.28.22 colonic diverticulosis with mild increased marking in mesenteric fat in central pelvis with mild degree of inflammatory changes of sigmoid colon. s/p cholecystectomy and hysterectomy. Irregular nodular density of left lower lung 1.1cm. *BGI established 10.31.22 this was the first episode of diverticulitis. LLQ pain is chronic; BM is constipation with BM weekly with significant straining and sweating, will have to help her with cool rags. MiraLAX used intermittently with ineffectiveness; Dulcolax ineffective; increased dietary fiber with cereal and fruits. Denies current red blood, but continues to have dark/black stools. ROS Const Constitutional: No anorexia, fatigue, fever(s), weight change or sleep problems Eyes Eyes: No change in vision ENT ENT: No abnormal hearing, difficulty swallowing, mouth lesions, tongue swelling or throat swelling Resp Respiratory: No cough or shortness of breath Cardio Cardiology: No chest pain at rest, chest pain with exertion, shortness of breath or dyspnea on exertion Gastro GI: No difficulty swallowing Genitourinary-Female: No difficulty urinating or burning urination Musc Musculoskeletal: No joint pain, joint swelling, muscle weakness or decreased muscle mass Skin Skin: No hair loss in leg, yellowing of the eye, itchy eyes, rash, skin ulcer or skin swelling Neuro Neurology: No abnormal hearing, abnormal movements, confusion, unsteady gait/balance or memory loss Psych Psychiatric: No anxiety, No confusion and No memory loss Endo Endocrine: No fatigue or weight change Aller/Imm Allergy/Immunologic: No itchy eyes, throat swelling or tongue swelling Christopher/Lymp Hematologic/Lymphatic: No easy bleeding, easy bruising or enlarged lymph nodes Exam Const General: cooperative and comfortable Nutritional Appearance: average body habitus and well nourished HENTN Head: normal to inspection Ears: hearing grossly normal bilaterally Nose: external nose normal Face and sinus: normal facial exam Mouth: oral mucosae normal Throat: posterior oropharynx normal Eyes General: appearance normal, both eyes and all related structures Neck Neck: normal visual inspection Chest Chest palpation & inspection: normal inspection of the chest and normal palpation of entire chest wall Resp Effort & Inspection: normal respiratory effort Auscultation: Bilateral: Clear to Auscultation Cardio Palpation: normal PMI Rate: regular rate Rhythm: regular rhythm GI Inspection: normal to inspection Auscultation: normal bowel sounds Percussion: normal to percussion Palpation: no hepatosplenomegaly Skin General: no rashes or lesions noted Neuro General: patient alert Extrem General: normal to inspection Psych Affect: normal affect Quality Reporting Tobacco Screening ([facility] 138) Smoking Status: Never smoker Assessment and Plan Assessment and Plan (1) Diverticulitis: Status: Chronic Plan: ?62-year-old white female who came to the emergency department on 07/28/2021 complaining abdominal pain.? She indicated that the pain started the night prior to admission and she had associated nausea.? She also complained of some associated rectal bleeding.? At presentation her vital signs are unremarkable but she did have a leukocytosis with a white count of 17.6.? Her hemoglobin was 14.7 however she appeared somewhat dehydrated and her platelets were normal.? CT of the abdomen pelvis showed scattered sigmoid di verticuli and findings suggestive of mild degree of inflammatory changes in the mesentery surrounding the sigmoid colon suggestive of acute sigmoid diverticulitis.? The patient was placed on Zosyn, made n.p.o., aggressively hydrated and placed on IV pain medication.? We are able to start a clear liquid diet on the morning of 07/30/2022 and this was advanced to full liquids by the evening.? She had some minimal abdominal cramping that seems to be much improved.? She had not required any pain medication in approximately 24 hours.? She also reported that any bleeding she had with her stool had resolved.? She did have a slight drop in her hemoglobin however bright red blood per rectum had resolved and she was markedly positive in her fluid status for her hospital course.? She felt well enough to go home on 07/31/2022 and was tolerating regular food.? We will discharge her with Augmentin 875 mg 3 times daily for another 7 days to cover her diverticulitis.? We will perform a colonoscopy due to family history of colon cancer and to make sure that the diverticulitis is healed. (2) Constipation: Status: Chronic Qualifiers: Constipation type: unspecified constipation type Qualified Code(s): K59.00 - Constipation, unspecified Plan: We will lactulose for her severe constipation. Medications: New lactulose 10 grams (15 mL) PO BID 946 mL 0RF peg 3350-electrolytes 236-22.74-6.74 -5.86 gram (Golytely) until fecal effluent is clear 240 mL PO Q10M 4,000 mL 0RF I have examined the patient and the H&P has been reviewed. There are no clinical changes since date of exam.
--- NOTE | 2023-01-07 07:00 | COLBX_PTH ---
PATIENT: JOSE GUADALUPE FISHER LOC: EN U#:[id number] AGE/SX: 62/F ROOM: RE01/07/[address]: Dr. Josue Marques DO : 1960 BED: DIS: 01/07/2023 SPEC #: [id number] RECD: 01/07/23 10:13 STATUS: MARTY REMarla #: [id number] BRAXTON: 01/07/23 07:[address]: Josue Marques DEPT: SURGICAL PATHOLOGY RECD BY: Mee Brian ENTERED: 01/07/23 13:03 SP TYPE: COLON BX ABDON DR: Dr. Juwan Hernandez MD Tissues: A - COLON BIOPSY B - COLON BIOPSY Procedures: Surgery Specimen Level IV HEADER OPERATION: Colonoscopy (MAC) with biopsy PRE-OP DIAGNOSIS: Diverticulitis, constipation TISSUE SUBMITTED: A - Hepatic flexure polyp biopsy, B - Appendiceal orifice biopsy MICROSCOPIC DIAGNOSIS A. Hepatic flexure polyp, biopsy: Fragments of tubular adenoma. B. Appendiceal orifice, biopsy: Fragments of colonic mucosa, no pathologic diagnosis. GENIE:eladio 01/08/2023 MICROSCOPIC DESCRIPTION Slides are reviewed. GROSS DESCRIPTION A - Received in fixative is one container labeled with the patient's name and designated hepatic flexure polyp. The specimen consists of multiple irregular fragments of light jett soft tissue that in aggregate measure 0.6 x 0.5 x 0.1 cm. The specimen is totally submitted in one cassette. B - Received in fixative is one container labeled with the patient's name and designated appendiceal orifice biopsy. The specimen consists of multiple irregular fragments of light jett soft tissue that in aggregate measure 0.6 x 0.3 x 0.1 cm. The specimen is totally submitted in one cassette. / GENIE:eladio 01/07/2023 TC:1 CPT: 14444 x2
[2023-01-07 07:02] LABS: Bedside Glucose 137 mg/dL (74-106)
--- NOTE | 2023-01-07 07:42 | OP.COLON_ITS ---
Patient Name: Marie English Procedure Date: 01/07/2023 6:57 AM Date of : 1960 Age: 62 Procedure: Colonoscopy Indications: Abdominal pain in the left lower quadrant Providers: Jouse Marques DO Medicines: Monitored Anesthesia Care Patient Profile: This is a 62 year old female. Refer to note in patient chart for documentation of history and physical. Last Colonoscopy: date unknown. Unable to locate last colonoscopy report. Complications: No immediate complications. Procedure: Pre-Anesthesia Assessment: - Prior to the procedure, a History and Physical was performed, and patient medications and allergies were reviewed. The patient is competent. The risks and benefits of the procedure and the sedation options and risks were discussed with the patient. All questions were answered and informed consent was obtained. Patient identification and proposed procedure were verified by the physician. Mental Status Examination: normal. Prophylactic Antibiotics: The patient does not require prophylactic antibiotics. Prior Anticoagulants: The patient has taken no previous anticoagulant or antiplatelet agents. After reviewing the risks and benefits, the patient was deemed in satisfactory condition to undergo the procedure. The anesthesia plan was to use monitored anesthesia care (MAC). Immediately prior to administration of medications, the patient was re-assessed for adequacy to receive sedatives. The heart rate, respiratory rate, oxygen saturations, blood pressure, adequacy of pulmonary ventilation, and response to care were monitored throughout the procedure. The physical status of the patient was re-assessed after the procedure. After I obtained informed consent, the scope was passed under direct vision. Throughout the procedure, the patient's blood pressure, pulse, and oxygen saturations were monitored continuously. The was introduced through the anus and advanced to the terminal ileum. The colonoscopy was performed without difficulty. The patient tolerated the procedure well. The quality of the bowel preparation was fair. Scope In: 7:05:04 AM Scope Withdrawal Time 0 hours 10 minutes 10 seconds Scope Out: 7:27:29 AM Total Procedure Duration Time 0 hours 22 minutes 25 seconds Findings: The perianal and digital rectal examinations were normal. Two sessile polyps were found in the hepatic flexure. The polyps were 1 to 2 mm in size. These polyps were removed with a cold snare. Resection and retrieval were complete. Verification of patient identification for the specimen was done. Estimated blood loss was minimal. A few small-mouthed diverticula were found in the recto-sigmoid colon. A benign-appearing, intrinsic moderate stenosis measuring 5 cm (in length) was found in the recto-sigmoid colon. An area of moderately congested mucosa was found appendiceal orifice. Biopsies were taken with a cold forceps for histology. Verification of patient identification for the specimen was done. Estimated blood loss was minimal. The terminal ileum appeared normal. Impression: - Preparation of the colon was fair. - Two 1 to 2 mm polyps at the hepatic flexure, removed with a cold snare. Resected and retrieved. - Diverticulosis in the recto-sigmoid colon. - Stricture in the recto-sigmoid colon. - Congested mucosa at the appendiceal orifice. Biopsied. - The examined portion of the ileum was normal. Recommendation: - Discharge patient to home. - Resume previous diet. - Continue present medications. - Await pathology results. - Repeat colonoscopy is recommended. The colonoscopy date will be determined after pathology results from today's exam become available for review. Procedure Code(s): --- Professional --- 64187, Colonoscopy, flexible; with removal of tumor(s), polyp(s), or other lesion(s) by snare technique 57722, 59, Colonoscopy, flexible; with biopsy, single or multiple CPT copyright 2017 [employer]. All rights reserved. The codes documented in this report are preliminary and upon switchboard operator receptionist review may be revised to meet current compliance requirements. Josue Marques DO 01/07/2023 7:41:58 AM This report has been signed electronically. Number of Addenda: 0 Note Initiated On: 01/07/2023 6:57 AM
--- NOTE | 2023-01-07 07:43 | OP.CCLET_ITS ---
01/07/2023 Juwan Hernandez MD [address] [place] [address] Re : Colonoscopy procedure for Marie Amador Dear Dr. Hernandez This procedure was performed on Saturday, January 07, 2023. My impressions and recommendations are as follows: Impressions : - Preparation of the colon was fair. - Two 1 to 2 mm polyps at the hepatic flexure, removed with a cold snare. Resected and retrieved. - Diverticulosis in the recto-sigmoid colon. - Stricture in the recto-sigmoid colon. - Congested mucosa at the appendiceal orifice. Biopsied. - The examined portion of the ileum was normal. Recommendations : - Discharge patient to home. - Resume previous diet. - Continue present medications. - Await pathology results. - Repeat colonoscopy is recommended. The colonoscopy date will be determined after pathology results from today's exam become available for review. My findings are described in the full procedure note, which is enclosed. If I can be of further assistance, please feel free to contact me at . Sincerely, Josue Marques, 01/07/2023 7:41:58 AM This report has been signed electronically.
== END 2023-01-07 08:40 | disposition home or self-care (01) ==
LOC: EN 05:45 → AC 05:46
PROVIDERS: PCP Family Medicine Geriatric Medicine; Referring Provider Family Medicine Geriatric Medicine; Visit Provider Internal Medicine Gastroenterology
PROC: 0DJD8ZZ Inspection of Lower Intestinal Tract, Via Natural or Artificial Opening Endoscopic (ICD-10-PCS; CPT 45378; principal; 2023-01-07 06:55)
DX: D12.3 Benign neoplasm of transverse colon (principal); G35 Multiple sclerosis; K56.609 Unspecified intestinal obstruction, unspecified as to partial versus complete obstruction; G47.30 Sleep apnea, unspecified; K21.9 Gastro-esophageal reflux disease without esophagitis; K57.30 Diverticulosis of large intestine without perforation or abscess without bleeding; Z79.899 Other long term (current) drug therapy
CPT/HCPCS: 45385; 45380; 82962; 88305; J7120; J2405

== ENCOUNTER → 2023-01-14 | Outpatient (CLI) | payer MEDICARE, SELFPAY ==
--- NOTE | 2023-01-14 16:22 | CT_ITS ---
STUDY: CT ABDOMEN AND PELVIS WITHOUT CONTRAST REASON FOR EXAM: Female, 62 years old. RIGHT SIDED AB PAIN, PRIOR HYSTERECTOMY, CHOLECYSTECTOMY RADIATION DOSAGE (If Supplied By Facility): CTDIvol = ( 17.54 ) mGy, DLP = ( 942.02 ) mGycm TECHNIQUE: Transaxial images were obtained from the dome of the diaphragm to the symphysis pubis with oral contrast, and without intravenous contrast. Sagittal and coronal images were reconstructed. Individualized dose optimization techniques were used for this CT. COMPARISON: July 28, 2022 FINDINGS: There is lower lung linear scarring or atelectasis. The visualized portions of the heart are within normal limits. There is hepatomegaly with diffuse hepatic enlargement. There are surgical clips in the gallbladder fossa consistent with a prior cholecystectomy. Normal spleen. Normal pancreas. Normal bilateral adrenal glands. Normal right kidney. Normal left kidney. Normal visualized stomach. Normal small intestine. Normal colon. There is moderate stool. There is a stable tubular, thick-walled appendix (>7mm), consistent with chronic appendicitis. Normal abdominal aorta. Normal inferior vena cava. Normal retroperitoneum. Normal urinary bladder. There is absence of the uterus consistent with a prior hysterectomy. There is no free fluid in the abdomen or pelvis. Normal abdominal wall. Normal osseous structures. CT/Abdomen/Pelvis without Cont IMPRESSION: Stable enlarged appendix suggesting chronic appendicitis. No obstruction or abscess. Hepatomegaly. Prior cholecystectomy. Electronically Signed: Chapin Rehman MD at 18:48 EDT ,
== END | disposition home or self-care (01) ==
LOC: CT 15:49
PROVIDERS: PCP Family Medicine Geriatric Medicine; Referring Provider Surgery; Visit Provider Surgery
DX: R10.9 Unspecified abdominal pain (principal)
CPT/HCPCS: 74176

== ENCOUNTER → 2023-01-15 | Outpatient (CLI) | payer MEDICARE, SELFPAY ==
[2023-01-15 10:49] LABS: Absolute Lymphocyte Count 1.78 X10^3/uL (0.83-4.51); Absolute Neutrophil Count 5.4 X10^3/uL (2.0-7.7); Basophil# 0.05 X10^3/uL; Basophil% 0.6 % (0-1); Hematocrit 42.3 % (37-47); Hemoglobin 13.6 g/dL (12.0-15.0); Lymphocyte # 1.78 X10^3/ul (0.83-4.51); Lymphocyte % 22.8 % (19-41); Mean Corp Hgb Conc 32.2 g/dL (32-36); Mean Corpuscular Hgb 29.2 pg (27.0-32.0); Mean Corpuscular Volume 90.8 fL (81-99); Mean Platelet Vol. 9.4 fl (6.2-12.0); Monocyte# 0.52 X10^3/uL; Monocyte% 6.7 % (0-10); NRBC Flagged by Analyzer 0 % (0-5); Neutrophil # 5.42 X10^3/uL (2.7-7.7); Neutrophil % 69.5 % (47-70); Platelet Count 209 K/mm3 (150-450); RBC Distribution Width CV 12.7 % (11.6-14.6); RBC Distribution Width SD 41.5 fl (35.1-43.9); Red Blood Count 4.66 M/mm3 (4.2-5.4); White Blood Count 7.8 K/mm3 (4.4-11.0)
[2023-01-15 10:52] LABS: Erythrocyte Sedimentation Rate 10 mm/hr (0-30)
[2023-01-15 11:09] LABS: CRP 8.34 mg/L (0.0-3.0)
== END | disposition home or self-care (01) ==
LOC: PAVLAB 10:21
PROVIDERS: PCP Family Medicine Geriatric Medicine; Referring Provider Physician Assistant; Visit Provider Physician Assistant
DX: R93.5 Abnormal findings on diagnostic imaging of other abdominal regions, including retroperitoneum (principal)
CPT/HCPCS: 36415; 85025; 85652; 86140

== ENCOUNTER → 2023-01-21 | Outpatient (CLI) | payer MEDICARE, SELFPAY ==
--- NOTE | 2023-01-21 08:53 | RAD_ITS ---
PROCEDURE: BARIUM ENEMA. REASON FOR EXAM: Female, 62 years old. Abnormal colonoscopy -- gastrografin pls. FLUOROSCOPY TIME (if supplied): (0:52) minutes/seconds TECHNIQUE: After a judicial clerk film on 2 images, a Gastrografin enema was delivered in retrograde fashion via the rectum under fluoroscopic guidance. 7 fluoroscopic spot films and 12 overhead radiographs were obtained. COMPARISON: CT abdomen and pelvis January 14, 2023. FINDINGS: Clay Structure Builder And Servicer film shows a nonspecific bowel gas pattern, including the nondistended gas-filled small bowel loop in the midabdomen. Surgical clips of prior cholecystectomy noted in the right upper quadrant, well additional clips that may reflect prior bilateral tubal ligation noted in the pelvis. Numerous calcified phleboliths are also seen in the pelvic soft tissues. There are some degenerative changes in lower lumbar spine.. The enema flowed without obstruction to the cecum, where the region of the ileocecal juncture was identified. Occasional short segments of narrowing that are likely due to spasm are evident, but a short segment of mild narrowing and borderline mucosal irregularity consistently appears in the very proximal sigmoid colon. No diverticula. Postevacuation film shows significant holdup. RAD/Barium Enema No Air Cont IMPRESSION: Short segment mild narrowing and borderline mucosal irregularity appears fairly consistently in the proximal sigmoid colon, possibly correlating to site of narrowing/stricture identified in that area on colonoscopy. Other than notable holdup on the postevacuation film, the enema is otherwise unremarkable. Electronically Signed: Nick Hogan MD at 10:31 EDT Reading Location ID and State: [id number] / Unknown , Service support ,
[2023-01-21] MEDS: Lidocaine Jelly 2% 20 ML Syringe (URO-JET) 1 APPLIC TOPICAL (09:32)
== END | disposition home or self-care (01) ==
LOC: RAD 08:51
PROVIDERS: PCP Family Medicine Geriatric Medicine; Referring Provider Physician Assistant; Visit Provider Physician Assistant
DX: R93.3 Abnormal findings on diagnostic imaging of other parts of digestive tract (principal)
CPT/HCPCS: 74270

== ENCOUNTER 2023-02-10 09:21 | Day surgery (SDC) | payer MEDICARE, SELFPAY ==
[2023-02-10] VITALS (7 sets, daily range): BP systolic 94–125; BP diastolic 60–77; PULSE 76–84; RESP 16–18; TEMP 36.2–36.7; O2SAT 96–99; BMI 32.8
--- NOTE | 2023-02-10 09:48 | PCM.HP.BLA ---
History and Physical Date of Admission: 02/10/23 Is patient in pain?: No Allergies iodine Allergy (Severe, Verified 02/06/23 08:17) Angioedemaacetaminophen [From Darvocet-N] Adverse Reaction (Verified 02/06/23 08:17) Unknownazathioprine Adverse Reaction (Verified 02/06/23 08:17) Pain in jointsgoldenseal [zuñiga seal] Adverse Reaction (Verified 02/06/23 08:17) Rashmeperidine [From Demerol] Adverse Reaction (Verified 02/06/23 08:17) Nauseapropoxyphene [From Darvocet-N] Adverse Reaction (Verified 02/06/23 08:17) Unknowntea tree Adverse Reaction (Verified 02/06/23 08:17) blister Medications cholecalciferol (vitamin D3) 25 mcg (1,000 unit) tablet (Vitamin D3) 1,000 unit PO DAILY 03/13/16 [History Confirmed 02/06/23] levothyroxine 125 mcg tablet 100 mcg PO DAILY 03/13/16 [History Confirmed 02/06/23] cncjeldp-pcm-FC 200 mcg-vit K 15 mcg-lycope 150 bsh-uecerh-onmq tablet (Ocuvite Eye Plus Multi) 1 ea PO DAILY 03/13/16 [History Confirmed 02/06/23] duloxetine 60 mg capsule,delayed release 1 capsule PO DAILY 10/24/16 [History Confirmed 02/06/23] acetaminophen 500 mg tablet 500 mg PO Q6H PRN PRN Pain 02/14/17 [History Confirmed 02/06/23] melatonin 10 mg tablet 10 mg PO QHS PRN Insomnia 02/14/17 [History Confirmed 02/06/23] topiramate 100 mg tablet 100 mg PO BID 02/14/17 [History Confirmed 02/06/23] dulaglutide 1.5 mg/0.5 mL subcutaneous pen injector (Trulicity) 1.5 mg subcut TH 07/28/22 [History Confirmed 01/23/23] levetiracetam 500 mg tablet 500 mg PO BID 07/28/22 [History Confirmed 02/06/23] pantoprazole 40 mg tablet,delayed release 40 mg PO DAILY 07/28/22 [History Confirmed 02/06/23] coenzyme Q10 100 mg capsule (Co Q-10) 100 mg PO DAILY 01/05/23 [History Confirmed 02/06/23] senna-docusate sodium tablet 2 tab PO DAILY 01/05/23 [History Confirmed 02/06/23] PFSH Medical History Abdominal pain, RLQ Acid reflux Acute diverticulitis Blackout Constipation Diabetes Diabetes mellitus Difficulty swallowing Dysphagia Fatigue Gastric reflux Hemorrhoids High cholesterol History of diverticulitis History of edema History of GI bleed History of irregular heartbeat History of pain when walking History of stress test Hx of angiography Hx of Burns's palsy Injury of head and neck Migraine headache Multiple sclerosis Nausea Non-smoker Numbness and tingling Pericarditis Post-menopausal Seizure Sleep apnea Sleep apnea SOB (shortness of breath) on exertion Syncope, vasovagal Thyroid disease Wears glasses Surgical History History of cholecystectomy History of colonoscopy History of dental surgery History of exploratory laparotomy History of left knee surgery History of lung biopsy (~08/2015) Hx of hysterectomy Hx of partial mastectomy Hx of tonsillectomy (~1969) Family History Father Bleeding disorder Colon cancerBrother DiabetesMother Thyroid disorder High blood cholesterol Social History Smoking Status: Never smoker second hand exposure: No alcohol intake: never substance use type: does not use caffeine: Yes what type of physical activity do you participate in: none frequency: does not exercise HPI HPI HPI: Today's appointment is to finalize plans for anticipated upcoming flexible sigmoidoscopy with intent to tattoo an area of suspected stricture of the sigmoid colon and then subsequent follow-up day laparoscopic sigmoid colectomy and laparoscopic appendectomy. These 2 procedures are tentatively scheduled for February 10 and February 11, 2023 My previous notes reflect the following Visit Reasons: F/U TESTING Chief Complaint: discuss CT Allergies iodine Allergy (Severe, Verified 01/23/23 12:31) Angioedemaacetaminophen [From Darvocet-N] Adverse Reaction (Verified 01/23/23 12:31) Unknownazathioprine Adverse Reaction (Verified 01/23/23 12:31) Pain in jointsgoldenseal [zuñiga seal] Adverse Reaction (Verified 01/23/23 12:31) Rashmeperidine [From Demerol] Adverse Reaction (Verified 01/23/23 12:31) Nauseapropoxyphene [From Darvocet-N] Adverse Reaction (Verified 01/23/23 12:31) Unknowntea tree Adverse Reaction (Verified 01/23/23 12:31) blister Medications cholecalciferol (vitamin D3) 25 mcg (1,000 unit) tablet (Vitamin D3) 1,000 unit PO DAILY 03/13/16 [History Confirmed 01/23/23] levothyroxine 125 mcg tablet 100 mcg PO DAILY 03/13/16 [History Confirmed 01/23/23] eedttmri-iqw-FY 200 mcg-vit K 15 mcg-lycope 150 qvr-kydihy-wbhx tablet (Ocuvite Eye Plus Multi) 1 ea PO DAILY 03/13/16 [History Confirmed 01/23/23] duloxetine 60 mg capsule,delayed release 1 capsule PO DAILY 10/24/16 [History Confirmed 01/23/23] acetaminophen 500 mg tablet 500 mg PO Q6H PRN PRN Pain 02/14/17 [History Confirmed 01/23/23] melatonin 10 mg tablet 10 mg PO QHS PRN Insomnia 02/14/17 [History Confirmed 01/23/23] topiramate 100 mg tablet 100 mg PO BID 02/14/17 [History Confirmed 01/23/23] dulaglutide 1.5 mg/0.5 mL subcutaneous pen injector (Trulicity) 1.5 mg subcut TH 07/28/22 [History Confirmed 01/23/23] levetiracetam 500 mg tablet 500 mg PO BID 07/28/22 [History Confirmed 01/23/23] pantoprazole 40 mg tablet,delayed release 40 mg PO DAILY 07/28/22 [History Confirmed 01/23/23] coenzyme Q10 100 mg capsule (Co Q-10) 100 mg PO DAILY 01/05/23 [History Confirmed 01/23/23] senna-docusate sodium tablet 2 tab PO DAILY 01/05/23 [History Confirmed 01/23/23] PFSH Medical History Abdominal pain, RLQ Acid reflux Acute diverticulitis Blackout Constipation Diabetes Diabetes mellitus Difficulty swallowing Dysphagia Fatigue Gastric reflux Hemorrhoids High cholesterol History of diverticulitis History of edema History of GI bleed History of irregular heartbeat History of pain when walking History of stress test Hx of angiography Hx of Burns's palsy Injury of head and neck Migraine headache Multiple sclerosis Nausea Non-smoker Numbness and tingling Pericarditis Post-menopausal Seizure Sleep apnea Sleep apnea SOB (shortness of breath) on exertion Syncope, vasovagal Thyroid disease Wears glasses Surgical History History of cholecystectomy History of colonoscopy History of dental surgery History of exploratory laparotomy History of left knee surgery History of lung biopsy (~08/2015) Hx of hysterectomy Hx of partial mastectomy Hx of tonsillectomy (~1969) Family History Father Bleeding disorder Colon cancerBrother DiabetesMother Thyroid disorder High blood cholesterol Social History Smoking Status: Never smoker second hand exposure: No alcohol intake: never substance use type: does not use caffeine: Yes what type of physical activity do you participate in: none frequency: does not exercise HPI HPI HPI: 62-year-old female who was referred by Dr. Josue Marques for surgical consultation regarding possible chronic appendicitis. The patient was seen by Lydia Lei PA-C on January 15, 2023 and I was able to briefly assist with that appointment. It appears that that was not the patient's primary concern that although she has had right lower quadrant pain and left upper quadrant pain chronically over a long period of time she was concerned about bowel habit changed and severe constipation and states that she was instructed that she would require a partial colectomy. She had a colonoscopy on January 07, 2023 that demonstrated fair perforation of the colon with 2 very small polyps at the hepatic flexure which were tubular adenomas. Biopsy of the cecum close to the appendiceal orifice was normal colonic mucosa. There was diverticulosis in the rectosigmoid. There is felt to be a stricture in the rectosigmoid. There was congested mucosa at the appendiceal orifice. She had had abdominal pelvic CT scan done on January 14, 2023 showing a stable enlarged appendix suggesting chronic appendicitis with no obstruction or abscess. This was compared to a previous CT scan of July 28, 2022 but at that time no mention of any abnormal appendix was made but the current study said just that there is no change in the interval. I have personally reviewed those images and find a consistent finding between the 2 sets of films although it was not commented upon in July. On January 21, 2023 at my request very minimal was done. There appeared to be a short segment of mild narrowing and borderline mucosal irregularity in the proximal sigmoid colon possibly correlating to a site of narrowing or stricturing. At my request on January 15, 2023 we obtain laboratory demonstrating white blood cell count normal at 7.8 with a hemoglobin of 13.6 and hematocrit of 42.3And a platelet count of 209,000 with no shift. Sed rate was normal at 10. CRP was elevated at 8.34 Previous office notes reflect the following Motion Picture Set Grip Required: No Is patient in pain?: Yes (7) Allergies iodine Allergy (Severe, Verified 01/15/23 09:33) Angioedemaacetaminophen [From Darvocet-N] Adverse Reaction (Verified 01/15/23 09:33) Unknownazathioprine Adverse Reaction (Verified 01/15/23 09:33) Pain in jointsgoldenseal [zuñiga seal] Adverse Reaction (Verified 01/15/23 09:33) Rashmeperidine [From Demerol] Adverse Reaction (Verified 01/15/23 09:33) Nauseapropoxyphene [From Darvocet-N] Adverse Reaction (Verified 01/15/23 09:33) Unknowntea tree Adverse Reaction (Verified 01/15/23 09:33) blister Medications cholecalciferol (vitamin D3) 25 mcg (1,000 unit) tablet (Vitamin D3) 1,000 unit PO DAILY 03/13/16 [History Confirmed 01/15/23] levothyroxine 125 mcg tablet 100 mcg PO DAILY 03/13/16 [History Confirmed 01/15/23] tpaxzkmk-sod-CL 200 mcg-vit K 15 mcg-lycope 150 gpv-csmavi-pgak tablet (Ocuvite Eye Plus Multi) 1 ea PO DAILY 03/13/16 [History Confirmed 01/15/23] duloxetine 60 mg capsule,delayed release 1 capsule PO DAILY 10/24/16 [History Confirmed 01/15/23] acetaminophen 500 mg tablet 500 mg PO Q6H PRN PRN Pain 02/14/17 [History Confirmed 01/15/23] melatonin 10 mg tablet 10 mg PO QHS PRN Insomnia 02/14/17 [History Confirmed 01/15/23] topiramate 100 mg tablet 100 mg PO BID 02/14/17 [History Confirmed 01/15/23] dulaglutide 1.5 mg/0.5 mL subcutaneous pen injector (Trulicity) 1.5 mg subcut TH 07/28/22 [History Confirmed 01/15/23] levetiracetam 500 mg tablet 500 mg PO BID 07/28/22 [History Confirmed 01/15/23] pantoprazole 40 mg tablet,delayed release 40 mg PO DAILY 07/28/22 [History Confirmed 01/15/23] peg 3350-electrolytes 236 gram-22.74 gram-6.74 gram-5.86 gram solution (Golytely) 240 ml PO Q10M #4,000 mL 10/31/22 [Rx Confirmed 01/15/23] coenzyme Q10 100 mg capsule (Co Q-10) 100 mg PO DAILY 01/05/23 [History Confirmed 01/15/23] senna-docusate sodium tablet 2 tab PO DAILY 01/05/23 [History Confirmed 01/15/23] Is last menstrual period known: No Post menopausal: Yes Patient : No PFSH Medical History Abdominal pain, RLQ Acid reflux Acute diverticulitis Blackout Constipation Diabetes Diabetes mellitus Difficulty swallowing Dysphagia Fatigue Gastric reflux Hemorrhoids High cholesterol History of diverticulitis History of edema History of GI bleed History of irregular heartbeat History of pain when walking History of stress test Hx of angiography Hx of Burns's palsy Injury of head and neck Migraine headache Multiple sclerosis Nausea Non-smoker Numbness and tingling Pericarditis Post-menopausal Seizure Sleep apnea Sleep apnea SOB (shortness of breath) on exertion Syncope, vasovagal Thyroid disease Wears glasses Surgical History (Updated 01/05/23 @ 09:01 by Ivis Dan) History of cholecystectomy History of colonoscopy History of dental surgery History of exploratory laparotomy History of left knee surgery History of lung biopsy (~08/2015) Hx of hysterectomy Hx of partial mastectomy Hx of tonsillectomy (~1969) Family History Father Bleeding disorder Colon cancerBrother DiabetesMother Thyroid disorder High blood cholesterol Social History Smoking Status: Never smoker second hand exposure: No alcohol intake: never substance use type: does not use caffeine: Yes what type of physical activity do you participate in: none frequency: does not exercise HPI HPI HPI: Patient is a 62 y/o F I am following for bilateral lower quadrant abdominal pain and chronic appendicitis. Patient notes during her childhood having constipation issues. She notes her mother taking giving her medication to assist with her bowel movements. Patient notes this continues into her adult life. She notes following her total hysterectomy in 1998, she noted a change in her bowel habits making it harder to have a BM. She notes having time frames of not going for 7 days at a time. She notes she has tried all different kinds of medications. She notes in July of this year she developed gas pain and pressure. Patient went to have a bowel movement and started with cold sweats and continued pain. Patient then noted she had blood within her stool and the toilet. Patient then proceeded to the ED where she was diagnosed with acute diverticulitis. She notes having a 4 day hospital stay with IV antibiotics. Patient was discharged to home. She noted continuing to have LLQ and LUQ discomfort. Patient also notes she has been having RLQ discomfort for over a year as well. Patient was scheduled with Dr. Marques for a colonoscopy on 01/07 which demonstrated the following: Findings: The perianal and digital rectal examinations were normal. Two sessile polyps were found in the hepatic flexure. The polyps were 1 to 2 mm in size. These polyps were removed with a cold snare. Resection and retrieval were complete. Verification of patient identification for the specimen was done. Estimated blood loss was minimal. A few small-mouthed diverticula were found in the recto-sigmoid colon. A benign-appearing, intrinsic moderate stenosis measuring 5 cm (in length) was found in the recto-sigmoid colon. An area of moderately congested mucosa was found appendiceal orifice. Biopsies were taken with a cold forceps for histology. Verification of patient identification for the specimen was done. Estimated blood loss was minimal. The terminal ileum appeared normal. Pathology demonstrated the following: A. Hepatic flexure polyp, biopsy: Fragments of tubular adenoma. B. Appendiceal orifice, biopsy: Fragments of colonic mucosa, no pathologic diagnosis Patient was referred to our office for inflammation of the appendix. Once the referral was found, patient was contacted by our office with concern of the patient possibly having appendicitis. We scheduled the patient for a CT scan of the ab/pel: IMPRESSION: Stable enlarged appendix suggesting chronic appendicitis. No obstruction or abscess. Hepatomegaly. Prior cholecystectomy. Patient notes a history for seizure (which she has not had in several years), thyroid, fibromyaglia, pericarditis, and sleep apnea. Patient has had 3 exploratory laparotomies for endometriosis, laparoscopic cholecystectomy. Patient notes she was recently placed on [place] by Dr. Hernandez 2 tablets twice daily for constipation. She notes this has slightly improved her stool output however she continues to have to push. ROS General General: Yes fatigue; No weight change, appetite, colon cancer, breast cancer or weakness HEENT HEENT: No difficulty swallowing, eye injury, eye surgery, swollen glands or hoarseness Endo Endocrine: Yes thyroid disease and diabetes mellitus; No thyroid cancer, Hair loss, heat intolerance or cold intolerance Musc Musculoskeletal: Yes back problems; No arthritis, rheumatoid arthritis, gout or joint pain Cardio Cardiovascular: No murmur, pacemaker, heart disease, atrial fibrillation, high blood pressure, heart attack, heart stent, palpitations, shortness of breat with exertion or chest pain Psych Psychiatric: No depression, anxiety or hearing voices Resp Respiratory: No shortness of breath, Yes sleep apnea, No cough, No COPD, No asthma, No emphysema and No wheezing Gastro Gastrointestinal: Yes abdominal pain, No nausea or vomiting, No diarrhea, Yes constipation, No blood in stool, Yes acid reflux, Yes hemorrhoids, No ulcers, No gallbladder problem and No black,tarry stools Christopher Hematologic: No blood thinners, No blood disorders, No bleeding, No anemia and No blood clots Neuro Neurologic: No weakness Exam Const General: cooperative, healthy appearing, comfortable and no acute distress [facility] Head: normal to inspection Eyes General: appearance normal, both eyes and all related structures Neck Neck: normal visual inspection Neck mass: No Resp Effort & Inspection: normal respiratory effort Auscultation: clear to auscultation bilaterally Cardio Rate: regular rate Rhythm: regular rhythm GI Inspection: normal to inspection Palpation: soft Auscultation: normal bowel sounds Other: Tenderness located in the RLQ and LLQ Musc Cervical Spine: normal cervical lordosis Skin General: no rashes or lesions noted Neuro General: no focal motor deficits and CN's II-XI intact bilaterally Extrem General: normal to inspection Psych Appearance: grossly normal Affect: normal affect Assessment and Plan Assessment and Plan (1) Abnormal CT of the abdomen: Status: Acute Plan: Dr. Armenta has also evaluated this patient. Recommend obtaining CBC, sed rate and CRP. Our office will call with those results. Patient is instructed to continue the Na[place] at this time. She is also to add Miralax 2 capfuls daily to her regimen to assist with bowel movements. Dr. Armenta did discuss with the patient in regards to removal of the appendix for possible mucocele of the appendix as the CT of the ab yesterday compared to the CT in July demonstrates an enlarged appendix. Patient's was told following the colonoscopy that the patient would be referred to the surgical office for possible removal of 10-12 of the patient's colon. Following this information, the decision was made to order a gastrografin enema for further evaluation of stricture of the recto-sigmoid region. Following this testing, patient will need to follow-up in the office with Dr. Armenta to determine if the patient needs a colectomy in conjunction with the appendectomy or if an appendectomy is the only surgical intervention needed. Patient has had the opportunity to ask and have questions answered. Patient verbally understands and agrees with the plan ROS General General: Yes fatigue; No weight change, appetite, colon cancer, breast cancer or weakness HEENT HEENT: No difficulty swallowing, eye injury, eye surgery, swollen glands or hoarseness Endo Endocrine: Yes thyroid disease and diabetes mellitus; No thyroid cancer, Hair loss, heat intolerance or cold intolerance Musc Musculoskeletal: Yes back problems; No arthritis, rheumatoid arthritis, gout or joint pain Cardio Cardiovascular: No murmur, pacemaker, heart disease, atrial fibrillation, high blood pressure, heart attack, heart stent, palpitations, shortness of breat with exertion or chest pain Psych Psychiatric: No depression, anxiety or hearing voices Resp Respiratory: No shortness of breath, Yes sleep apnea, No cough, No COPD, No asthma, No emphysema and No wheezing Gastro Gastrointestinal: Yes abdominal pain, No nausea or vomiting, No diarrhea, Yes constipation, No blood in stool, Yes acid reflux, Yes hemorrhoids, No ulcers, No gallbladder problem and No black,tarry stools Christopher Hematologic: No blood thinners, No blood disorders, No bleeding, No anemia and No blood clots Neuro Neurologic: No weakness Assessment and Plan Assessment and Plan (1) Chronic appendicitis: Status: Chronic Plan: Today's appointment was to discuss the findings of the mildly dilated appendix and the potential for chronic proximal sigmoid colonic stricture. I proposed to the patient a flexible sigmoidoscopy performed per myself to assess the degree of the stricturing and to tattoo the area with Yuli ink. Pending those findings could then consider the potential for a laparoscopic left colectomy in combination with a laparoscopic appendectomy. Today was a extensive consultative appointment to discuss these thoughts and recommendations. Today was a 30-minute [id number] consultative appointment. She states that she has had some looser stools since aggress graphing enema but now continues to complain of abdominal pain. She walks very gingerly holding her right lower quadrant. States that she felt warm but she is not febrile today. We discussed her lab work and the Gastrografin study and the colonoscopy. As noted I propose for her flexible sigmoidoscopy anticipating identifying an area of relative stenosis and tattoo marking that. If that is indeed found that I proposed for her a laparoscopic colectomy with primary anastomosis in combo with a laparoscopic appendectomy. I have discussed technique, benefit, risk, alternatives. She has had an opportunity ask and have questions answered. She would like to proceed with a flexible sigmoidoscopy and further inspection and marking of the affected area. I appreciate the opportunity of assisting with her surgical care. Copy: Dr. Juwan Hernandez and Dr. Salas Friend Carlos Armenta M.D., F.A.C.S. (2) Colon stricture: ROS General General: Yes fatigue; No weight change, appetite, colon cancer, breast cancer or weakness HEENT HEENT: No difficulty swallowing, eye injury, eye surgery, swollen glands or hoarseness Endo Endocrine: Yes thyroid disease and diabetes mellitus; No thyroid cancer, Hair loss, heat intolerance or cold intolerance Musc Musculoskeletal: Yes back problems; No arthritis, rheumatoid arthritis, gout or joint pain Cardio Cardiovascular: No murmur, pacemaker, heart disease, atrial fibrillation, high blood pressure, heart attack, heart stent, palpitations, shortness of breat with exertion or chest pain Psych Psychiatric: No depression, anxiety or hearing voices Resp Respiratory: No shortness of breath, Yes sleep apnea, No cough, No COPD, No asthma, No emphysema and No wheezing Gastro Gastrointestinal: Yes abdominal pain, No nausea or vomiting, No diarrhea, Yes constipation, No blood in stool, Yes acid reflux, Yes hemorrhoids, No ulcers, No gallbladder problem and No black,tarry stools Christopher Hematologic: No blood thinners, No blood disorders, No bleeding, No anemia and No blood clots Neuro Neurologic: No weakness Assessment and Plan Assessment and Plan (1) Colon stricture: Status: Acute (2) Chronic appendicitis: Status: Chronic Plan: I propose for the patient a ERAS protocol. I anticipate on February 10, 2023 performing a flexible sigmoidoscopy with intent on confirming the area of sigmoid abnormality and stricture with Yuli ink tattoo of this area. As noted previously the patient is complaining of severe constipation abdominal pain. On imaging she is felt to have a enlarged appendix and colonoscopy and barium enema suggest stricturing of the sigmoid colon. In detail we have reviewed the planned technique for the flexible sigmoidoscopy with tattooing followed up the subsequent day by planned laparoscopic sigmoid colectomy with a laparoscopic appendectomy. She is aware of the potential conversion to a hand-assisted procedure or open approach. She has had an opportunity to ask and have questions answered. She is aware that there will be surgical coverage in the postoperative period provided by my partners. She has had an opportunity to ask and have questions answered. She is more over aware that this may not resolve the entirety of her abdominal complaints and might not resolve her chronic constipation concerns. I anticipate performing a bilateral transabdominal plane block to assist her with postoperative comfort. I have vigorously encouraged her to mobilize postoperatively and we will utilize standard DVT protocols and incentive spirometry. She will be receiving an appropriate oral antibiotic and bowel prep preoperatively. In discussion again with the patient today she is hopeful that problems with continence chronic constipation will be improved or resolved. She is hopeful that the right lower pain episodes will be resolved. She is aware however that she may require ongoing bowel regimen and treatment. She is aware of the potential of an ileostomy. She has had an opportunity to ask and have questions answered. We will proceed as noted. Copy: Dr. Juwan Armenta M.D., F.A.C.S. I have examined the patient and the H&P has been reviewed. There are no clinical changes since date of exam. Carlos Armenta M.D., F.A.C.S.
[2023-02-10] MEDS: Lactated Ringers 1,000 ML 15 ML IV (10:11)
[2023-02-10 10:36] LABS: Bedside Glucose 144 mg/dL (74-106)
--- NOTE | 2023-02-10 11:29 | OP.CCLET_ITS ---
02/10/2023 Juwan Hernandez MD [address] [place] [address] Re : Flexible Sigmoidoscopy procedure for Mariepaulino Derasagustina Dear Dr. Hernandez This procedure was performed on Friday, February 10, 2023. My impressions and recommendations are as follows: Impressions : - Hemorrhoids found on perianal exam. - No specimens collected. - Severe diverticulosis in the recto-sigmoid colon and in the sigmoid colon. There was no evidence of diverticular bleeding. Recommendations : - Use fiber, for example Citrucel, Fibercon, Konsyl or Metamucil. Yuli ink tattoo made at 40 cm and at 10 cm. Between these 2 locations there is extensive diverticulosis however I was able to get the scope to advance past My findings are described in the full procedure note, which is enclosed. If I can be of further assistance, please feel free to contact me at Doctor phone number(s): Work: . Sincerely, Carlos Armenta MD 02/10/2023 11:28:20 AM This report has been signed electronically.
--- NOTE | 2023-02-10 11:29 | OP.FLEXSIG_ITS ---
Patient Name: Marie English Procedure Date: 02/10/2023 11:06 AM Date of : 1960 Age: 62 Procedure: Flexible Sigmoidoscopy Indications: Abdominal pain in the left lower quadrant Providers: Carlos Armenta MD Medicines: See the Anesthesia note for documentation of the administered medications Patient Profile: Last Colonoscopy: within the past 3 months. Complications: No immediate complications. Procedure: Pre-Anesthesia Assessment: - Prior to the procedure, a History and Physical was performed, and patient medications and allergies were reviewed. The patient's tolerance of previous anesthesia was also reviewed. The risks and benefits of the procedure and the sedation options and risks were discussed with the patient. All questions were answered, and informed consent was obtained. Prior Anticoagulants: The patient has taken no previous anticoagulant or antiplatelet agents. ASA Grade Assessment: II - A patient with mild systemic disease. After reviewing the risks and benefits, the patient was deemed in satisfactory condition to undergo the procedure. After obtaining informed consent, the endoscope was passed under direct vision. Throughout the procedure, the patient's blood pressure, pulse, and oxygen saturations were monitored continuously. The Colonoscope was introduced through the anus and advanced to the left transverse colon. The flexible sigmoidoscopy was accomplished without difficulty. The patient tolerated the procedure well. The quality of the bowel preparation was good. Scope In: 11:12:29 AM Scope Out: 11:21:44 AM Total Procedure Duration Time 0 hours 9 minutes 15 seconds Findings: Hemorrhoids were found on perianal exam. Impression: - Hemorrhoids found on perianal exam. - No specimens collected. - Severe diverticulosis in the recto-sigmoid colon and in the sigmoid colon. There was no evidence of diverticular bleeding. Recommendation: - Use fiber, for example Citrucel, Fibercon, Konsyl or Metamucil. Yuli ink tattoo made at 40 cm and at 10 cm. Between these 2 locations there is extensive diverticulosis however I was able to get the scope to advance past Procedure Code(s): --- Professional --- 73913, Sigmoidoscopy, flexible; diagnostic, including collection of specimen(s) by brushing or washing, when performed (separate procedure) Diagnosis Code(s): --- Professional --- K64.9, Unspecified hemorrhoids R10.32, Left lower quadrant pain K57.30, Diverticulosis of large intestine without perforation or abscess without bleeding CPT copyright 2017 [employer]. All rights reserved. The codes documented in this report are preliminary and upon lead javascript developer review may be revised to meet current compliance requirements. Carlos Armenta MD 02/10/2023 11:28:20 AM This report has been signed electronically. Number of Addenda: 0 Note Initiated On: 02/10/2023 11:06 AM
== END 2023-02-10 12:46 | disposition home or self-care (01) ==
LOC: EN 09:24 → AC 09:26
PROVIDERS: PCP Family Medicine Geriatric Medicine; Referring Provider Family Medicine Geriatric Medicine; Visit Provider Surgery
PROC: 0DJD8ZZ Inspection of Lower Intestinal Tract, Via Natural or Artificial Opening Endoscopic (ICD-10-PCS; CPT 45330; principal; 2023-02-10 10:25)
DX: K64.9 Unspecified hemorrhoids (principal); G35 Multiple sclerosis; K37 Unspecified appendicitis; E07.9 Disorder of thyroid, unspecified; G47.30 Sleep apnea, unspecified; K21.9 Gastro-esophageal reflux disease without esophagitis; Z79.899 Other long term (current) drug therapy; Z86.010 Personal history of colon polyps
CPT/HCPCS: 45330; 82962; A4648; J2405

== ENCOUNTER 2023-02-11 05:10 | Inpatient (IN) | payer MEDICARE, SELFPAY ==
[2023-02-06 10:05] LABS: Absolute Lymphocyte Count 1.66 X10^3/uL (0.83-4.51); Absolute Neutrophil Count 4.8 X10^3/uL (2.0-7.7); Basophil# 0.05 X10^3/uL; Basophil% 0.7 % (0-1); Eosinophil# 0.01 X10^3/uL; Eosinophils% 0.1 % (0-5); Hematocrit 39.8 % (37-47); Hemoglobin 12.7 g/dL (12.0-15.0); Lymphocyte # 1.66 X10^3/ul (0.83-4.51); Lymphocyte % 23.3 % (19-41); Mean Corp Hgb Conc 31.9 g/dL (32-36); Mean Corpuscular Hgb 29.2 pg (27.0-32.0); Mean Corpuscular Volume 91.5 fL (81-99); Mean Platelet Vol. 9.5 fl (6.2-12.0); Monocyte# 0.53 X10^3/uL; Monocyte% 7.4 % (0-10); NRBC Flagged by Analyzer 0 % (0-5); Neutrophil # 4.84 X10^3/uL (2.7-7.7); Neutrophil % 68.1 % (47-70); Platelet Count 192 K/mm3 (150-450); RBC Distribution Width CV 12.9 % (11.6-14.6); RBC Distribution Width SD 42.4 fl (35.1-43.9); Red Blood Count 4.35 M/mm3 (4.2-5.4); White Blood Count 7.1 K/mm3 (4.4-11.0)
[2023-02-06 10:32] LABS: AST(SGOT) 12 U/L (15-37); Alanine Aminotransfer ALT/SGPT 21 U/L (13-56); Albumin, Serum 3.3 g/dL (3.2-5.0); Alkaline Phosphatase 105 U/L (45-117); Anion Gap 3 (5-15); BUN 18 mg/dL (7-18); BUN/Creat Ratio 22.9 RATIO (10-20); Calcium,Total 8.9 mg/dL (8.5-10.1); Chloride 109 mmol/L (98-107); Creatinine, Serum 0.79 mg/dL (0.55-1.02); EST Glomerular Filtration Rate 79 mL/min (>60); Est Glom Filt Rate - Afr Amer 95 mL/min (>60); Globulin 3.4 g/dL (2.2-4.2); Glucose 170 mg/dL (74-106); Potassium 4.3 mmol/L (3.5-5.1); Protein, Total 6.7 g/dL (6.4-8.2); Sodium Level 142 mmol/L (136-145)
--- NOTE | 2023-02-09 08:47 | EKG12_ITS ---
Test Reason : PRE OP Blood Pressure : / mmHG Vent. Rate : 075 BPM Atrial Rate : 075 BPM P-R Int : 144 ms QRS Dur : 086 ms QT Int : 392 ms P-R-T Axes : 013 041 018 degrees QTc Int : 437 ms Normal sinus rhythm Low voltage QRS Nonspecific T wave abnormality Abnormal ECG Confirmed by LANDY MOULTON, MOMO ([id number]), assistant editor BOOGIE SANTIAGO ([id number]) on 02/10/2023 9:48:55 AM Referred By: Carlos Armenta Confirmed By:MOMO BILL MD
[2023-02-09 10:21] LABS: Partial Thromboplast Time 26.7 Seconds (24.1-36.2)
[2023-02-09 10:30] LABS: Magnesium 2.1 mg/dL (1.6-2.6)
[2023-02-09 10:43] LABS: Hemoglobin A1c 6.4 % (3.8-5.6)
[2023-02-11] VITALS (16 sets, daily range): BP systolic 98–122; BP diastolic 55–78; PULSE 72–94; RESP 10–18; TEMP 35.8–37; O2SAT 93–100; BMI 32.5
[2023-02-11] MEDS: Lactated Ringers 1,000 ML 15 ML IV ×3 (05:17→08:36)
--- NOTE | 2023-02-11 05:35 | PCM.HP.BLA ---
History and Physical Date of Admission: 02/11/23 Is patient in pain?: No Allergies iodine Allergy (Severe, Verified 02/06/23 08:17) Angioedemaacetaminophen [From Darvocet-N] Adverse Reaction (Verified 02/06/23 08:17) Unknownazathioprine Adverse Reaction (Verified 02/06/23 08:17) Pain in jointsgoldenseal [zuñiga seal] Adverse Reaction (Verified 02/06/23 08:17) Rashmeperidine [From Demerol] Adverse Reaction (Verified 02/06/23 08:17) Nauseapropoxyphene [From Darvocet-N] Adverse Reaction (Verified 02/06/23 08:17) Unknowntea tree Adverse Reaction (Verified 02/06/23 08:17) blister Medications cholecalciferol (vitamin D3) 25 mcg (1,000 unit) tablet (Vitamin D3) 1,000 unit PO DAILY 03/13/16 [History Confirmed 02/06/23] levothyroxine 125 mcg tablet 100 mcg PO DAILY 03/13/16 [History Confirmed 02/06/23] wzhjvqui-gzy-NI 200 mcg-vit K 15 mcg-lycope 150 gks-wkovpe-hbow tablet (Ocuvite Eye Plus Multi) 1 ea PO DAILY 03/13/16 [History Confirmed 02/06/23] duloxetine 60 mg capsule,delayed release 1 capsule PO DAILY 10/24/16 [History Confirmed 02/06/23] acetaminophen 500 mg tablet 500 mg PO Q6H PRN PRN Pain 02/14/17 [History Confirmed 02/06/23] melatonin 10 mg tablet 10 mg PO QHS PRN Insomnia 02/14/17 [History Confirmed 02/06/23] topiramate 100 mg tablet 100 mg PO BID 02/14/17 [History Confirmed 02/06/23] dulaglutide 1.5 mg/0.5 mL subcutaneous pen injector (Trulicity) 1.5 mg subcut TH 07/28/22 [History Confirmed 01/23/23] levetiracetam 500 mg tablet 500 mg PO BID 07/28/22 [History Confirmed 02/06/23] pantoprazole 40 mg tablet,delayed release 40 mg PO DAILY 07/28/22 [History Confirmed 02/06/23] coenzyme Q10 100 mg capsule (Co Q-10) 100 mg PO DAILY 01/05/23 [History Confirmed 02/06/23] senna-docusate sodium tablet 2 tab PO DAILY 01/05/23 [History Confirmed 02/06/23] PFSH Medical History Abdominal pain, RLQ Acid reflux Acute diverticulitis Blackout Constipation Diabetes Diabetes mellitus Difficulty swallowing Dysphagia Fatigue Gastric reflux Hemorrhoids High cholesterol History of diverticulitis History of edema History of GI bleed History of irregular heartbeat History of pain when walking History of stress test Hx of angiography Hx of Burns's palsy Injury of head and neck Migraine headache Multiple sclerosis Nausea Non-smoker Numbness and tingling Pericarditis Post-menopausal Seizure Sleep apnea Sleep apnea SOB (shortness of breath) on exertion Syncope, vasovagal Thyroid disease Wears glasses Surgical History History of cholecystectomy History of colonoscopy History of dental surgery History of exploratory laparotomy History of left knee surgery History of lung biopsy (~08/2015) Hx of hysterectomy Hx of partial mastectomy Hx of tonsillectomy (~1969) Family History Father Bleeding disorder Colon cancerBrother DiabetesMother Thyroid disorder High blood cholesterol Social History Smoking Status: Never smoker second hand exposure: No alcohol intake: never substance use type: does not use caffeine: Yes what type of physical activity do you participate in: none frequency: does not exercise HPI HPI HPI: Today's appointment is to finalize plans for anticipated upcoming flexible sigmoidoscopy with intent to tattoo an area of suspected stricture of the sigmoid colon and then subsequent follow-up day laparoscopic sigmoid colectomy and laparoscopic appendectomy. These 2 procedures are tentatively scheduled for February 10 and February 11, 2023 My previous notes reflect the following Visit Reasons: F/U TESTING Chief Complaint: discuss CT Allergies iodine Allergy (Severe, Verified 01/23/23 12:31) Angioedemaacetaminophen [From Darvocet-N] Adverse Reaction (Verified 01/23/23 12:31) Unknownazathioprine Adverse Reaction (Verified 01/23/23 12:31) Pain in jointsgoldenseal [zuñiga seal] Adverse Reaction (Verified 01/23/23 12:31) Rashmeperidine [From Demerol] Adverse Reaction (Verified 01/23/23 12:31) Nauseapropoxyphene [From Darvocet-N] Adverse Reaction (Verified 01/23/23 12:31) Unknowntea tree Adverse Reaction (Verified 01/23/23 12:31) blister Medications cholecalciferol (vitamin D3) 25 mcg (1,000 unit) tablet (Vitamin D3) 1,000 unit PO DAILY 03/13/16 [History Confirmed 01/23/23] levothyroxine 125 mcg tablet 100 mcg PO DAILY 03/13/16 [History Confirmed 01/23/23] xpyztsjt-kwt-RG 200 mcg-vit K 15 mcg-lycope 150 kil-wszfjy-vgvs tablet (Ocuvite Eye Plus Multi) 1 ea PO DAILY 03/13/16 [History Confirmed 01/23/23] duloxetine 60 mg capsule,delayed release 1 capsule PO DAILY 10/24/16 [History Confirmed 01/23/23] acetaminophen 500 mg tablet 500 mg PO Q6H PRN PRN Pain 02/14/17 [History Confirmed 01/23/23] melatonin 10 mg tablet 10 mg PO QHS PRN Insomnia 02/14/17 [History Confirmed 01/23/23] topiramate 100 mg tablet 100 mg PO BID 02/14/17 [History Confirmed 01/23/23] dulaglutide 1.5 mg/0.5 mL subcutaneous pen injector (Trulicity) 1.5 mg subcut TH 07/28/22 [History Confirmed 01/23/23] levetiracetam 500 mg tablet 500 mg PO BID 07/28/22 [History Confirmed 01/23/23] pantoprazole 40 mg tablet,delayed release 40 mg PO DAILY 07/28/22 [History Confirmed 01/23/23] coenzyme Q10 100 mg capsule (Co Q-10) 100 mg PO DAILY 01/05/23 [History Confirmed 01/23/23] senna-docusate sodium tablet 2 tab PO DAILY 01/05/23 [History Confirmed 01/23/23] PFSH Medical History Abdominal pain, RLQ Acid reflux Acute diverticulitis Blackout Constipation Diabetes Diabetes mellitus Difficulty swallowing Dysphagia Fatigue Gastric reflux Hemorrhoids High cholesterol History of diverticulitis History of edema History of GI bleed History of irregular heartbeat History of pain when walking History of stress test Hx of angiography Hx of Burns's palsy Injury of head and neck Migraine headache Multiple sclerosis Nausea Non-smoker Numbness and tingling Pericarditis Post-menopausal Seizure Sleep apnea Sleep apnea SOB (shortness of breath) on exertion Syncope, vasovagal Thyroid disease Wears glasses Surgical History History of cholecystectomy History of colonoscopy History of dental surgery History of exploratory laparotomy History of left knee surgery History of lung biopsy (~08/2015) Hx of hysterectomy Hx of partial mastectomy Hx of tonsillectomy (~1969) Family History Father Bleeding disorder Colon cancerBrother DiabetesMother Thyroid disorder High blood cholesterol Social History Smoking Status: Never smoker second hand exposure: No alcohol intake: never substance use type: does not use caffeine: Yes what type of physical activity do you participate in: none frequency: does not exercise HPI HPI HPI: 62-year-old female who was referred by Dr. Josue Marques for surgical consultation regarding possible chronic appendicitis. The patient was seen by Lydia Lei PA-C on January 15, 2023 and I was able to briefly assist with that appointment. It appears that that was not the patient's primary concern that although she has had right lower quadrant pain and left upper quadrant pain chronically over a long period of time she was concerned about bowel habit changed and severe constipation and states that she was instructed that she would require a partial colectomy. She had a colonoscopy on January 07, 2023 that demonstrated fair perforation of the colon with 2 very small polyps at the hepatic flexure which were tubular adenomas. Biopsy of the cecum close to the appendiceal orifice was normal colonic mucosa. There was diverticulosis in the rectosigmoid. There is felt to be a stricture in the rectosigmoid. There was congested mucosa at the appendiceal orifice. She had had abdominal pelvic CT scan done on January 14, 2023 showing a stable enlarged appendix suggesting chronic appendicitis with no obstruction or abscess. This was compared to a previous CT scan of July 28, 2022 but at that time no mention of any abnormal appendix was made but the current study said just that there is no change in the interval. I have personally reviewed those images and find a consistent finding between the 2 sets of films although it was not commented upon in July. On January 21, 2023 at my request very minimal was done. There appeared to be a short segment of mild narrowing and borderline mucosal irregularity in the proximal sigmoid colon possibly correlating to a site of narrowing or stricturing. At my request on January 15, 2023 we obtain laboratory demonstrating white blood cell count normal at 7.8 with a hemoglobin of 13.6 and hematocrit of 42.3And a platelet count of 209,000 with no shift. Sed rate was normal at 10. CRP was elevated at 8.34 Previous office notes reflect the following Manager Traffic Required: No Is patient in pain?: Yes (7) Allergies iodine Allergy (Severe, Verified 01/15/23 09:33) Angioedemaacetaminophen [From Darvocet-N] Adverse Reaction (Verified 01/15/23 09:33) Unknownazathioprine Adverse Reaction (Verified 01/15/23 09:33) Pain in jointsgoldenseal [zuñiga seal] Adverse Reaction (Verified 01/15/23 09:33) Rashmeperidine [From Demerol] Adverse Reaction (Verified 01/15/23 09:33) Nauseapropoxyphene [From Darvocet-N] Adverse Reaction (Verified 01/15/23 09:33) Unknowntea tree Adverse Reaction (Verified 01/15/23 09:33) blister Medications cholecalciferol (vitamin D3) 25 mcg (1,000 unit) tablet (Vitamin D3) 1,000 unit PO DAILY 03/13/16 [History Confirmed 01/15/23] levothyroxine 125 mcg tablet 100 mcg PO DAILY 03/13/16 [History Confirmed 01/15/23] ljfbklyt-qsz-PD 200 mcg-vit K 15 mcg-lycope 150 shc-akxjjw-kmeh tablet (Ocuvite Eye Plus Multi) 1 ea PO DAILY 03/13/16 [History Confirmed 01/15/23] duloxetine 60 mg capsule,delayed release 1 capsule PO DAILY 10/24/16 [History Confirmed 01/15/23] acetaminophen 500 mg tablet 500 mg PO Q6H PRN PRN Pain 02/14/17 [History Confirmed 01/15/23] melatonin 10 mg tablet 10 mg PO QHS PRN Insomnia 02/14/17 [History Confirmed 01/15/23] topiramate 100 mg tablet 100 mg PO BID 02/14/17 [History Confirmed 01/15/23] dulaglutide 1.5 mg/0.5 mL subcutaneous pen injector (Trulicity) 1.5 mg subcut TH 07/28/22 [History Confirmed 01/15/23] levetiracetam 500 mg tablet 500 mg PO BID 07/28/22 [History Confirmed 01/15/23] pantoprazole 40 mg tablet,delayed release 40 mg PO DAILY 07/28/22 [History Confirmed 01/15/23] peg 3350-electrolytes 236 gram-22.74 gram-6.74 gram-5.86 gram solution (Golytely) 240 ml PO Q10M #4,000 mL 10/31/22 [Rx Confirmed 01/15/23] coenzyme Q10 100 mg capsule (Co Q-10) 100 mg PO DAILY 01/05/23 [History Confirmed 01/15/23] senna-docusate sodium tablet 2 tab PO DAILY 01/05/23 [History Confirmed 01/15/23] Is last menstrual period known: No Post menopausal: Yes Patient : No PFSH Medical History Abdominal pain, RLQ Acid reflux Acute diverticulitis Blackout Constipation Diabetes Diabetes mellitus Difficulty swallowing Dysphagia Fatigue Gastric reflux Hemorrhoids High cholesterol History of diverticulitis History of edema History of GI bleed History of irregular heartbeat History of pain when walking History of stress test Hx of angiography Hx of Burns's palsy Injury of head and neck Migraine headache Multiple sclerosis Nausea Non-smoker Numbness and tingling Pericarditis Post-menopausal Seizure Sleep apnea Sleep apnea SOB (shortness of breath) on exertion Syncope, vasovagal Thyroid disease Wears glasses Surgical History (Updated 01/05/23 @ 09:01 by Ivis Dan) History of cholecystectomy History of colonoscopy History of dental surgery History of exploratory laparotomy History of left knee surgery History of lung biopsy (~08/2015) Hx of hysterectomy Hx of partial mastectomy Hx of tonsillectomy (~1969) Family History Father Bleeding disorder Colon cancerBrother DiabetesMother Thyroid disorder High blood cholesterol Social History Smoking Status: Never smoker second hand exposure: No alcohol intake: never substance use type: does not use caffeine: Yes what type of physical activity do you participate in: none frequency: does not exercise HPI HPI HPI: Patient is a 62 y/o F I am following for bilateral lower quadrant abdominal pain and chronic appendicitis. Patient notes during her childhood having constipation issues. She notes her mother taking giving her medication to assist with her bowel movements. Patient notes this continues into her adult life. She notes following her total hysterectomy in 1998, she noted a change in her bowel habits making it harder to have a BM. She notes having time frames of not going for 7 days at a time. She notes she has tried all different kinds of medications. She notes in July of this year she developed gas pain and pressure. Patient went to have a bowel movement and started with cold sweats and continued pain. Patient then noted she had blood within her stool and the toilet. Patient then proceeded to the ED where she was diagnosed with acute diverticulitis. She notes having a 4 day hospital stay with IV antibiotics. Patient was discharged to home. She noted continuing to have LLQ and LUQ discomfort. Patient also notes she has been having RLQ discomfort for over a year as well. Patient was scheduled with Dr. Marques for a colonoscopy on 01/07 which demonstrated the following: Findings: The perianal and digital rectal examinations were normal. Two sessile polyps were found in the hepatic flexure. The polyps were 1 to 2 mm in size. These polyps were removed with a cold snare. Resection and retrieval were complete. Verification of patient identification for the specimen was done. Estimated blood loss was minimal. A few small-mouthed diverticula were found in the recto-sigmoid colon. A benign-appearing, intrinsic moderate stenosis measuring 5 cm (in length) was found in the recto-sigmoid colon. An area of moderately congested mucosa was found appendiceal orifice. Biopsies were taken with a cold forceps for histology. Verification of patient identification for the specimen was done. Estimated blood loss was minimal. The terminal ileum appeared normal. Pathology demonstrated the following: A. Hepatic flexure polyp, biopsy: Fragments of tubular adenoma. B. Appendiceal orifice, biopsy: Fragments of colonic mucosa, no pathologic diagnosis Patient was referred to our office for inflammation of the appendix. Once the referral was found, patient was contacted by our office with concern of the patient possibly having appendicitis. We scheduled the patient for a CT scan of the ab/pel: IMPRESSION: Stable enlarged appendix suggesting chronic appendicitis. No obstruction or abscess. Hepatomegaly. Prior cholecystectomy. Patient notes a history for seizure (which she has not had in several years), thyroid, fibromyaglia, pericarditis, and sleep apnea. Patient has had 3 exploratory laparotomies for endometriosis, laparoscopic cholecystectomy. Patient notes she was recently placed on [place] by Dr. Hernandez 2 tablets twice daily for constipation. She notes this has slightly improved her stool output however she continues to have to push. ROS General General: Yes fatigue; No weight change, appetite, colon cancer, breast cancer or weakness HEENT HEENT: No difficulty swallowing, eye injury, eye surgery, swollen glands or hoarseness Endo Endocrine: Yes thyroid disease and diabetes mellitus; No thyroid cancer, Hair loss, heat intolerance or cold intolerance Musc Musculoskeletal: Yes back problems; No arthritis, rheumatoid arthritis, gout or joint pain Cardio Cardiovascular: No murmur, pacemaker, heart disease, atrial fibrillation, high blood pressure, heart attack, heart stent, palpitations, shortness of breat with exertion or chest pain Psych Psychiatric: No depression, anxiety or hearing voices Resp Respiratory: No shortness of breath, Yes sleep apnea, No cough, No COPD, No asthma, No emphysema and No wheezing Gastro Gastrointestinal: Yes abdominal pain, No nausea or vomiting, No diarrhea, Yes constipation, No blood in stool, Yes acid reflux, Yes hemorrhoids, No ulcers, No gallbladder problem and No black,tarry stools Christopher Hematologic: No blood thinners, No blood disorders, No bleeding, No anemia and No blood clots Neuro Neurologic: No weakness Exam Const General: cooperative, healthy appearing, comfortable and no acute distress [facility] Head: normal to inspection Eyes General: appearance normal, both eyes and all related structures Neck Neck: normal visual inspection Neck mass: No Resp Effort & Inspection: normal respiratory effort Auscultation: clear to auscultation bilaterally Cardio Rate: regular rate Rhythm: regular rhythm GI Inspection: normal to inspection Palpation: soft Auscultation: normal bowel sounds Other: Tenderness located in the RLQ and LLQ Musc Cervical Spine: normal cervical lordosis Skin General: no rashes or lesions noted Neuro General: no focal motor deficits and CN's II-XI intact bilaterally Extrem General: normal to inspection Psych Appearance: grossly normal Affect: normal affect Assessment and Plan Assessment and Plan (1) Abnormal CT of the abdomen: Status: Acute Plan: Dr. Armenta has also evaluated this patient. Recommend obtaining CBC, sed rate and CRP. Our office will call with those results. Patient is instructed to continue the Nahed at this time. She is also to add Miralax 2 capfuls daily to her regimen to assist with bowel movements. Dr. Armenta did discuss with the patient in regards to removal of the appendix for possible mucocele of the appendix as the CT of the ab yesterday compared to the CT in July demonstrates an enlarged appendix. Patient's was told following the colonoscopy that the patient would be referred to the surgical office for possible removal of 10-12 of the patient's colon. Following this information, the decision was made to order a gastrografin enema for further evaluation of stricture of the recto-sigmoid region. Following this testing, patient will need to follow-up in the office with Dr. Armenta to determine if the patient needs a colectomy in conjunction with the appendectomy or if an appendectomy is the only surgical intervention needed. Patient has had the opportunity to ask and have questions answered. Patient verbally understands and agrees with the plan ROS General General: Yes fatigue; No weight change, appetite, colon cancer, breast cancer or weakness HEENT HEENT: No difficulty swallowing, eye injury, eye surgery, swollen glands or hoarseness Endo Endocrine: Yes thyroid disease and diabetes mellitus; No thyroid cancer, Hair loss, heat intolerance or cold intolerance Musc Musculoskeletal: Yes back problems; No arthritis, rheumatoid arthritis, gout or joint pain Cardio Cardiovascular: No murmur, pacemaker, heart disease, atrial fibrillation, high blood pressure, heart attack, heart stent, palpitations, shortness of breat with exertion or chest pain Psych Psychiatric: No depression, anxiety or hearing voices Resp Respiratory: No shortness of breath, Yes sleep apnea, No cough, No COPD, No asthma, No emphysema and No wheezing Gastro Gastrointestinal: Yes abdominal pain, No nausea or vomiting, No diarrhea, Yes constipation, No blood in stool, Yes acid reflux, Yes hemorrhoids, No ulcers, No gallbladder problem and No black,tarry stools Christopher Hematologic: No blood thinners, No blood disorders, No bleeding, No anemia and No blood clots Neuro Neurologic: No weakness Assessment and Plan Assessment and Plan (1) Chronic appendicitis: Status: Chronic Plan: Today's appointment was to discuss the findings of the mildly dilated appendix and the potential for chronic proximal sigmoid colonic stricture. I proposed to the patient a flexible sigmoidoscopy performed per myself to assess the degree of the stricturing and to tattoo the area with Yuli ink. Pending those findings could then consider the potential for a laparoscopic left colectomy in combination with a laparoscopic appendectomy. Today was a extensive consultative appointment to discuss these thoughts and recommendations. Today was a 30-minute [id number] consultative appointment. She states that she has had some looser stools since aggress graphing enema but now continues to complain of abdominal pain. She walks very gingerly holding her right lower quadrant. States that she felt warm but she is not febrile today. We discussed her lab work and the Gastrografin study and the colonoscopy. As noted I propose for her flexible sigmoidoscopy anticipating identifying an area of relative stenosis and tattoo marking that. If that is indeed found that I proposed for her a laparoscopic colectomy with primary anastomosis in combo with a laparoscopic appendectomy. I have discussed technique, benefit, risk, alternatives. She has had an opportunity ask and have questions answered. She would like to proceed with a flexible sigmoidoscopy and further inspection and marking of the affected area. I appreciate the opportunity of assisting with her surgical care. Copy: Dr. Juwan Hernandez and Dr. Salas Friend Carlos Armenta M.D., F.A.C.S. (2) Colon stricture: ROS General General: Yes fatigue; No weight change, appetite, colon cancer, breast cancer or weakness HEENT HEENT: No difficulty swallowing, eye injury, eye surgery, swollen glands or hoarseness Endo Endocrine: Yes thyroid disease and diabetes mellitus; No thyroid cancer, Hair loss, heat intolerance or cold intolerance Musc Musculoskeletal: Yes back problems; No arthritis, rheumatoid arthritis, gout or joint pain Cardio Cardiovascular: No murmur, pacemaker, heart disease, atrial fibrillation, high blood pressure, heart attack, heart stent, palpitations, shortness of breat with exertion or chest pain Psych Psychiatric: No depression, anxiety or hearing voices Resp Respiratory: No shortness of breath, Yes sleep apnea, No cough, No COPD, No asthma, No emphysema and No wheezing Gastro Gastrointestinal: Yes abdominal pain, No nausea or vomiting, No diarrhea, Yes constipation, No blood in stool, Yes acid reflux, Yes hemorrhoids, No ulcers, No gallbladder problem and No black,tarry stools Christopher Hematologic: No blood thinners, No blood disorders, No bleeding, No anemia and No blood clots Neuro Neurologic: No weakness Assessment and Plan Assessment and Plan (1) Colon stricture: Status: Acute (2) Chronic appendicitis: Status: Chronic Plan: I propose for the patient a ERAS protocol. I anticipate on February 10, 2023 performing a flexible sigmoidoscopy with intent on confirming the area of sigmoid abnormality and stricture with Yuli ink tattoo of this area. As noted previously the patient is complaining of severe constipation abdominal pain. On imaging she is felt to have a enlarged appendix and colonoscopy and barium enema suggest stricturing of the sigmoid colon. In detail we have reviewed the planned technique for the flexible sigmoidoscopy with tattooing followed up the subsequent day by planned laparoscopic sigmoid colectomy with a laparoscopic appendectomy. She is aware of the potential conversion to a hand-assisted procedure or open approach. She has had an opportunity to ask and have questions answered. She is aware that there will be surgical coverage in the postoperative period provided by my partners. She has had an opportunity to ask and have questions answered. She is more over aware that this may not resolve the entirety of her abdominal complaints and might not resolve her chronic constipation concerns. I anticipate performing a bilateral transabdominal plane block to assist her with postoperative comfort. I have vigorously encouraged her to mobilize postoperatively and we will utilize standard DVT protocols and incentive spirometry. She will be receiving an appropriate oral antibiotic and bowel prep preoperatively. In discussion again with the patient today she is hopeful that problems with continence chronic constipation will be improved or resolved. She is hopeful that the right lower pain episodes will be resolved. She is aware however that she may require ongoing bowel regimen and treatment. She is aware of the potential of an ileostomy. She has had an opportunity to ask and have questions answered. We will proceed as noted. Copy: Dr. Juwan Armenta M.D., F.A.C.S Assessment & Plan Assessment/Plan (1) Colon stricture: PLAN: Plan to proceed with a laparoscopic appendectomy and hopefully a laparoscopic left colectomy today. The patient had a previous exploratory laparotomy as well as a hysterectomy. Adhesions may be present. Plan for a laparoscopic bilateral tap block as well. She is aware of technique, benefit, risk, alternatives and potential need to convert to hand-assisted or open. We will proceed as noted. Carlos Armenta M.D., F.A.C.S. (2) Chronic appendicitis:
[2023-02-11] MEDS: Magnesium 1 GM over 15 mins IV (06:10)
[2023-02-11] MEDS: Gabapentin 600 MG Tablet PO (06:20)
[2023-02-11] MEDS: Acetaminophen 500 MG Tablet 1000 MG PO (06:25)
[2023-02-11 06:47] LABS: Bedside Glucose 193 mg/dL (74-106)
--- NOTE | 2023-02-11 07:04 | EX.PCM.DISCH ---
Discharge Instructions Procedure General Surgery Diet Discharge Diet: Light diet - advance as tolerated (if you have questions about your diet instructions, please talk to you doctor.) Activity Discharge Activity: May Not Drive (for 3-5 days or while taking narcotic pain medicine.) May shower in (days): 1 Lifting Restrictions: 10 pounds Dressing / Incision Call your doctor if your incision/area has: Continuous Slow Oozing, Sudden Increased Bleeding, Increased Pain/ Swelling, Increased Redness and Foul Smelling Discharge Call your doctor if you observe: Fever of 101 or Higher Suture Line Care: Avoid Pulling/Pushing and Avoid Pinching/Bending Additional Dressing/Incision Instructions:: Change or remove dressing in 4 days. Leave steri-strips in place for 1 week. Follow Up Care Please Follow Up With: Carlos Armenta MD When: Call [phone] to make an appointment to be seen in about 10 days. Test Results: Test results from this visit will be discussed in further detail at your follow-up appointment, if applicable. Discharge Plan Admission Admit Date/Time: 02/11/23 05:10 Primary Reason for Your Visit: Chronic appendicitis and colonic stricture Attending Provider: Carlos Armenta Primary Care Provider: Juwan Hernandez Chi Instructions Additional Instructions / Restrictions: Recommend alternating between Tylenol 650 mg and ibuprofen 600 mg every 3 hours. For example: Tylenol at 0800, ibuprofen at 1200, Tylenol at 1500 (3pm), Ibuprofen at 1800 (6pm), etc. as needed for pain You may take oxycodone as needed for severe pain. This may have constipating effects. We prefer you to take Tylenol and Ibuprofen alternating. You will go home on the transitional diet: Transitional Diet Beverages: ? Soda (cola, diet cola, lemon-[place], diet lemon-[place], kellie christiano, diet kellie christiano) ? Tea (hot or iced) ? Milk (low-fat, 2%, lactose free) ? Coffee ? Juice (without pulp) ? Oral Nutrition supplement Breakfast: ? Hot cereal (oatmeal or cream of wheat) ? Scrambled eggs ? Blueberry muffin ? Cold cereal (no whole grain cereals) ? [place] (white) Lunch or Dinner: Deli Items: Hot Items: Carmel sandwich Roast Carmel Tuna salad (sandwich or alone) Macaroni & Cheese Egg salad (sandwich or alone) Mashed potatoes & gravy Chicken salad (sandwich or alone) Carrots Green beans Cold Sides: Soups: Cottage cheese Vegetable soup Yogurt Chicken noodle Hardboiled egg Dessert: ? Gelatin, pudding, side kick (juice slushie) Discharge Orders/Prescriptions Prescriptions: New oxycodone 5 mg Tablet 5 mg PO Q6H PRN PRN (Reason: Pain Score 4-10) 3 Days Qty: 10 0RF Continued levothyroxine 125 MCG tablet 100 mcg PO DAILY cholecalciferol (vitamin D3) [Vitamin D3] 1,000 UNIT tablet 1,000 unit PO DAILY Ocuvite Eye Plus Multi 1 EACH tablet 1 ea PO DAILY duloxetine 60 MG capsule,delayed release(DR/EC) 1 capsule PO DAILY acetaminophen 500 MG tablet 500 mg PO Q6H PRN PRN (Reason: Pain) topiramate 100 MG tablet 100 mg PO BID melatonin 10 MG tablet 10 mg PO QHS PRN (Reason: Insomnia) levetiracetam 500 mg tablet 500 mg PO BID pantoprazole 40 mg tablet,delayed release (DR/EC) 40 mg PO DAILY coenzyme Q10 [Co Q-10] 100 mg capsule 100 mg PO DAILY Ozempic 0.25 mg or 0.5 mg (2 mg/3 mL) pen injector 0.25 mg subcut QWEEK Patient Comments: patient takes on Mondays Discontinued metronidazole 500 mg tablet 500 mg PO DIRECTED Qty: 6 0RF Rx Instructions: Take 2 tabs PO at 1pm, 3pm, and 11pm the day before surgery neomycin 500 mg tablet 500 mg PO DIRECTED Qty: 6 0RF Rx Instructions: Take 2 tabs PO at 1pm, 3pm, and 11pm the day before surgery senna-docusate sodium Tablet 2 tab PO BID polyethylene glycol 3350 [Miralax] 17 gram/dose powder 17 g PO BID Other Ambulatory Orders: 12 Lead EKG (Routine) Timeframe: 20230209 Location: None Selected Ordered By: Dr. Carlos Armenta Referrals / Follow Up: Juwan Hernandez Chi, MD [Primary Care Provider] - Disposition Disposition (needs filled in before D/C Order can be placed): Home, Self Care
[2023-02-11] MEDS: Cefotetan 2 GM in 0.9% NS 100 ML IV (07:27)
--- NOTE | 2023-02-11 07:30 | COL._PTH ---
PATIENT: JOSE GUADALUPE FISHER LOC: [facility] U#:[id number] AGE/SX: 62/F ROOM: NV321 RE02/11/[address]: Dr. Carlos Armenta MD : 1960 BED: 1 DIS: 02/13/2023 SPEC #: [id number] RECD: 02/11/23 14:08 STATUS: MARTY JENKINS #: [id number] BRAXTON: 02/11/23 07:[address]: Carlos Armenta DEPT: SURGICAL PATHOLOGY RECD BY: Mee Brian ENTERED: 02/12/23 09:59 SP TYPE: COLON OTHR DR: Dr. Juwan Hernandez MD Tissues: A - Colon, NOS B - Colon Donuts C - Colon Donuts D - APPENDIX (INCIDENTAL) Procedures: Surgery Specimen Level II Surgery Specimen Level III Surgery Specimen Level HEADER OPERATION: ERAS, lap left colectomy and lap appendectomy PRE-OP DIAGNOSIS: Abnormal CT of abdomen TISSUE SUBMITTED: A - Sigmoid colon, B - Proximal sigmoid donut, C - Distal rectal donut, D - Appendix MICROSCOPIC DIAGNOSIS A. Sigmoid colon, colectomy: Diverticulosis. Area of tattooing with reactive changes. B. Proximal sigmoid colonic donut: No pathologic diagnosis. C. Distal rectal donut: No pathologic diagnosis. D. Appendix, appendectomy: Appendix with extensive fibrous luminal obliteration. See comment. GENIE:eladio 02/13/2023 COMMENT D. Significant inflammation is not seen. Please make reference to previous specimen ([id number]), hepatic flexure polyp, biopsy with diagnosis of fragments of tubular adenoma and appendiceal orifice, biopsy with diagnosis of fragments of colonic mucosa, no pathologic diagnosis. Case has been reviewed in consultation with Dr. Bowie who concurs with the above diagnosis. IDC:AM MICROSCOPIC DESCRIPTION Slides are reviewed. GROSS DESCRIPTION A - Received in fixative is one container labeled with the patient's name and designated sigmoid colon. The specimen consists of a 37.0 cm long portion of colon with attached pericolonic adipose tissue. One resection margin is stapled and other resection margin is open. Focal area of mucosal and serosal tattooing is noted 5.0 cm away from the stapled resection margin. No lesion is identified in this area. Sections reveal a few diverticula. No obviously ruptured diverticula are noted. Sections of the pericolonic adipose tissue do not reveal any obviously enlarged lymph node. Fuel Assembler sections are submitted as follows: 1 - open resection margin, 2 - stapled resection margin, 3 & 4 - bowel wall, area of tattooing, 5?& 6 - diverticula, 7 - sections with serosal ragged surface, 8 - pericolonic adipose tissue. / : 02/12/2023 B - Received in fixative is one container labeled with the patient's name and designated proximal sigmoid donut. The specimen consists of a donut-shaped piece of colonic tissue measuring 2.0 x 1.8 x 1.0 cm. Multiple sutures are present. Fuel Assembler sections are submitted in one cassette. / : 02/12/2023 C - Received in fixative is one container labeled with the patient's name and designated distal rectal donut. The specimen consists of a donut-shaped piece of colonic tissue measuring 1.5 x 1.0 x 2.0 cm. Fuel Assembler sections are submitted in one cassette. / : 02/12/2023 D - Received in fixative is one container labeled with the patient's name and designated appendix. The specimen consists of a C-shaped appendix measuring 6.0 cm in length and up to 0.9 cm in diameter. The attached periappendiceal adipose tissue measures up to 2.5 cm in width. No obvious perforation is identified. Sections of the appendix reveal a few diverticula close to the tip. No obviously ruptured diverticula are noted. The lumen is pinpoint. No mass lesion is identified. Sections of periappendiceal adipose tissue do not reveal any obviously enlarged lymph node. Entire appendix is submitted in four cassettes. Cassette 1 contains the tip and proximal portion of the appendix and cassette 2 also contains the other half of the appendix. / : 02/12/2023 TC:5 CPT: 96999, 78338 x3
[2023-02-11] MEDS: Lubricating Jelly 60 GM Tube 30 GM (11:00)
[2023-02-11] MEDS: BUPIVACAINE LIPOSOME/PF 20 ML VIAL OPERA.SITE (11:42)
[2023-02-11] MEDS: 0.9% Normal Saline (Pres. free 10 ML Vial (11:42)
[2023-02-11] MEDS: Bupivacaine 0.25% 30 ML Vial (11:42)
--- NOTE | 2023-02-11 12:14 | OP.PCM_ITS ---
Report of Operation Date of Procedure: 02/11/23 Pre-Operative Diagnosis: Sigmoid stricture, chronic appendicitis Post-Operative Diagnosis: Same plus extensive intra-abdominal adhesions Surgery/Procedure Performed:: Laparoscopic lysis of adhesions greater than 1 hour Laparoscopic left colectomy Laparoscopic appendectomy Bilateral transversus abdominis plane block Description of Surgical Findings:: Timeout informed consent was obtained. The patient was taken the op room placed upon the table underwent general endotracheal ovation esthesia cefotetan 2 g given intravenously she was placed in low lithotomy position beanbag was placed the abdomen was sterilely prepped and draped I used a 5 mm Visiport superior and right of the umbilicus Clean access insufflated the abdomen there were adhesions of omentum to the anterior abdominal wall there were adhesions of multiple loops of sigmoid colon into the left pelvic sidewall into the pelvis placed a 5 mm port in the right lower quadrant and a 10 millimeter port in the right superior anterior iliac prominence I then transected the omental adhesions with Enseal the risk of the surgery was very tedious colon was densely adherent to itself into the pelvis using the Enseal using sharp scalpel dissection and another 5 mm port suprapubically was able to finally get the adhesions freed. Over an hour of dissection. Incised white line of Toldt up to the splenic flexure and mobilized the left colon. I then took the sigmoid mesentery flush with the sigmoid down to the rectosigmoid. If the patient were to need it even more progressive dissection because of her constipation I left the rectosigmoid and slightly long so it could be redone if needed. Hemostasis obtained throughout with the Enseal and with hemoclips were indicated. I had a significant mobilized piece of colon. I then made an extra 5 mm port in the left mid abdomen dissected the cecum pretty elevated the appendix made a window in the mesoappendix transected that with the Enseal. I used the Akins blue load to inspect the appendix flush with the cecum. I used the Akins gold loads with 2 loads to transect the rectosigmoid. I now made a mini Pfannenstiel incision cutting down through subcutaneous fat i ncising the rectus fascia anteriorly patient did have previous C-sections tissues were rather scarred Clean access placed a small wound protector removed the appendix is submitted to the specimen removed: Measured its length use of Yang transected it use a whip suture of 2-0 Prolene placed at 33 mm and 4 easily secured that and perform another whip suture to make sure it was snug. We did not tablet with Betadine due to the patient's allergy. That was dropped back within the abdomen. The wound protector was closed with a Dacron tape. To have some reinspected. I did a little bit more dissecting it. I would benefit to come out anterior portion of the rectum rather than pulling on the posterior aspect in his blood supply. Inserted 30 mm 3 mm stapler trocar without made it with a handful the 2 were approximated device was fired the donuts were then inspected they were completely intact there was insufflated and there was no air leak. The 10 mm trocar in the right lower quadrant was closed with a [id number] suture of 0 Vicryl. I had to add a couple extra because of the slight muscular bleeding vessel. Hemostasis was nicely intact at the end. Then rotated the patient up in reverse Trendelenburg and I did a bilateral transabdominal plane block. And we leveled the patient again. Wound protector was removed clean towels were placed. The pain is still was closed by approximate the peritoneum with a running 0 Vicryl and the fascia was closed with a running 0 PDS. Skin edges were approximated with interrupted or running 4-0 Monocryl. Steri-Strips Telfa OpSite dressings applied. Sponge and instrument and needle counts were reported to surgeon to be correct. Specimen left: And donuts and appendix. Blood loss 200 cc Drains none Patient was taken to recovery area in satisfied condition with apparent complication Surgeon: Carlos Armenta Type of Anesthesia: General and Local Anesthesiologist: Douglas Chowdhury
[2023-02-11 13:30] LABS: Bedside Glucose 209 mg/dL (74-106)
[2023-02-11] MEDS: Ketorolac 15 MG/ML Vial IV (18:28)
[2023-02-11] MEDS: Docusate Sodium 100 MG Capsule PO (23:05)
[2023-02-11] MEDS: levETIRAcetam 500 MG Tablet PO (23:05)
[2023-02-11] MEDS: Topiramate 100 MG Tablet PO (23:05)
[2023-02-11] MEDS: Senna/Docusate Sodium 1 Tablet 2 TABLET PO (23:06)
[2023-02-12] VITALS (8 sets, daily range): BP systolic 102–112; BP diastolic 58–66; PULSE 84–95; RESP 16–18; TEMP 36.7–37.2; O2SAT 95–97; BMI 32.5
[2023-02-12] MEDS: Levothyroxine 100 MCG Tablet PO (05:12)
--- NOTE | 2023-02-12 06:21 | NURSING ---
Pt ambulated well in the room with a walker. Pain managed. Refused scheduled Toradol. Weaned down 4L NC to room air. Oxygen maintained above 95%. Continuing to encourage IS and breathing treatments. Good urine output. Lap sites old, dry drainage. Tolerating liquids well. Bowel sounds active; has not passed gas yet.
[2023-02-12 06:43] LABS: Hematocrit 32.5 % (37-47); Hemoglobin 10.5 g/dL (12.0-15.0); Mean Corp Hgb Conc 32.3 g/dL (32-36); Mean Corpuscular Hgb 29.9 pg (27.0-32.0); Mean Corpuscular Volume 92.6 fL (81-99); Mean Platelet Vol. 9.3 fl (6.2-12.0); Platelet Count 175 K/mm3 (150-450); RBC Distribution Width SD 43.6 fl (35.1-43.9); Red Blood Count 3.51 M/mm3 (4.2-5.4)
[2023-02-12 07:07] LABS: Anion Gap 5 (5-15); BUN 12 mg/dL (7-18); Calcium,Total 7.9 mg/dL (8.5-10.1); Chloride 105 mmol/L (98-107); Creatinine, Serum 1.09 mg/dL (0.55-1.02); EST Glomerular Filtration Rate 54 mL/min (>60); Est Glom Filt Rate - Afr Amer 65 mL/min (>60); Estimated Creatinine Clearance 53.98 ml/min; Glucose 144 mg/dL (74-106); Potassium 3.2 mmol/L (3.5-5.1); Sodium Level 139 mmol/L (136-145)
--- NOTE | 2023-02-12 08:01 | PCM.PN.SRG ---
Subjective Subjective The patient is comfortable. She is not passing any flatus yet. Denies any nausea or vomiting. Objective Data Objective Data Vital Signs: Vital Signs Temp Pulse Resp BP Pulse Ox O2 Del Method O2 Flow Rate 98.7 F 95 18 112/61 96 Room Air 1 02/12/23 03:30 02/12/23 03:30 02/12/23 03:30 02/12/23 03:30 02/12/23 03:42 02/12/23 03:42 02/12/23 03:30 Oxygen Flow Rate (L/min) 1 Oxygen Delivery Method Room Air Weight: 213 lb 13.574 oz Body Mass Index (BMI) 32.5 Intake & Output: Intake and Output for Last 24 Hours 02/10/23 02/11/23 02/12/23 23:59 23:59 23:59 Intake Total 2752 / 2752 350 / 350 Output Total 1495 / 1495 400 / 400 Balance 1257 / 1257 -50 / -50 Lab / Micro Data 02/12/23 06:25 02/12/23 06:25 Labs: Laboratory Results - last 24 hr 02/11/23 13:02: POC Glucose 209 H 02/12/23 06:25: WBC 13.0 H, RBC 3.51 L, Hgb 10.5 L, Hct 32.5 L, MCV 92.6, MCH 29.9, MCHC 32.3, RDW Std Deviation 43.6, RDW Coeff of Andrew 13.0, Plt Count 175, MPV 9.3, Sodium 139, Potassium 3.2 L, Chloride 105, Carbon Dioxide 29.0, Anion Gap 5, BUN 12, Creatinine 1.09 H, Estim Creat Clear Calc 53.98, Est GFR (MDRD) Af Amer 65, Est GFR (MDRD) Non-Af 54 L, BUN/Creatinine Ratio 11.0, Glucose 144 H, Calcium 7.9 L Physical Exam Const oriented x3 and no apparent distress Resp normal respiratory effort GI soft to palpation Inspection: Negative for abdominal distention Assessment & Plan Assessment/Plan (1) Colon stricture: PLAN: Patient is postoperative day 1 from colonic resection and appendectomy. She seems to be comfortable. Awaiting bowel function before starting a diet. I will remove her Carbajal. Continue ambulation and incentive spirometer. Justyn Kaiser MD Pager: [facility] [address] [place] [address], [address] [place] [address] Office:
[2023-02-12] MEDS: Potassium Chloride 10mEq/100mL 10 MEQ/100 ML IV.SOLN. 100 MEQ IV BOLUS (10:08)
[2023-02-12] MEDS: Ensure Plus High Protein 120 ML LIQUID PO (10:20)
[2023-02-12] MEDS: Enoxaparin 40 MG/0.4 ML Syringe SC (10:21)
[2023-02-12] MEDS: Pantoprazole Sodium 40 MG Tablet PO (10:22)
[2023-02-12] MEDS: Multivitamin (Healthy Eyes) Capsule 1 CAP PO (10:22)
[2023-02-12] MEDS: Docusate Sodium 100 MG Capsule PO ×2 (10:22→21:00)
[2023-02-12] MEDS: Senna/Docusate Sodium 1 Tablet 2 TABLET PO ×2 (10:22→21:00)
[2023-02-12] MEDS: levETIRAcetam 500 MG Tablet PO ×2 (10:22→20:59)
[2023-02-12] MEDS: Topiramate 100 MG Tablet PO ×2 (10:23→21:00)
[2023-02-12] MEDS: DULoxetine Hcl 60 MG Capsule PO (10:23)
--- NOTE | 2023-02-12 10:47 | NURSING ---
Carbajal out, measuring hat in toilet, pt aware that will monitor output. Pt sat on edge of bed, dangled feet and then walked in the lima with this RN's assistance to Clio's desk and then back to her room. Now is sitting in the chair. Educated pt on sitting in chair and ambulating in lima at least 3 times a day if not more. Pt understands.
[2023-02-12] MEDS: Potassium Chloride 10mEq/100mL 10 MEQ/100 ML IV.SOLN. 8 MEQ IV BOLUS ×3 (11:51→17:01)
--- NOTE | 2023-02-12 12:31 | NURSING ---
Pt given gum to chew and educated the importance.
--- NOTE | 2023-02-12 12:45 | CASEMGMT ---
RN?CM?REDRYING MACHINE OPERATOR?CM?to room to meet with patient for initial transition planning/care coordination?assessment.?RN?CM?introduced self and role at [facility].? Pt voices understanding and consents to?assessment?at this time.? Pt sitting up in recliner chair in room in no distress at this time.? @ bedside. Pt is A/O at this time and answers all questions appropriately.?? Care providers, pharmacy, and demographics verified/updated at this time. PCP: Dr Hernandez Specialists: Dr Boyd Armenta-surgeon, Dr Harrell- neurology Preferred Pharmacy: [facility] Retail Insurance: [employer] Prescription Benefit:?Yes Living Will/HPOA:?Has both LW and HCPOA, who is her , Bear. LNOK: , Bear. Nichelle GABRIEL Living Arrangements: Lives w/her , son, NERY, and GD in raised-ranch home w/10 steps to enter w/rail. Pt states there is another entrance where there's only 3 steps to go up and her could drive through the yard to take her to those steps, if needed. Pt independent w/ADL's @ her baseline and pt and share home mgnt tasks. and other family members able to assist as needed. Transportation:?Pt states drives self and states no transportation concerns at this time.? also drives. DME: States has the following DME:? bath chair, cane, functioning glucometer w/supplies. Pt does not have a walker. Pt has been using a walker in her room and in hallway since surgery. She and both feel pt will get stronger each day and do not think she'll need a walker once she is medically ready to be discharged home. Pt and state no need for further DME at this time.? HHC/SNF: No hx of either. Denies need for HHC and no needs identified. Pt wishes to return home and states has no concerns with going home at time of discharge.? CM?to follow for any further discharge planning/needs.? Pt and voice no concerns/needs at this time.? Advised them to ask for?CM?if any further questions/concerns/needs arise.? They voice understanding. PLAN:??Home w/spousal support and discharge plans in place. Follow for possible walker. Freddy HARRISN?RN?CM
--- NOTE | 2023-02-12 13:05 | NURSING ---
Pt walked in the lima from her room in 321 down to 304 and then back to room. INDEPENDENT FILM MAKER states pt passed a large amt of flatus and had a small bm in the toilet.
[2023-02-12] MEDS: Acetaminophen 500 MG Tablet PO ×2 (13:17→23:27)
[2023-02-12 13:23] LABS: Bedside Glucose 119 mg/dL (74-106)
[2023-02-12] MEDS: HYDROmorphone 0.5 MG/0.5 ML SYRINGE IV (14:48)
--- NOTE | 2023-02-12 14:55 | NURSING ---
Pt c/o pain said she coughed and the pain did not go away. Tyelnol was given but still rates pain 7 out of 10. Dilaudid 0.5mg given at this time. Pt states she had total of two BM's today one earlier today was liquid. The 2nd BM she does not know if it was loose or liquid. Pt continues to sit in chair. This RN encouraged pt to keep using I.S and peep every1 hr.
--- NOTE | 2023-02-12 16:32 | DS.PCM_ITS ---
Documented by User: Lydia GONZALEZ PA-C 02/19/23 16:21 Providers Date of Admission: 02/11/23 Primary Care Physician: Dr. Juwan Hernandez MD Reason For Visit: Lap left Colectomy & lap appendecto Diagnosis Discharge Diagnosis (1) Colon stricture: Status: Resolved Code(s): K56.699 - Other intestinal obstruction unspecified as to partial versus complete obstruction Medications at Discharge Home Medications cholecalciferol (vitamin D3) 25 mcg (1,000 unit) tablet (Vitamin D3) 1,000 unit PO DAILY SUPPLEMENT 03/13/16 levothyroxine 125 mcg tablet 100 mcg PO DAILY HYPOTHYROID 03/13/16 [id number] 200 mcg-vit K 15 mcg-lycope 150 gjj-dswazw-rtyp tablet (Ocuvite Eye Plus Multi) 1 ea PO DAILY SUPPLEMENT 03/13/16 duloxetine 60 mg capsule,delayed release 1 capsule PO DAILY FIBROMYALGIA 10/24/16 acetaminophen 500 mg tablet 500 mg PO Q6H PRN PRN Pain 02/14/17 melatonin 10 mg tablet 10 mg PO QHS PRN Insomnia 02/14/17 topiramate 100 mg tablet 100 mg PO BID SEIZURES 02/14/17 levetiracetam 500 mg tablet 500 mg PO BID SEIZURES 07/28/22 pantoprazole 40 mg tablet,delayed release 40 mg PO DAILY GERD 07/28/22 coenzyme Q10 100 mg capsule (Co Q-10) 100 mg PO DAILY LIVER 01/05/23 semaglutide 0.25 mg or 0.5 mg (2 mg/3 mL) subcutaneous pen injector (Ozempic) 0.25 mg subcut QWEEK DIABETES TYPE 2 02/10/23 oxycodone 5 mg tablet 5 mg PO Q6H PRN PRN Pain Score 4-10 3 days #10 tabs 02/12/23 Hospital Course Summary of Care Provided Hospital Course: Patient was admitted after elective laparoscopic left colectomy and appendectomy and lysis of adhesions by Dr. Armenta on 02/11/23. Patient tolerated the procedure well. Following surgery the patient was slowly started on a diet and once mary grace ating diet she was discharged home. Upon discharge, patient tolerated transitional diet. She notes minimal amount of abdominal discomfort. She is passing flatus and having loose stools. She has met criteria for discharge. Weight / BMI Weight Weight: 213 lb 13.574 oz Body Mass Index (BMI) 32.5 ABG / Lab / Microbiology Data 02/12/23 06:25 02/12/23 06:25 Laboratory: Laboratory Results - last 24 hr 02/12/23 06:25: WBC 13.0 H, RBC 3.51 L, Hgb 10.5 L, Hct 32.5 L, MCV 92.6, MCH 29.9, MCHC 32.3, RDW Std Deviation 43.6, RDW Coeff of Andrew 13.0, Plt Count 175, MPV 9.3, Sodium 139, Potassium 3.2 L, Chloride 105, Carbon Dioxide 29.0, Anion Gap 5, BUN 12, Creatinine 1.09 H, Estim Creat Clear Calc 53.98, Est GFR (MDRD) Af Amer 65, Est GFR (MDRD) Non-Af 54 L, BUN/Creatinine Ratio 11.0, Glucose 144 H , Calcium 7.9 L 02/12/23 11:53: POC Glucose 119 H D/C Instructions Discharge Diet: Light diet - advance as tolerated (if you have questions about your diet instructions, please talk to you doctor.) May shower in (days): 1 Call your doctor if your incision/area has: Continuous Slow Oozing, Sudden Increased Bleeding, Increased Pain/ Swelling, Increased Redness and Foul Smell ing Discharge Call your doctor if you observe: Fever of 101 or Higher Suture Line Care: Avoid Pulling/Pushing and Avoid Pinching/Bending Additional Dressing/Incision Instructions: Change or remove dressing in 4 days. Leave steri-strips in place for 1 week. Please Follow Up With: Carlos Armenta MD When: Call [phone] to make an appointment to be seen in about 10 days. Meaningful Use Info Meaningful Use Diagnoses (Choose all that apply): None applicable Discharge Plan Admission Admit Date/Time: 02/11/23 05:10 Primary Reason for Your Visit: Chronic appendicitis and colonic stricture Attending Provider: Carlos Armenta Primary Care Provider: Juwan Hernandez Chi Instructions Additional Instructions / Restrictions: Recommend alternating between Tylenol 650 mg and ibuprofen 600 mg every 3 hours. For example: Tylenol at 0800, ibuprofen at 1200, Tylenol at 1500 (3pm), Ibuprofen at 1800 (6pm), etc. as needed for pain You may take oxycodone as needed for severe pain. This may have constipating effects. We prefer you to take Tylenol and Ibuprofen alternating. You will go home on the transitional diet: Transitional Diet Beverages: ? Soda (cola, diet cola, lemon-kletsel dehe wint[place], diet lemon-kletsel dehe wint[place], kellie christiano, diet kellie christiano) ? Tea (hot or iced) ? Milk (low-fat, 2%, lactose free) ? Coffee ? Juice (without pulp) ? Oral Nutrition supplement Breakfast: ? Hot cereal (oatmeal or cream of wheat) ? Scrambled eggs ? Blueberry muffin ? Cold cereal (no whole grain cereals) ? [place] (white) Lunch or Dinner: Deli Items: Hot Items: [place] sandwich Roast [place] Tuna salad (sandwich or alone) Macaroni & Cheese Egg salad (sandwich or alone) Mashed potatoes & gravy Chicken salad (sandwich or alone) Carrots Green beans Cold Sides: Soups: Cottage cheese Vegetable soup Yogurt Chicken noodle Hardboiled egg Dessert: ? Gelatin, pudding, side kick (juice slushie) Discharge Orders/Prescriptions Prescriptions: New oxycodone 5 mg Tablet 5 mg PO Q6H PRN PRN (Reason: Pain Score 4-10) 3 Days Qty: 10 0RF Continued levothyroxine 125 MCG tablet 100 mcg PO DAILY cholecalciferol (vitamin D3) [Vitamin D3] 1,000 UNIT tablet 1,000 unit PO DAILY Ocuvite Eye Plus Multi 1 EACH tablet 1 ea PO DAILY duloxetine 60 MG capsule,delayed release(DR/EC) 1 capsule PO DAILY acetaminophen 500 MG tablet 500 mg PO Q6H PRN PRN (Reason: Pain) topiramate 100 MG tablet 100 mg PO BID melatonin 10 MG tablet 10 mg PO QHS PRN (Reason: Insomnia) levetiracetam 500 mg tablet 500 mg PO BID pantoprazole 40 mg tablet,delayed release (DR/EC) 40 mg PO DAILY coenzyme Q10 [Co Q-10] 100 mg capsule 100 mg PO DAILY Ozempic 0.25 mg or 0.5 mg (2 mg/3 mL) pen injector 0.25 mg subcut QWEEK Patient Comments: patient takes on Mondays Discontinued metronidazole 500 mg tablet 500 mg PO DIRECTED Qty: 6 0RF Rx Instructions: Take 2 tabs PO at 1pm, 3pm, and 11pm the day before surgery neomycin 500 mg tablet 500 mg PO DIRECTED Qty: 6 0RF Rx Instructions: Take 2 tabs PO at 1pm, 3pm, and 11pm the day before surgery senna-docusate sodium Tablet 2 tab PO BID polyethylene glycol 3350 [Miralax] 17 gram/dose powder 17 g PO BID Other Ambulatory Orders: 12 Lead EKG (Routine) Timeframe: 20230209 Location: None Selected Ordered By: Dr. Carlos Armenta Referrals / Follow Up: Juwan Hernandez Chi, MD [Primary Care Provider] - Disposition Disposition (needs filled in before D/C Order can be placed): Home, Self Care Charges/Coding Visit Charges Inpatient E&M: 34681 Disch Hosp (No charge; post-op) Documented by User: Dr. Justyn Kaiser MD 02/13/23 15:04 Providers Date of Admission: 02/11/23 Reason For Visit: Lap left Colectomy & lap appendecto Diagnosis Discharge Diagnosis (1) Colon stricture: Status: Resolved Code(s): K56.699 - Other intestinal obstruction unspecified as to partial versus complete obstruction Medications at Discharge Home Medications cholecalciferol (vitamin D3) 25 mcg (1,000 unit) tablet (Vitamin D3) 1,000 unit PO DAILY SUPPLEMENT 03/13/16 levothyroxine 125 mcg tablet 100 mcg PO DAILY HYPOTHYROID 03/13/16 dkfihqhi-aez-IF 200 mcg-vit K 15 mcg-lycope 150 hno-xtofaa-ahup tablet (Ocuvite Eye Plus Multi) 1 ea PO DAILY SUPPLEMENT 03/13/16 duloxetine 60 mg capsule,delayed release 1 capsule PO DAILY FIBROMYALGIA 10/24/16 acetaminophen 500 mg tablet 500 mg PO Q6H PRN PRN Pain 02/14/17 melatonin 10 mg tablet 10 mg PO QHS PRN Insomnia 02/14/17 topiramate 100 mg tablet 100 mg PO BID SEIZURES 02/14/17 levetiracetam 500 mg tablet 500 mg PO BID SEIZURES 07/28/22 pantoprazole 40 mg tablet,delayed release 40 mg PO DAILY GERD 07/28/22 coenzyme Q10 100 mg capsule (Co Q-10) 100 mg PO DAILY LIVER 01/05/23 semaglutide 0.25 mg or 0.5 mg (2 mg/3 mL) subcutaneous pen injector (Ozempic) 0.25 mg subcut QWEEK DIABETES TYPE 2 02/10/23 oxycodone 5 mg tablet 5 mg PO Q6H PRN PRN Pain Score 4-10 3 days #10 tabs Hospital Course Operations appendectomy and colectomy Procedures None Summary of Care Provided Hospital Course: Patient was admitted after elective left colectomy and appendectomy. Patient tolerated the procedure well. Following surgery the patient was slowly started on a diet and once tolerating diet she was discharged home. ABG / Lab / Microbiology Data 02/12/23 06:25 02/12/23 06:25 D/C Instructions Lifting Restrictions: 15 lbs for 6 weeks Change Dressing in: 1 day (Remove Steri-Strips in 7 to 10 days) Cleanse incision/area with: Soap & Water Meaningful Use Info Meaningful Use Diagnoses (Choose all that apply): None applicable Discharge Plan Admission Admit Date/Time: 02/11/23 05:10 Primary Reason for Your Visit: Chronic appendicitis and colonic stricture Attending Provider: Carlos Armenta Primary Care Provider: Juwan Hernandez Chi Instructions Additional Instructions / Restrictions: Recommend alternating between Tylenol 650 mg and ibuprofen 600 mg every 3 hours. For example: Tylenol at 0800, ibuprofen at 1200, Tylenol at 1500 (3pm), Ibuprofen at 1800 (6pm), etc. as needed for pain You may take oxycodone as needed for severe pain. This may have constipating effects. We prefer you to take Tylenol and Ibuprofen alternating. You will go home on the transitional diet: Transitional Diet Beverages: ? Soda (cola, diet cola, lemon-kletsel dehe [place], diet lemon-kletsel dehe [place], kellie christiano, diet kellie christiano) ? Tea (hot or iced) ? Milk (low-fat, 2%, lactose free) ? Coffee ? Juice (without pulp) ? Oral Nutrition supplement Breakfast: ? Hot cereal (oatmeal or cream of wheat) ? Scrambled eggs ? Blueberry muffin ? Cold cereal (no whole grain cereals) ? [place] (white) Lunch or Dinner: Deli Items: Hot Items: [place] sandwich Roast [place] Tuna salad (sandwich or alone) Macaroni & Cheese Egg salad (sandwich or alone) Mashed potatoes & gravy Chicken salad (sandwich or alone) Carrots Green beans Cold Sides: Soups: Cottage cheese Vegetable soup Yogurt Chicken noodle Hardboiled egg Dessert: ? Gelatin, pudding, side kick (juice slushie) Discharge Orders/Prescriptions Prescriptions: New oxycodone 5 mg Tablet 5 mg PO Q6H PRN PRN (Reason: Pain Score 4-10) 3 Days Qty: 10 0RF Continued levothyroxine 125 MCG tablet 100 mcg PO DAILY cholecalciferol (vitamin D3) [Vitamin D3] 1,000 UNIT tablet 1,000 unit PO DAILY Ocuvite Eye Plus Multi 1 EACH tablet 1 ea PO DAILY duloxetine 60 MG capsule,delayed release(DR/EC) 1 capsule PO DAILY acetaminophen 500 MG tablet 500 mg PO Q6H PRN PRN (Reason: Pain) topiramate 100 MG tablet 100 mg PO BID melatonin 10 MG tablet 10 mg PO QHS PRN (Reason: Insomnia) levetiracetam 500 mg tablet 500 mg PO BID pantoprazole 40 mg tablet,delayed release (DR/EC) 40 mg PO DAILY coenzyme Q10 [Co Q-10] 100 mg capsule 100 mg PO DAILY Ozempic 0.25 mg or 0.5 mg (2 mg/3 mL) pen injector 0.25 mg subcut QWEEK Patient Comments: patient takes on Mondays Discontinued metronidazole 500 mg tablet 500 mg PO DIRECTED Qty: 6 0RF Rx Instructions: Take 2 tabs PO at 1pm, 3pm, and 11pm the day before surgery neomycin 500 mg tablet 500 mg PO DIRECTED Qty: 6 0RF Rx Instructions: Take 2 tabs PO at 1pm, 3pm, and 11pm the day before surgery senna-docusate sodium Tablet 2 tab PO BID polyethylene glycol 3350 [Miralax] 17 gram/dose powder 17 g PO BID Other Ambulatory Orders: 12 Lead EKG (Routine) Timeframe: 20230209 Location: None Selected Ordered By: Dr. Carlos D Cebul Referrals / Follow Up: Juwan Hernandez Chi, MD [Primary Care Provider] - Disposition Disposition (needs filled in before D/C Order can be placed): Home, Self Care
[2023-02-12 17:34] LABS: Bedside Glucose 117 mg/dL (74-106)
[2023-02-12] MEDS: Lactated Ringers 1,000 ML 75 ML IV (18:23)
[2023-02-12] MEDS: oxyCODONE 5 MG Tablet PO (21:02)
[2023-02-13 00:30] LABS: Bedside Glucose 149 mg/dL (74-106)
[2023-02-13 02:09] VITALS: BP 129/74; PULSE 85; RESP 16; TEMP 36.4; O2SAT 98
[2023-02-13] MEDS: Ensure Plus High Protein 120 ML LIQUID PO ×2 (02:18→10:19)
[2023-02-13] MEDS: oxyCODONE 5 MG Tablet PO ×2 (02:18→13:30)
[2023-02-13] MEDS: Levothyroxine 100 MCG Tablet PO (05:07)
[2023-02-13] MEDS: Lactated Ringers 1,000 ML 75 ML IV (07:01)
[2023-02-13 07:42] VITALS: O2SAT 92
--- NOTE | 2023-02-13 08:24 | PN.SURG_ITS ---
Subjective Subjective Patient tolerated full liquids yesterday with no nausea or vomiting. She did have 2 liquid bowel movements yesterday and a liquid bowel movement this morning. She reports her pain is minimal and only really happens when she is cramping before going to the bathroom Objective Data Objective Data Vital Signs: Vital Signs Temp Pulse Resp BP Pulse Ox O2 Del Method O2 Flow Rate 97.5 F L 85 16 129/74 H 98 Room Air 2 02/13/23 02:09 02/13/23 02:02/13/23 02:02/13/23 02:02/13/23 02:02/13/23 02:02/12/23 08:33 Oxygen Flow Rate (L/min) 2 Oxygen Delivery Method Room Air Weight: 213 lb 13.574 oz Body Mass Index (BMI) 32.5 Intake & Output: Intake and Output for Last 24 Hours 02/11/23 02/12/23 02/13/23 23:59 23:59 23:59 Intake Total 2752 / 2752 1830.61 / 2130.61 1447.5 / 1447.5 Output Total 1495 / 1495 1550 / 1850 300 / 300 Balance 1257 / 1257 280.61 / 280.61 1147.5 / 1147.5 Lab / Micro Data 02/12/23 06:25 02/12/23 06:25 Labs: Laboratory Results - last 24 hr 02/12/23 11:53: POC Glucose 119 H 02/12/23 17:05: POC Glucose 117 H 02/12/23 21:11: POC Glucose 149 H Assessment & Plan Assessment/Plan (1) Colon stricture: PLAN: Patient is doing well and tolerating full liquid diet. I have advanced her diet to transitional today and stopped her IV fluids. If she tolerates regular diet I will discharge her home later today. Justyn Kaiser MD Pager: [facility] [address] [place] [address], [address] [place] [address] Office:
[2023-02-13 10:08] VITALS: BP 129/63; PULSE 90; RESP 18; TEMP 36.9; O2SAT 95
[2023-02-13] MEDS: Enoxaparin 40 MG/0.4 ML Syringe SC (10:19)
[2023-02-13] MEDS: Senna/Docusate Sodium 1 Tablet 2 TABLET PO (10:19)
[2023-02-13] MEDS: Topiramate 100 MG Tablet PO (10:19)
[2023-02-13] MEDS: levETIRAcetam 500 MG Tablet PO (10:19)
[2023-02-13] MEDS: Pantoprazole Sodium 40 MG Tablet PO (10:19)
[2023-02-13] MEDS: DULoxetine Hcl 60 MG Capsule PO (10:19)
[2023-02-13] MEDS: Multivitamin (Healthy Eyes) Capsule 1 CAP PO (10:19)
[2023-02-13] MEDS: Docusate Sodium 100 MG Capsule PO (10:19)
--- NOTE | 2023-02-13 11:30 | CASEMGMT ---
REBECCA VINCENT NOTE: RN CM to room. Pt sitting up in chair in room. Pt states she has continued to use the walker here @ [facility] and thinks she will need to use one for a little while once returning home. She states she does not need CM to get her one @ d/c, though, as her [facility] has one she is going to borrow. She states her will assist her w/getting into her home @ d/c and denies having any d/c planning needs or concerns. Freddy ROSA RN CM
[2023-02-13 14:45] VITALS: BP 124/70; PULSE 88; RESP 18; TEMP 36.7; O2SAT 96
== END 2023-02-13 15:53 | disposition home or self-care (01) | DRG 331 ==
LOC: ACINP 05:14 → MS3 12:40
PROVIDERS: Anesthesiology; Admitting Provider Surgery; PCP Family Medicine Geriatric Medicine; Referring Provider Surgery; Visit Provider Surgery
PROC: 0DTN0ZZ Resection of Sigmoid Colon, Open Approach (ICD-10-PCS; CPT 44204; principal; 2023-02-11 07:05)
DX: K56.50 Intestinal adhesions [bands], unspecified as to partial versus complete obstruction (principal); E03.9 Hypothyroidism, unspecified; E11.9 Type 2 diabetes mellitus without complications; G35 Multiple sclerosis; E78.00 Pure hypercholesterolemia, unspecified; K64.9 Unspecified hemorrhoids; G47.30 Sleep apnea, unspecified; K21.9 Gastro-esophageal reflux disease without esophagitis; K59.09 Other constipation; K57.30 Diverticulosis of large intestine without perforation or abscess without bleeding; K36 Other appendicitis; Z90.49 Acquired absence of other specified parts of digestive tract; Z79.85 Long-term (current) use of injectable non-insulin antidiabetic drugs; Z79.899 Other long term (current) drug therapy; Z86.010 Personal history of colon polyps
CPT/HCPCS: 36415; 80048; 80053; 82962; 83036; 83735; 84443; 85025; 85027; 85730; 88302; 88304; 88309; 93005; 94668; 99252; J7120; A4648; C1760; G0463; J2405; J3475; J3490

== ENCOUNTER → 2023-03-16 | Outpatient (CLI) | payer MEDICARE, SELFPAY ==
[2023-03-16 14:58] LABS: Bacteria 0 SEEN /hpf (None Seen); Red Blood Cells-Urine 0 SEEN /hpf (0-5); Squamous Epithelial Cells - UA 0 SEEN /hpf (5-10); White Blood Cells 0 SEEN /hpf (0-5)
[2023-03-16 15:07] LABS: Color, Urine Yellow (Yellow); Glucose, Dipstick Normal (Normal); Ketone-Dipstick 5 mg/dl (Negative); Leukocyte Esterase-Dipstick Negative /ul (Negative); Nitrite-Dipstick Negative (Negative); Occult Blood-Urine Negative /ul (Negative); Protein-Dipstick 15 mg/dl (Negative); Specific Gravity, Urine 1.025 (1.002-1.030); Urine Clarity Clear (Clear); Urine Urobilinogen 1 mg/dl (Normal)
[2023-03-16 15:12] LABS: Urine Bilirubin Dipstick 1 mg/dL (Negative)
[2023-03-16 15:26] LABS: Mucous, Urine 2+ /hpf (<or=2+)
== END | disposition home or self-care (01) ==
LOC: LABSPEC 14:11
PROVIDERS: PCP Family Medicine Geriatric Medicine; Referring Provider Surgery; Visit Provider Surgery
DX: R93.89 Abnormal findings on diagnostic imaging of other specified body structures (principal)
CPT/HCPCS: 81001

== ENCOUNTER → 2023-04-21 | Outpatient (CLI) | payer MEDICARE, SELFPAY ==
--- NOTE | 2023-04-21 12:48 | BI_ITS ---
MAMMOGRAPHY - BILATERAL SCREENING 3-D TOMOSYNTHESIS REASON FOR EXAM: Female, 62 years old. SCREENING PERTINENT HISTORY: No significant family history. TECHNIQUE: 2-D mammograms and 3-D Tomosynthesis of the breast (s) were performed. CAD was performed. COMPARISON: 02/03/2022 FINDINGS: The breast composition is composed of scattered fibroglandular density. Scattered benign calcifications are seen. No dense spiculated masses or suspicious microcalcifications are identified. No architectural distortion is identified. There is no skin thickening or retraction. There has been no significant change since the prior study. BI/SCRN MAMM (CAD)W/PEG BILAT IMPRESSION: No mammographic signs of malignancy. Routine yearly mammograms recommended. ASSESSMENT CATEGORY: BIRADS Category 1: Negative. A letter regarding these results will be sent to the patient by the facility within 30 days. FOLLOW UP RECOMMENDATION: Yearly follow up mammogram recommended. (A) Approximately 10% of breast cancers are not detected by mammography. A normal mammogram should not delay biopsy of a clinically suspicious abnormality. Electronically Signed: Alex Maldonado MD at 13:19 EDT ,
== END | disposition home or self-care (01) ==
LOC: OPBI 12:47
PROVIDERS: PCP Family Medicine Geriatric Medicine; Referring Provider Family Medicine Geriatric Medicine; Visit Provider Family Medicine Geriatric Medicine
DX: Z12.31 Encounter for screening mammogram for malignant neoplasm of breast (principal)
CPT/HCPCS: 77063; 77067

== ENCOUNTER → 2023-05-21 | Outpatient (CLI) | payer MEDICARE, SELFPAY ==
--- NOTE | 2023-05-21 16:27 | RAD_ITS ---
STUDY: X-RAY CHEST REASON FOR EXAM: Female, 62 years old. CONGESTION TECHNIQUE: Frontal and lateral views of the chest. COMPARISON: February 23, 2022 FINDINGS: Surgical clips left anterior chest. Left lower lobe infiltrates. There is no demonstrated pleural abnormality. Normal size heart. Normal mediastinum and donald. Normal visualized pulmonary arteries. Normal visualized aortic arch and descending thoracic aorta. Normal visualized thoracic spine. Normal visualized ribs, clavicles, and shoulders. There is no demonstrated abnormality of the visualized soft tissue structures of the upper abdomen. RAD/Chest PA and Lateral IMPRESSION: New left lower lobe infiltrates Electronically Signed: William Esteban MD at 0:14 EST ,
[2023-05-21 17:24] LABS: Lactic Acid 1.4 mmol/L (0.4-1.9)
[2023-05-21 17:39] LABS: Anion Gap 6 (5-15); BUN 15 mg/dL (7-18); BUN/Creat Ratio 15.7 RATIO (10-20); CRP 7.58 mg/L (0.0-3.0); Calcium,Total 8.9 mg/dL (8.5-10.1); Chloride 106 mmol/L (98-107); Creatinine, Serum 0.96 mg/dL (0.55-1.02); EST Glomerular Filtration Rate 63 mL/min (>60); Est Glom Filt Rate - Afr Amer 76 mL/min (>60); Glucose 140 mg/dL (74-106); Potassium 3.6 mmol/L (3.5-5.1); Sodium Level 140 mmol/L (136-145)
[2023-05-21 18:01] LABS: Absolute Lymphocyte Count 2.99 X10^3/uL (0.83-4.51); Basophil# 0.08 X10^3/uL; Basophil% 0.7 % (0-1); Eosinophil# 0.31 X10^3/uL; Eosinophils% 2.7 % (0-5); Hematocrit 43.4 % (37-47); Lymphocyte # 2.99 X10^3/ul (0.83-4.51); Lymphocyte % 26.4 % (19-41); Mean Corpuscular Hgb 27.7 pg (27.0-32.0); Mean Corpuscular Volume 92.3 fL (81-99); Mean Platelet Vol. 10.4 fl (6.2-12.0); Monocyte# 0.86 X10^3/uL; Monocyte% 7.6 % (0-10); NRBC Flagged by Analyzer 0 % (0-5); Neutrophil # 7.04 X10^3/uL (2.7-7.7); Neutrophil % 62.2 % (47-70); Platelet Count 245 K/mm3 (150-450); RBC Distribution Width CV 13.3 % (11.6-14.6); RBC Distribution Width SD 44.3 fl (35.1-43.9); White Blood Count 11.3 K/mm3 (4.4-11.0)
[2023-05-21 18:18] LABS: Erythrocyte Sedimentation Rate 13 mm/hr (0-30)
== END | disposition home or self-care (01) ==
PROVIDERS: PCP Family Medicine Geriatric Medicine; Referring Provider Family Medicine Geriatric Medicine; Visit Provider Family Medicine Geriatric Medicine
DX: R06.02 Shortness of breath (principal); R53.83 Other fatigue; J98.8 Other specified respiratory disorders
CPT/HCPCS: 36415; 71046; 80048; 83605; 85025; 85652; 86140

== ENCOUNTER → 2023-05-22 | Outpatient (CLI) | payer MEDICARE, SELFPAY | END | disposition home or self-care (01) | PROVIDERS: PCP Family Medicine Geriatric Medicine; Referring Provider Family Medicine Geriatric Medicine; Visit Provider Family Medicine Geriatric Medicine | DX: R68.83 Chills (without fever) (principal) | CPT/HCPCS: 87635; 87804; 87807; C9803 ==

== ENCOUNTER → 2023-06-01 | Outpatient (CLI) | payer MEDICARE, SELFPAY ==
--- NOTE | 2023-06-01 11:51 | NM_ITS ---
CLINICAL: 62-year-old male with history of shortness of breath. VENTILATION-PERFUSION LUNG SCINTIGRAPHY COMPARISON: Plain film chest radiograph report 06/01/2023 FINDINGS: The patient was administered 50.0 mCi 99m Tc DTPA aerosol. The aerosol ventilation study demonstrates normal ventilation defined in the bilateral lung dickerson. No segmental or subsegmental ventilatory defects are identified. There is no central clumping of the aerosol visualized. Following the intravenous administration of 5.6 mCi of 99m Tc MAA, the pulmonary perfusion study reveals uniform perfusion throughout both lung dickerson. There are no segmental or subsegmental perfusion defects consistently identified on review of sequential acquisitions-projections. NM/Lung Scan Vent/Perf IMPRESSION: 1. NORMAL 99m Tc DTPA aerosol ventilation/Tc 99m MAA pulmonary perfusion imaging examination, according to PIOPED II interpretive criteria. (Sotsman et al, Radiology 246: 941, 2008 Sosalma et al, J Nucl Med 49: 1741, 2008). Electronically Signed: Alex Patel DO at 14:40 EST ,
--- NOTE | 2023-06-01 12:35 | RAD_ITS ---
STUDY: X-RAY CHEST REASON FOR EXAM: Female, 62 years old. Correlate with ventilation perfusion scan. TECHNIQUE: Frontal and lateral views of the chest. COMPARISON: May 21, 2023. FINDINGS: The lungs are clear and expanded. There is no demonstrated pleural abnormality. Normal size heart. Normal mediastinum and donald. Normal visualized pulmonary arteries. Normal visualized aortic arch and descending thoracic aorta. Thoracic spondylosis. Normal visualized ribs, clavicles, and shoulders. Stable clips projected over the left breast and cholecystectomy clips. No abnormality of the visualized soft tissue structures of the upper abdomen. RAD/Chest PA and Lateral IMPRESSION: Stable chest with no acute or active cardiopulmonary disease. Electronically Signed: Wade Multani MD at 13:44 EST ,
== END | disposition home or self-care (01) ==
PROVIDERS: PCP Family Medicine Geriatric Medicine; Referring Provider Family Medicine Geriatric Medicine; Visit Provider Family Medicine Geriatric Medicine
DX: R06.02 Shortness of breath (principal)
CPT/HCPCS: 71046; 78582; A9540; A9567

== ENCOUNTER → 2023-06-02 | Outpatient (CLI) | payer MEDICARE, SELFPAY ==
[2023-06-02 14:37] LABS: Absolute Lymphocyte Count 2.46 X10^3/uL (0.83-4.51); Absolute Neutrophil Count 8.8 X10^3/uL (2.0-7.7); Basophil# 0.05 X10^3/uL; Basophil% 0.4 % (0-1); Hematocrit 45.3 % (37-47); Hemoglobin 13.9 g/dL (12.0-15.0); Lymphocyte # 2.46 X10^3/ul (0.83-4.51); Lymphocyte % 20.1 % (19-41); Mean Corp Hgb Conc 30.7 g/dL (32-36); Mean Corpuscular Hgb 28.1 pg (27.0-32.0); Mean Corpuscular Volume 91.5 fL (81-99); Mean Platelet Vol. 9.8 fl (6.2-12.0); Monocyte# 0.83 X10^3/uL; Monocyte% 6.8 % (0-10); NRBC Flagged by Analyzer 0 % (0-5); Neutrophil # 8.78 X10^3/uL (2.7-7.7); Neutrophil % 71.9 % (47-70); Platelet Count 246 K/mm3 (150-450); RBC Distribution Width CV 13.2 % (11.6-14.6); RBC Distribution Width SD 44.2 fl (35.1-43.9); Red Blood Count 4.95 M/mm3 (4.2-5.4); White Blood Count 12.2 K/mm3 (4.4-11.0)
[2023-06-02 15:08] LABS: ALB/GLOB Ratio 0.9 RATIO (0.9-2.4); AST(SGOT) 7 U/L (15-37); Alanine Aminotransfer ALT/SGPT 19 U/L (13-56); Albumin, Serum 3.5 g/dL (3.2-5.0); Alkaline Phosphatase 96 U/L (45-117); Anion Gap 7 (5-15); BUN 16 mg/dL (7-18); BUN/Creat Ratio 17.4 RATIO (10-20); Calcium,Total 8.5 mg/dL (8.5-10.1); Chloride 105 mmol/L (98-107); Cholesterol 252 mg/dL (200); Creatinine, Serum 0.92 mg/dL (0.55-1.02); EST Glomerular Filtration Rate 65 mL/min (>60); Est Glom Filt Rate - Afr Amer 79 mL/min (>60); Globulin 3.9 g/dL (2.2-4.2); Glucose 138 mg/dL (74-106); High Density Lipoprotein 61 mg/dL; Potassium 3.8 mmol/L (3.5-5.1); Protein, Total 7.4 g/dL (6.4-8.2); Sodium Level 141 mmol/L (136-145); Thyroid Stim Hormone (TSH) 9.08 uIU/mL (0.358-3.74); Triglycerides 277 mg/dL; Very Low Density Lipoprotein 55 mg/dL (5-40)
== END | disposition home or self-care (01) ==
LOC: POLAB3 13:28
PROVIDERS: PCP Family Medicine Geriatric Medicine; Visit Provider Family Medicine Geriatric Medicine
DX: E11.65 Type 2 diabetes mellitus with hyperglycemia (principal); R53.83 Other fatigue
CPT/HCPCS: 36415; 80053; 80061; 84443; 85025

== ENCOUNTER → 2023-07-31 | Outpatient (CLI) | payer MEDICARE, SELFPAY ==
--- OUTSIDE RECORDS SUMMARY | 2023-07-31 11:12 | XMS RPT_ITS | CCD ---
Author Name Unknown Address [id number] [place] [address] Organization [facility] Care Team Providers Care Mill Tender Name Role Phone CARI NEWSOME DR Unavailable Unavailable CARI NEWSOME DR Unavailable Unavailable CARI NEWSOME DR Unavailable Unavailable GORE, HAILEE A Unavailable Unavailable PROVIDER, UNKNOWN Unavailable Unavailable PROVIDER, UNKNOWN Unavailable Unavailable PROVIDER, UNKNOWN Unavailable Unavailable CARI NEWSOME DR Unavailable Unavailable CARI NEWSOME DR Unavailable Unavailable CRAI NEWSOME DR Unavailable Unavailable GORE, HAILEE A Unavailable Unavailable PROVIDER, UNKNOWN Unavailable Unavailable PROVIDER, UNKNOWN Unavailable Unavailable PROVIDER, UNKNOWN Unavailable Unavailable CARI NEWSOME DR Unavailable Unavailable CARI NEWSOME DR Unavailable Unavailable CARI NEWSOME DR Unavailable Unavailable GORE, HAILEE A Unavailable Unavailable PROVIDER, UNKNOWN Unavailable Unavailable PROVIDER, UNKNOWN Unavailable Unavailable PROVIDER, UNKNOWN Unavailable Unavailable PHYSICIAN, NONE Primary Care Physician Unavailab Rivera Randolph Unavailable Unavailable Laya MOULTON, Sowmya Primary Care Provider OLMAN MOULTON, CARLOS Attending Unavailable PHYSICIAN, NONE Primary Care Unavailable Allergies Allergy Classification Reported Allergen(s) Allergy Type Date of Onset Reaction(s) Facility (1 source) meperidine Drug Allergy [facility] (1 source) DARVOCET-N 100 Drug allergy (disorder) [facility] (2 sources) tea tree topical; Translations: [tea tree topical] Allergy to substance [facility] (2 sources) Perfume Allergy to substance Melaleuca alternifolia oil (substance) [facility] (1 source) azaTHIOprine Drug Allergy 7 Rash [facility] Work Phone: (1 source) Duran seal root Drug Allergy 6 Hives [facility] (1 source) Iodine Drug Allergy 9 Other: See Comments [facility] (1 source) Meperidine Drug Allergy 6 [facility] Work Phone: (1 source) POISON MAXIME EXTRACT Drug Allergy Rash, Swelling, Itching [facility] (1 source) Propoxyphene Drug Allergy 4 [facility] (1 source) Tea Tree Oil Drug Allergy 6 Other: See Comments [facility] (1 source) Perfumes Propensity to adverse reactions 6 Intolerance [facility] Work Phone: Medications Current Medications Medication Drug Class(es) Dates Sig (Normalized) Sig (Original) 20/20 Tears ophthalmic solution (2 sources) Start: 07-10-2015 take 1 dose into the eye(s) twice daily as needed 20/20 Tears ophthalmic solution Dose = 2 drop(s), Ophthalmic, BID, PRN for dry eyes, # 30 mL, 0 Refill(s) Start Date: 07/10/15 Status: Ordered atorvastatin 20 mg oral tablet (2 sources) HMG-CoA Reductase Inhibitor Start: 07-10-2015 Lipitor 20 mg oral tablet Dose : 20 mg = 1 tab(s), Oral, Daily, # 30 tab(s), 0 Refill(s) Start Date: 07/10/15 Status: Ordered 12 hr buPROPion hydrochloride 90 mg / naltrexone hydrochloride 8 mg extended release oral tablet (2 sources) Opioid Antagonist, Aminoketone Start: 07-07-2015 take 1 tablet by mouth twice daily Contrave 8 mg-90 mg oral tablet, extended release Dose = 2 tab(s), Oral, BID, # 30 tab(s), 0 Refill(s) Start Date: 07/07/15 Status: Ordered Discharge/Home Med (4 sources) Start: 07-10-2015 Discharge/Home Med Oral, 0 Refill(s) Start Date: 07/10/15 Status: Ordered metFORMIN hydrochloride 500 mg oral tablet (2 sources) Biguanide Start: 07-07-2015 metFORMIN 500 mg oral tablet, extended release Dose : 500 mg = 1 tab(s), Oral, BID, # 30 tab(s), 0 Refill(s) Start Date: 1/2/16 Status: Ordered Completed/Discontinued Medications Medication Drug Class(es) Dates Sig (Normalized) Sig (Original) acetaminophen 500 mg oral tablet (1 source) acetaminophen (T YLENOL) 500 mg tablet Take 500 mg by mouth as needed. 0 Active Problems Active Problems Problem Classification Problem Date Documented Da te Episodic/Chronic Diabetes mellitus without complication (1 source) Type 2 diabetes mellitus; Translations: [Type 2 diabetes mellitus without complications] Onset: 11-25-2017 08-31-2019 Chronic Disorders of lipid metabolism (1 source) Mixed hyperlipidemia; Translations: [Mixed hyperlipidemia] Onset: 06-20-2006 06-20-2006 Chronic Mood disorders (1 source) Depressive disorder; Translations: [Depression] Onset: 01-21-2017 08-31-2019 Chronic Other and unspecified benign neoplasm (1 source) History of polyp of colon; Translations: [Personal history of colonic polyps] 07-22-2005 Episodic Other nutritional; endocrine; and metabolic disorders (1 source) Metabolic syndrome X; Translations: [Metabolic syndrome] Onset: 06-20-2006 06-20-2006 Chronic Other nutritional; endocrine; and metabolic disorders (1 source) Body mass index 30+ - obesity; Translations: [Obesity, unspecified] Onset: 11-25-2017 08-31-2019 Chronic Other screening for suspected conditions (not mental disorders or infectious disease) (2 sources) Patient encounter status; Translations: [Encounter for screening mammogram for malignant neoplasm of breast] Onset: 06-20-2006 Episodic Shima-; endo-; and myocarditis; cardiomyopathy (except that caused by tuberculosis or sexually transmitted disease) (1 source) Acute idiopathic pericarditis; Translations: [Acute nonspecific idiopathic pericarditis] 07-22-2005 Episodic Residual codes; unclassified (1 source) Sleep apnea; Translations: [Sleep apnea, unspecified] Onset: 10-08-2005 08-31-2019 Chronic Thyroid disorders (1 source) Hypothyroidism; Translations: [Hypothyroidism, unspecified] Onset: 11-25-2017 08-31-2019 Chronic Unclassified (1 source) PMH - PAST MEDICAL HISTORY OF 07-22-2005 Past or Other Problems Problem Classification Problem Date Documented Da te Episodic/Chronic Diabetes mellitus without complication (1 source) Steroid-induced hyperglycemia; Translations: [Hyperglycemia, unspecified] Onset: 11-25-2017 11-25-2017 Episodic Epilepsy; convulsions (1 source) Neurological finding; Translations: [Unspecified convulsions] Onset: 12-06-2018 08-31-2019 Episodic Genitourinary symptoms and ill-defined conditions (1 source) Dysuria; Translations: [Dysuria] Onset: 06-20-2006 06-20-2006 Episodic Other connective tissue disease (1 source) Muscle pain; Translations: [Myalgia and myositis, unspecified] Onset: 06-19-2004 06-19-2004 Episodic Other connective tissue disease (1 source) Fibromyalgia; Translations: [Fibromyalgia] Onset: 07-23-2019 08-31-2019 Episodic Other fractures (3 sources) Displaced fracture of shaft of right clavicle, subsequent encounter for fracture with routine healing; Translations: [Displaced fracture of shaft of right clavicle, subsequent encounter for fracture with routine healing] Onset: 06-05-2017 Episodic Other nervous system disorders (1 source) Familial recurrent peripheral facial palsy; 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] Onset: 03-12-2016 03-12-2016 Episodic Other nervous system disorders (2 sources) Magnetic resonance imaging of brain abnormal; Translations: [White matter disease, unspecified] Onset: 04-14-2016 08-31-2019 Episodic Other nervous system disorders (1 source) Burns's palsy; 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] Onset: 07-23-2019 08-31-2019 Episodic Sprains and strains (4 sources) Unspecified sprain of left shoulder joint, subsequent encounter; Translations: [Unspecified sprain of left shoulder joint, initial encounter] Onset: 03-04-2017 Episodic Results Test Name Value Interpretation Reference Range Facil ity Encounters Encounter Date Encounter Type Care Provider Facility Start: 09-19-2022 End: 09-20-2022 ambulatory CARLOS THURMAN MD Facility:B Start: 09-19-2022 End: 09-19-2022 Patient encounter procedure CARLOS THURMAN MD [facility] Start: 01-01-2022 ambulatory Sowmya Ruiz Work Phone: Internal Medicine [facility] [place] Start: 05-22-2021 End: 05-22-2021 Patient encounter procedure CARLOS THURMAN MD [facility] Start: 06-05-2017 End: 10-01-2017 Ambulatory [facility]I [facility] Start: 04-23-2017 Ambulatory CARI Hernandez [facility] Start: 03-04-2017 End: 06-04-2017 Ambulatory CARI Georges [facility] Procedures Date Procedure Procedure Detail Performing Clinician Start: 03-15-2019 Colonoscopy Sowmya lux MD Work Phone: Start: 11-10-2017 Mammography Sowmya lux MD Work Phone: Arthropathy of knee joint (disorder) CARLOS THURMAN MD Dental aid (physical object) CARLOS THURMAN MD Gallbladder structur e (body structure) CARLOS THURMAN MD Hysterectomy CARLOS THURMAN MD Tonsillectomy primary/secondary age 12/> CARLOS THURMAN MD Plan of Treatment Date Care Activity Detail Author Start: 05-03-2024 Urine microalbumin profile DTAP,TDAP,TD (2 - Td or Tdap) [facility] Start: 03-15-2024 Colonoscopy COLONOSCOPY [facility] Start: 03-15-2024 COLORECTAL CANCER SCREENING COLORECTAL CANCER SCREENING [facility] Start: 03-06-2022 Influenza vaccination INFLUENZA (#1) [facility] Start: 08-01-2021 3 comp foot exam completed DIABETIC FOOT EXAM [facility] Start: 08-01-2021 ANNUAL PCP TEAM CHRONIC DISEASE VISIT ANNUAL PCP TEAM CHRONIC DISEASE VISIT [facility] Start: 05-07-2021 Hepatitis C antibody, confirmatory test DILATED RETINAL EXAM [facility] Start: 04-24-2021 Hepatitis B surface antibody level LDL CHOLESTEROL [facility] Start: 10-23-2020 Hemoglobin A1c/Hemoglobin.total in Blood HBA1C [facility] Start: 01-08-2019 Hepatitis B screening URINE ALBUMIN:CREATININE RATIO [facility] Start: 11-10-2018 Mammography MAMMOGRAM [facility] Start: 2010 SHINGRIX VACCINE (1 of 2) SHINGRIX VACCINE (1 of 2) [facility] Start: 2005 COLOGUARD (FIT-DNA) COLOGUARD (FIT-DNA) [facility] Start: [address] COLONOGRAPHY [facility] Start: 2005 FECAL OCCULT BLOOD FECAL OCCULT BLOOD [facility] Start: 2005 SIGMOIDOSCOPY SIGMOIDOSCOPY [facility] Start: 1966 PNEUMOCOCCAL (1 - PCV) PNEUMOCOCCAL (1 - PCV) [facility] Start: 1960 COVID-19 VACCINE (#1) COVID-19 VACCINE (#1) [facility] End: 01-31-2023 Screening mammography bi 2-view breast inc cad VALENTIN SCREENING Radiology Routine Encounter for screening mammogram for breast cancer 1 Occurrences starting 01/01/2022 until 01/31/2023 [facility] Work Phone: Immunizations Immunization Date Immunization Notes Care Provider [facility] 04-25-2015 influenza, seasonal, injectable Sowmya Hollingsworth MD Work Phone: [facility] 04-23-2015 influenza, injectabl e, quadrivalent, contains preservative Sowmya Hollingsworth MD Work Phone: [facility] 05-03-2014 tetanus toxoid, redu steven diphtheria toxoid, and acellular pertussis vaccine, adsorbed Sowmya Hollingsworth MD Work Phone: [facility] Payers Date Payer Category Payer Private Health Insurance [id number] 1960 Unknown [id number] Unknown [id number] Social History Date Type Detail Facility Never smoked tob acco (finding) [facility] Sex Assigned At [facility] Start: 10-17-2020 Alcohol intake 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 (finding) [facility] Start: 11-21-2019 End: 07-26-2020 History SDOH Alcohol Frequency 1 [facility] Start: 11-21-2019 History SDOH Alcohol Std Drinks 98 [facility] Start: 08-08-2015 History SDOH Alcohol Comment occasional [facility] Start: 04-24-2020 End: 07-26-2020 History SDOH Social Connections Phone 2 [facility] Start: 11-21-2019 End: 04-24-2020 History SDOH Social Connections Meetings 3 [facility] Start: 11-21-2019 History SDOH Physica l Activity DPW 0 [facility] Start: 04-24-2020 History SDOH Financial 4 [facility] Start: 11-21-2019 Education 15 [facility] Start: 1960 Sex Assigned At [facility] Procedure Code Equipment Code Equipment Origin al Text Equipment Identifier Dates Start: 11-23-2019 Clinical Note 12-10-2022 Note Date & Type Note Facility 12-10-2022 Note Patient Outreach (IN TMMN) MARIE FISHER ([id number]) 1960 F Date Time Provider Department 12/10/22 SOWMYA HOLLINGSWORTH During your visit today, we recorded the following information about you: Allergies As of Date: 12/10/2022 Noted Allergy Reaction DEMEROL (MEPERIDINE (PF)) 10/21/2005 IMURAN (AZATHIOPRINE SODIUM) 10/29/2016 2 - Rash Comments: Rash, joint pain, swelling, fever PERFUMES 09/03/2005 5 - Intolerance PROPOXYPHENE 06/19/2004 Comments: darvocet GOLDENSEAL ROOT 08/08/2015 4 - Hives IODINE 02/03/2019 14 - Other: See Comments Comments: Pt got very nauseated upon iv injection today,ok with oral contrast. kmr POISON MAXIME EXTRACT 2 - Rash 7 - Swelling 9 - Itching TEA TREE OIL 08/08/2015 14 - Other: See Comments Comments: Blisters Date Reviewed: 10/17/2020 Reviewed by: Neelam Molina - Fully Assessed Visit Diagnosis:Encounter for screening mammogram for breast cancer [Z12.31] Order(s):[facility] SCREENING [[id number]] Order #: [id number] FUTURE Prescriptions as of 12/15/2022 - dulaglutide (TRULICITY) 1.5 mg/0.5 mL pen injector Inject 1.5 mg subcutaneously one time a week. Inject once per week. Discard Pen After - BIOTIN 5,000 MCG GUMMY - VITAMIN D3 50 MCG, 2,000 UNIT, GUMMIES - folic acid 800 mcg tablet Take 400 mcg by mouth once daily. - cyanocobalamin, vitamin B-12, (VITAMIN B-12) 5,000 mcg subl Dissolve under the tongue. - VIT B COMPLX-FOLIC AC-C-BIOTIN ORAL Take by mouth. - Flaxseed Oil 1,000 mg cap Take by mouth. - Ncviy-5-FLB-EPA-Fish Oil (FISH OIL) 1,000 mg (120 mg-180 mg) cap Take 2 g by mouth twice daily. - Nwofi-3-LGN-EPA-Fish Oil (FISH OIL) 300-1,000 mg cap Take by mouth. - gabapentin (NEURONTIN) 300 mg capsule Take 1 capsule by mouth as directed for 90 days. Take 1 capsule daily for 1 week, then 1 capsule twice a day for 1 week, then 1 capsule 3 times per day. - topiramate (TOPAMAX) 200 mg tablet Take 1 tablet by mouth twice daily. - alcohol swabs Use as directed - blood sugar diagnostic (BLOOD GLUCOSE TEST) test strip Test blood sugar(s) 1 times daily. Dx: Type 2 DM - Controlled E11.9 Insulin: No - Lancets lancets Test blood sugar(s) 1 times daily. Dx: Type 2 DM - Controlled E11.9 Insulin: No - DULoxetine (CYMBALTA) 60 mg capsule Take 1 capsule by mouth once daily. - levothyroxine (LEVOXYL) 125 mcg tablet Take 1 tablet by mouth once daily. except 1/2 tablet on Sundays. Take on empty stomach. For thyroid. - ergocalciferol 50,000 unit capsule (VITAMIN D2, DRISDOL) Take 1 capsule by mouth two times a week. TO BE TAKEN ORALLY DIRECTED. Take 1 tablet by mouth twice weekly [id number], then decrease to 1 tablet weekly. - Blood Glucose Strip-Disp Meter kit Check sugars 2 times a day for Diabetes Mellitus type 2 uncontrolled - C,E,zinc,copper 55-qzxio9s-lmc (OCUVITE ADULT 50 PLUS) 250-5-1 mg cap Take by mouth once daily. - vitamin B complex (B COMPLEX ORAL) Take 5 mg by mouth once daily. - ql-mc-DK-vit N-cmtfp-ogvu-zeax (OCUVITE EYE PLUS MULTI) 200-15-150 mcg tab Take by mouth once daily. - acetaminophen (TYLENOL) 500 mg tablet Take 500 mg by mouth as needed. - COMPOUNDED PRESCRIPTION Glucometer w/test strips, lancets, OH-wipes, enough for 1/day testing Problem List As Of Date 12/10/2022 Noted Resolved MYALGIA AND MYOSITIS NOS [[id number]] 06/19/2004 ACUTE IDIOPATH PERICARDITIS [I30.0] PMH - PAST MEDICAL HISTORY OF PERS HX COLONIC POLYPS [Z86.010] HYPOTHYROIDISM [T68.XXXA] 10/08/2005 04/09/2016 Sleep apnea [G47.30] 10/08/2005 DYSMETABOLIC SYNDROME X [E88.81] 06/20/2006 HYPERGLYCEMIA [R79.89] 06/20/2006 DYSURIA [R30.0] 06/20/2006 MIXED HYPERLIPIDEMIA [E78.2] 06/20/2006 Familial recurrent peripheral facial palsy [G51*03/12/2016 White matter abnormality on MRI of brain [R90.8*04/14/2016 Depression [F32.A] 01/21/2017 Obesity (BMI 30-39.9) [E66.9] 11/25/2017 Steroid-induced hyperglycemia [R73.9, T38.0X5A] 11/25/2017 Type 2 diabetes mellitus (HCC) [E11.9] 11/25/2017 Hypothyroidism [E03.9] 11/25/2017 Seizure-like activity (HCC) [R56.9] 12/06/2018 Abnormal brain MRI [R90.89] 07/23/2019 Fibromyalgia [M79.7] 07/23/2019 Burns's palsy [G51.0] 07/23/2019 Thyroid disease [E07.9] 07/23/2019 11/23/2019 Seizures (HCC) [R56.9] 08/23/2019 08/23/2019 Encounter Status:Closed by EPIC, PRODUSER on 12/15/22 [facility] Clinical Note 01-01-2022 Note Date & Type Note Facility 01-01-2022 Note Patient Outreach (IN TMMN) MARIE FISHER ([id number]) 1960 F Date Time Provider Department 01/01/22 SOWMYA HOLLINGSWORTH During your visit today, we recorded the following information about you: Allergies As of Date: 01/01/2022 Noted Allergy Reaction DEMEROL (MEPERIDINE (PF)) 10/21/2005 IMURAN (AZATHIOPRINE SODIUM) 10/29/2016 2 - Rash Comments: Rash, joint pain, swelling, fever PERFUMES 09/03/2005 5 - Intolerance PROPOXYPHENE 06/19/2004 Comments: darvocet GOLDENSEAL ROOT 08/08/2015 4 - Hives IODINE 02/03/2019 14 - Other: See Comments Comments: Pt got very nauseated upon iv injection today,ok with oral contrast. kmr POISON MAXIME EXTRACT 2 - Rash 7 - Swelling 9 - Itching TEA TREE OIL 08/08/2015 14 - Other: See Comments Comments: Blisters Date Reviewed: 10/17/2020 Reviewed by: Neelam Molina - Fully Assessed Visit Diagnosis:Encounter for screening mammogram for breast cancer [Z12.31] Order(s):[facility] SCREENING [[id number]] Order #: [id number] FUTURE Prescriptions as of 01/06/2022 - dulaglutide (TRULICITY) 1.5 mg/0.5 mL pen injector Inject 1.5 mg subcutaneously one time a week. Inject once per week. Discard Pen After - BIOTIN 5,000 MCG GUMMY - VITAMIN D3 50 MCG, 2,000 UNIT, GUMMIES - folic acid 800 mcg tablet Take 400 mcg by mouth once daily. - cyanocobalamin, vitamin B-12, (VITAMIN B-12) 5,000 mcg subl Dissolve under the tongue. - VIT B COMPLX-FOLIC AC-C-BIOTIN ORAL Take by mouth. - Flaxseed Oil 1,000 mg cap Take by mouth. - Khsiv-7-YXW-EPA-Fish Oil (FISH OIL) 1,000 mg (120 mg-180 mg) cap Take 2 g by mouth twice daily. - Wsars-3-USP-EPA-Fish Oil (FISH OIL) 300-1,000 mg cap Take by mouth. - gabapentin (NEURONTIN) 300 mg capsule Take 1 capsule by mouth as directed for 90 days. Take 1 capsule daily for 1 week, then 1 capsule twice a day for 1 week, then 1 capsule 3 times per day. - topiramate (TOPAMAX) 200 mg tablet Take 1 tablet by mouth twice daily. - alcohol swabs Use as directed - blood sugar diagnostic (BLOOD GLUCOSE TEST) test strip Test blood sugar(s) 1 times daily. Dx: Type 2 DM - Controlled E11.9 Insulin: No - Lancets lancets Test blood sugar(s) 1 times daily. Dx: Type 2 DM - Controlled E11.9 Insulin: No - DULoxetine (CYMBALTA) 60 mg capsule Take 1 capsule by mouth once daily. - levothyroxine (LEVOXYL) 125 mcg tablet Take 1 tablet by mouth once daily. except 1/2 tablet on Sundays. Take on empty stomach. For thyroid. - ergocalciferol 50,000 unit capsule (VITAMIN D2, DRISDOL) Take 1 capsule by mouth two times a week. TO BE TAKEN ORALLY DIRECTED. Take 1 tablet by mouth twice weekly [id number], then decrease to 1 tablet weekly. - Blood Glucose Strip-Disp Meter kit Check sugars 2 times a day for Diabetes Mellitus type 2 uncontrolled - C,E,zinc,copper 02-tcohv7y-kfv (OCUVITE ADULT 50 PLUS) 250-5-1 mg cap Take by mouth once daily. - vitamin B complex (B COMPLEX ORAL) Take 5 mg by mouth once daily. - io-ih-WW-vit E-wzwtz-uppi-zeax (OCUVITE EYE PLUS MULTI) 200-15-150 mcg tab Take by mouth once daily. - acetaminophen (TYLENOL) 500 mg tablet Take 500 mg by mouth as needed. 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 White matter abnormality on MRI of brain [R90.8*04/14/2016 Depression [F32.A] 01/21/2017 Obesity (BMI 30-39.9) [E66.9] 11/25/2017 Steroid-induced hyperglycemia [R73.9, T38.0X5A] 11/25/2017 Type 2 diabetes mellitus (HCC) [E11.9] 11/25/2017 Hypothyroidism [E03.9] 11/25/2017 Seizure-like activity (HCC) [R56.9] 12/06/2018 Abnormal brain MRI [R90.89] 07/23/2019 Fibromyalgia [M79.7] 07/23/2019 Burns's palsy [G51.0] 07/23/2019 Thyroid disease [E07.9] 07/23/2019 11/23/2019 Seizures (HCC) [R56.9] 08/23/2019 08/23/2019 Encounter Status:Closed by EPIC, PRODUSER on 01/06/22 [facility] History of Past illness Narrative 08-23-2019 Note Date & Type Note Facility documented as of this encounter (statuses as of 01/06/2022) [facility] Evaluation + Plan note Note Date & Type Note Facility Evaluation + Plan note No data available for this section [facility] Evaluation note Note Date & Type Note Facility documented in this encounter [facility] Discharge instructions Note Date & Type Note Facility Hospital Discharge instructions No data available for this section [facility] Progress note Note Date & Type Note Facility Progress note No data available for this section [facility] Reason for referral (narrative) Diagnostic Procedure Only (Routine) - Pending Review Note Date & Type Note Facility Referral ID Status Reason Start Date Expiration Date Visits Requested Visits Authorized [id number] Pending Review Auto-Generat ed Referral 01/01/2022 01/31/2023 1 1 [facility] Summary Purpose Family History No Family History Records FoundNo Family History Records FoundNo Family History Records FoundNo Family History Records FoundNo Family History Records FoundNo Family History Records Found Advance Directives No Advanced Directives Records FoundDocuments on File Type Date Recorded Patient County Nurse Expl anation Advance Directive(s) 03/15/2019 8:25 AM sc anned in Advance Directive(s) 03/15/2019 8:24 AM Advance Directive(s) 09/13/2018 6:08 PM Advance Directive(s) 08/28/2018 1:14 PM Advance Directive(s) 04/30/2016 10:51 AM Advance Directive(s) 08/28/2015 10:31 AM Advance Directive(s) 08/22/2015 1:25 PM Hospital Course Note HNO ID: [id number] Author: Marilyn Hutton (Ron Deras Service: Neurology Adult Epilepsy Author Type: Nurse Practitioner Type: Discharge Summary Filed: 08/31/2019 9:21 AM Note Text: Attestation signed by Fer Wilburn at 08/31/2019 9:38 AM Fer Wilburn MD PHD August 31, 2019 9:37 AM DISCHARGE SUMMARY PATIENT NAME: Marie Fisher ADMISSION DATE: 08/23/2019 DISCHARGE DATE: 08/31/2019 ADMITTING SERVICE: Epilepsy ATTENDING PHYSICIAN: Fer Wilburn Code Status: Not on file Referring/Secondary Physician: BOBBI FREEMAN Highest Readmission Risk Score: 9 The 30 day readmissions risk score is derived from an internally validated risk model which evaluates patient level characteristics, utilization history, medication orders and lab results up until the day of discharge. Patients with a score of 40 or above are considered (more content not included)... Additional Source Comments INFORMATION SOURCE (unrecogn ized section and content) DATE CREATED AUTHOR AUTHOR'S ORGANIZ ATION 08/31/2019 [facility] DATE CREATED AUTHOR AUTHOR'S ORGANIZ ATION 05/07/2020 [facility] DATE CREATED AUTHOR AUTHOR'S ORGANIZ ATION 01/22/2022 [facility] DATE CREATED AUTHOR AUTHOR'S ORGANIZ ATION 09/24/2022 [facility] DATE CREATED AUTHOR AUTHOR'S ORGANIZ ATION 12/17/2022 [facility] Source Comments (unrecognize d section and content) In the event this informatio n is protected by the Federal Confidentiality of Alcohol and Drug Abuse Patient Records regulations: The Federal rules restrict any use of the information to criminally investigate or prosecute any alcohol or drug abuse patient.[facility] Care Teams (unrecognized sec tion and content) FOR RECORDS PERTAINING TO PATIENTS WHO ARE OR HAVE BEEN ENROLLED IN A CHEMICAL DEPENDENCY/SUBSTANCEABUSE PROGRAM, SOME INFORMATION MAY BE OMITTED. This clinical summary was aggregated from multiple sources. Caution should be exercised in using it in the provision of clinical care. This summary normalizes information from multiple sources, and as a consequence, information in this document may materially change the coding, format and clinical context of patient data. In addition, data may be omitted in some cases. CLINICAL DECISIONS SHOULD BE BASED ON THE PRIMARY CLINICAL RECORDS. [facility]. provides no warranty or guarantee of the accuracy or completeness of information in this document.
== END | disposition home or self-care (01) ==
PROVIDERS: PCP Family Medicine Geriatric Medicine; Visit Provider Family Medicine Geriatric Medicine
DX: E03.9 Hypothyroidism, unspecified (principal)
CPT/HCPCS: 36415; 84443

== ENCOUNTER → 2023-09-07 | Outpatient (CLI) | payer MEDICARE, SELFPAY ==
[2023-09-07 14:38] LABS: Absolute Lymphocyte Count 1.98 X10^3/uL (0.83-4.51); Absolute Neutrophil Count 6.9 X10^3/uL (2.0-7.7); Basophil# 0.05 X10^3/uL; Basophil% 0.5 % (0-1); Hematocrit 41.6 % (37-47); Hemoglobin 13.2 g/dL (12.0-15.0); Lymphocyte # 1.98 X10^3/ul (0.83-4.51); Lymphocyte % 20.9 % (19-41); Mean Corp Hgb Conc 31.7 g/dL (32-36); Mean Corpuscular Hgb 28.3 pg (27.0-32.0); Mean Corpuscular Volume 89.3 fL (81-99); Mean Platelet Vol. 9.4 fl (6.2-12.0); Monocyte# 0.55 X10^3/uL; Monocyte% 5.8 % (0-10); NRBC Flagged by Analyzer 0 % (0-5); Neutrophil # 6.85 X10^3/uL (2.7-7.7); Neutrophil % 72.4 % (47-70); Platelet Count 229 K/mm3 (150-450); RBC Distribution Width CV 13.2 % (11.6-14.6); RBC Distribution Width SD 42.5 fl (35.1-43.9); Red Blood Count 4.66 M/mm3 (4.2-5.4); White Blood Count 9.5 K/mm3 (4.4-11.0)
[2023-09-07 14:40] LABS: Color, Urine Yellow (Yellow); Glucose, Dipstick Normal (Normal); Ketone-Dipstick 5 mg/dl (Negative); Leukocyte Esterase-Dipstick 100 /ul (Negative); Nitrite-Dipstick Negative (Negative); Occult Blood-Urine Negative /ul (Negative); Protein-Dipstick 15 mg/dl (Negative); Urine Bilirubin Dipstick 1 mg/dL (Negative); Urine Clarity Sl. Cloudy (Clear); Urine Urobilinogen 1 mg/dl (Normal)
[2023-09-07 14:53] LABS: Anion Gap 4 (5-15); BUN 16 mg/dL (7-18); BUN/Creat Ratio 18.3 RATIO (10-20); CPK Total, Creatine Kinase 50 U/L (26-192); Calcium,Total 9.4 mg/dL (8.5-10.1); Chloride 107 mmol/L (98-107); Creatinine, Serum 0.87 mg/dL (0.55-1.02); EST Glomerular Filtration Rate 70 mL/min (>60); Est Glom Filt Rate - Afr Amer 84 mL/min (>60); Glucose 115 mg/dL (74-106); Sodium Level 140 mmol/L (136-145); Thyroid Stim Hormone (TSH) 0.89 uIU/mL (0.358-3.74); Troponin-I HS 4 pg/mL (3.0-54.0)
[2023-09-09 08:12] LABS: Myoglobin, Serum 37 ng/mL (25-58)
== END | disposition home or self-care (01) ==
LOC: POLAB3 13:54
PROVIDERS: PCP Family Medicine Geriatric Medicine; Visit Provider Family Medicine Geriatric Medicine
DX: E78.5 Hyperlipidemia, unspecified (principal); E03.9 Hypothyroidism, unspecified; N39.0 Urinary tract infection, site not specified; R07.9 Chest pain, unspecified
CPT/HCPCS: 36415; 80048; 81002; 82550; 83874; 84443; 84484; 85025; 87077; 87086; 87088

== ENCOUNTER → 2023-09-09 | Outpatient (CLI) | payer MEDICARE, SELFPAY ==
--- NOTE | 2023-09-09 07:40 | EKG12_ITS ---
Test Reason : CP, PALP Blood Pressure : / mmHG Vent. Rate : 079 BPM Atrial Rate : 079 BPM P-R Int : 142 ms QRS Dur : 084 ms QT Int : 364 ms P-R-T Axes : 024 035 040 degrees QTc Int : 417 ms Normal sinus rhythm Nonspecific T wave abnormality Abnormal ECG Confirmed by LANDY MOULTON, MOMO ([id number]), graphics editor BOOGIE SANTIAGO ([id number]) on 09/10/2023 6:09:36 AM Referred By: Juwan Hernandez Confirmed By:MOMO BILL MD
== END | disposition home or self-care (01) ==
LOC: PSN 07:38
PROVIDERS: PCP Family Medicine Geriatric Medicine; Referring Provider Family Medicine Geriatric Medicine; Visit Provider Family Medicine Geriatric Medicine
DX: R07.9 Chest pain, unspecified (principal); R00.2 Palpitations
CPT/HCPCS: 93005

== ENCOUNTER 2023-09-29 12:03 | Inpatient (IN) | payer MEDICARE, SELFPAY ==
[2023-09-29] VITALS (9 sets, daily range): BP systolic 120–138; BP diastolic 67–82; PULSE 60–76; RESP 12–19; TEMP 36.2–36.7; O2SAT 95–99; BMI 35.6; BMI 35.1; BMI 32.9
--- NOTE | 2023-09-29 12:48 | CT_ITS ---
STUDY: CT BRAIN WITHOUT CONTRAST REASON FOR EXAM: Female, 63 years old. Left side weakness RADIATION DOSAGE (If Supplied By Facility): CTDIvol = ( 44.99 ) mGy, DLP = ( 796.11 ) mGycm TECHNIQUE: Transaxial CT imaging of the brain was performed without administration of intravenous contrast material. Individualized dose optimization techniques were used for this CT. COMPARISON: Comparison is made with prior study dated January 07, 2021. FINDINGS: Normal soft tissue structures. Normal calvarium. Normal size ventricles and extra-axial spaces for the patient''s age. Normal white matter tracts of the cerebral hemispheres. Normal basal ganglia and thalami. Normal brainstem. Normal cerebellum. There is no intracranial hemorrhage. There are no findings of an acute ischemic infarction. Normal visualized paranasal sinuses. CT/Brain/Head without Contrast IMPRESSION: Normal unenhanced CT scan of the brain. Electronically Signed: Jaden Steele MD at 13:58 EDT ,
--- NOTE | 2023-09-29 12:48 | EKG12_ITS ---
Test Reason : NEURO Blood Pressure : / mmHG Vent. Rate : 071 BPM Atrial Rate : 071 BPM P-R Int : 162 ms QRS Dur : 082 ms QT Int : 414 ms P-R-T Axes : 023 026 018 degrees QTc Int : 449 ms Normal sinus rhythm Normal ECG Confirmed by LANDY MOULTON, MOMO ([id number]), news copy editor HEATHER NARVAEZ ([id number]) on 09/30/2023 9:33:03 AM Referred By: Confirmed By:MOMO BILL MD
--- NOTE | 2023-09-29 12:49 | EDS_ITS ---
HPI History of Present Illness Chief Complaint: Neuro S/Sx Detail of Chief Complaint: Left-sided weakness with concern for stroke Informant: patient Narrative Narrative: Patient presents to the emergency department with concern for possible stroke. Patient states that symptoms started 4 days ago where she had some trouble with her speech. Patient also having some left-sided numbness and weakness to the left arm and left leg. She has had some trouble with her balance. 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 Patient also has history of MS. She denies any falls or head injuries. She d oes have a headache behind her left eye. Patient tells me she has allergy to iodine dye. [facility] Medical History (Updated 09/29/23 @ 14:[address] Jackson Henderson, ) Abdominal pain, RLQ Acid reflux Acute diverticulitis Blackout Bladder pain Chest pain Chronic appendicitis Colon stricture Constipation Diabetes mellitus Diverticulitis Dysphagia Fatigue Gastric reflux High cholesterol History of diverticulitis History of edema History of GI bleed History of irregular heartbeat History of pain when walking Hx of Burns's palsy Injury of head and neck Migraine headache Multiple sclerosis Nausea Numbness and tingling Palpitations Pericarditis Seizure Sleep apnea SOB (shortness of breath) on exertion Syncope, vasovagal Tachycardia Thyroid disease Home Medications cholecalciferol (vitamin D3) 25 mcg (1,000 unit) tablet (Vitamin D3) 1,000 unit PO DAILY SUPPLEMENT 03/13/16 [History Last Taken 09/28/23] xnnekiqy-hzx-ZX 200 mcg-vit K 15 mcg-lycope 150 zew-[id number]-ixtn tablet (Ocuvite Eye Plus Multi) 1 ea PO DAILY SUPPLEMENT 03/13/16 [History Last Taken 09/28/23] duloxetine 60 mg capsule,delayed release 1 capsule PO DAILY FIBROMYALGIA 10/24/16 [History Last Taken 09/28/23] acetaminophen 500 mg tablet 500 mg PO Q6H PRN PRN Pain 02/14/17 [History Last Taken Unknown] melatonin 10 mg tablet 10 mg PO QHS PRN Insomnia 02/14/17 [History Last Taken Unknown] topiramate 100 mg tablet 100 mg PO BID SEIZURES 02/14/17 [History Last Taken 09/28/23] levetiracetam 500 mg tablet 500 mg PO BID SEIZURES 07/28/22 [History Last Taken 09/28/23] pantoprazole 40 mg tablet,delayed release 40 mg PO DAILY GERD 07/28/22 [History Last Taken 09/28/23] coenzyme Q10 100 mg capsule (Co Q-10) 100 mg PO DAILY LIVER 01/05/23 [History Last Taken 09/28/23] oxycodone 5 mg tablet 5 mg PO Q6H PRN PRN Pain Score 4-10 3 days #10 tabs 02/12/23 [Rx Last Taken Unknown] docusate sodium 100 mg capsule (Colace) 100 mg PO DAILY 02/23/23 [History Last Taken 09/28/23] Lactobacillus acidophilus (Acidophilus capsule) 100 mg PO DAILY 09/18/23 [History Last Taken 09/28/23] albuterol sulfate 90 mcg/actuation aerosol inhaler 2 puff inhalation Q4H PRN shortness of breath or wheezing 09/18/23 [History Last Taken Unknown] atorvastatin 10 mg tablet 10 mg PO DAILY 09/18/23 [History Last Taken 09/28/23] dulaglutide 1.5 mg/0.5 mL subcutaneous pen injector (Trulicity) 1.5 mg subcut DAILY 09/18/23 [History Last Taken 09/25/23] levothyroxine 100 mcg tablet 100 mcg PO DAILY 09/18/23 [History Last Taken 09/28/23] levothyroxine 25 mcg capsule 25 mcg PO DAILY 09/18/23 [History Last Taken 09/28/23] pioglitazone 30 mg tablet 30 mg PO DAILY 09/18/23 [History Last Taken 09/28/23] sennosides 8.6 mg-docusate sodium 50 mg tablet (Senna Plus) 1 tab-cap PO QHS 09/18/23 [History Last Taken 09/28/23] topiramate 50 mg tablet 100 mg PO BID 09/29/23 [History Last Taken Unknown] Allergy/AdvReac Type Severity Reaction Status Date / Time iodine Allergy Severe Angioedema Verified 09/29/23 12:04 bee venom protein (honey bee) Allergy Intermediate Anaphylaxis Verified 09/29/23 12:04 poison viviana extract AdvReac Intermediate Rash Verified 09/29/23 12:04 azathioprine AdvReac Pain in Verified 09/29/23 12:04 joints goldenseal [zuñiga seal] AdvReac Rash Verified 09/29/23 12:04 meperidine [From Demerol] AdvReac Nausea Verified 09/29/23 12:04 propoxyphene AdvReac Unknown Verified 09/29/23 12:04 [From Darvocet-N] tea tree AdvReac blister Verified 09/29/23 12:04 Family History Father Bleeding disorder Colon cancer Brother Diabetes Mother Thyroid disorder High blood cholesterol Surgical History History of bladder surgery History of cholecystectomy History of colonoscopy History of dental surgery History of exploratory laparotomy History of left knee surgery History of lung biopsy (~08/2015) Hx of hysterectomy Hx of partial mastectomy Hx of tonsillectomy (~1969) S/P appendectomy S/P colectomy S/P laparoscopy with lysis of adhesions Social History Smoking Status: Never smoker second hand exposure: No alcohol intake: never substance use type: does not use caffeine: Yes what type of physical activity do you participate in: none frequency: does not exercise ROS ROS ED Review of Systems ROS Unobtainable: other Constitutional Constitutional ED: Reports lethargy; Denies chills, fever(s), sweats or weight loss Eyes Eyes: Denies blurry vision, change in vision or diplopia ENT ENT ED: Denies rhinorrhea or sore throat Cardiovascular Cardiovascular: Denies chest pain, orthopnea or racing heartbeat Respiratory/Chest Respiratory/Chest: Denies cough, dyspnea, dyspnea on exertion, orthopnea or sputum Gastrointestinal Gastrointestinal: Denies abdominal pain, diarrhea, nausea or vomiting Genitourinary Genitourinary ED: Denies dysuria, hematuria or urinary frequency Musculoskeletal Musculoskeletal: Denies arthralgias, back pain, myalgias or neck pain Integumentary Denies abscess, Abrasions or rash Neurologic Neurologic: Reports headache(s), paresthesias, weakness and other Details: Left arm and left leg weakness Speech difficulty Psychiatric Psychiatric: Denies anxiety, depression or suicidal thoughts Endocrine Endocrinology: Denies polydipsia, polyphagia or polyuria Hematologic/Lymphatic Hematologic/Lymphatic: Denies easy bleeding, easy bruising or lymphadenopathy Allergic/Immunologic Allergic/Immunologic ED: Denies mouth swelling, tongue swelling or urticaria EXAM Physical Exam Const Vital Signs: 09/29/23 12:05 09/29/23 12:07 09/29/23 14:03 Temperature 97.1 F L 97.8 F Temperature Source Temporal Temporal Pulse Rate 76 76 69 Respiratory Rate 14 12 18 Blood Pressure 129/82 H 129/82 H 138/70 H Blood Pressure Mean 97 97 92 Pulse Ox 98 98 95 Oxygen Delivery Method Room Air Room Air Room Air Positive well nourished and well developed General Appearance ED: well developed and NAD HEENT Reports TM's clear and moist mucous membranes normocephalic and atraumatic; Negative for trauma or tenderness Tympanic Membrane ED: Yes TM's clear Eyes PERRL and EOMs intact bilaterally General Eye ED: Negative for pale conjunctiva or scleral icterus Neck no lymphadenopathy, supple and no JVD General: Negative for tenderness Chest Wall inspection of chest normal and palpation of chest normal Chest: Negative for tenderness Resp normal respiratory effort and clear to auscultation bilaterally Effort and Inspection: Negative for respiratory distress or pain with movement Auscultation: Negative for rhonchi, wheezes or diminished lung sounds Cardio regular rate, regular rhythm, S1 normal heart sound, S2 normal heart sound and no murmurs Peripheral Pulses: pulses 2+ throughout GI normal to inspection, nondistended, normoactive bowel sounds, soft to palpation, non-tender, non-distended and no masses Back/Spine no CVA tenderness and no thoracic nor lumbar tenderness Extremity normal to inspection General Extremety ED: Negative for edema General Extremity: Negative for edema Neuro oriented x3, CN's II-XII intact bilaterally, no sensory deficits noted and gait normal Neuro Narrative: NIH stroke scale is a 6. Given for decree sensation to the left side as well as left facial droop which apparently is chronic. Patient also with some dysarthria. Sensorium / Orientation: awake, alert, oriented to person, oriented to place and oriented to time Motor Exam: strength 5/5 throughout and strength abnormal Psych mental status grossly normal Skin no rashes or lesions noted and no wounds MDM MDM MDM Narrative Medical decision making narrative: Patient presents with left-sided weakness and paresthesias and difficulty with balance concern for stroke. IV line established. Patient placed on monitoring tech. EKG obtained showed a sinus rhythm with rate of 71 bpm with no acute ST segment changes. CBC with differential was normal. Chemistries unremarkable. Troponin was normal at 4. CT scan of the brain without contrast showed no acute process. Patient with strokelike symptoms ongoing for 4 days. Not a thrombolytic candidate. Will discuss case with hospitalist to evaluate patient for admission for completion of stroke workup. Lab Data Attestation: I reviewed the patient's lab results. Labs: Laboratory Results - last 24 hr 09/29/23 09/29/23 12:25 13:25 WBC 8.3 RBC 4.71 Hgb 13.3 Hct 42.0 MCV 89.2 MCH 28.2 MCHC 31.7 L RDW Std Deviation 41.6 RDW Coeff of Andrew 12.8 Plt Count 249 MPV 9.5 Immature Gran % (Auto) 0.400 Neut % (Auto) 71.2 H Lymph % (Auto) 21.9 [place] % (Auto) 6.1 Eos % (Auto) 0.0 Baso % (Auto) 0.4 Absolute Neuts (auto) 5.9 Absolute Lymphs (auto) 1.82 Nucleated RBC % 0 Sodium 141 Potassium 4.2 Chloride 107 Carbon Dioxide 28.0 Anion Gap 6 BUN 12 Creatinine 0.83 Estim Creat Clear Calc 85.69 Est GFR (MDRD) Af Amer 89 Est GFR (MDRD) Non-Af 73 BUN/Creatinine Ratio 14.4 Glucose 134 H Calcium 9.0 Troponin I High Sens 4 POC Glucose 146 H Radiography Diagnostic Testing: Clinical Impression(s) from Imaging Studies Brain CT 09/29/23 12:48 IMPRESSION: Normal unenhanced CT scan of the brain. Electronically Signed: Jaden Steele MD at 13:58 EDT , Discharge Plan Triage Chief Complaint: Neuro S/Sx ED Provider: Jackson Henderson Dx/Rx/DC Orders Clinical Impression: Paresthesias, Dysarthria, Facial droop, Disequilibrium Prescriptions: No Action docusate sodium [Colace] 100 mg capsule 100 mg PO DAILY atorvastatin 10 mg tablet 10 mg PO DAILY sennosides-docusate sodium [Senna Plus] 8.6-50 mg tablet 1 tab-cap PO QHS levothyroxine 100 mcg tablet 100 mcg PO DAILY Acidophilus Capsule 100 mg PO DAILY albuterol sulfate 90 mcg/actuation HFA aerosol inhaler 2 puff inhalation Q4H PRN (Reason: shortness of breath or wheezing) Patient Comments: INHALE 2 PUFFS BY MOUTHCEVERY 4 HOURS NEEDED pioglitazone 30 mg tablet 30 mg PO DAILY levothyroxine 25 mcg capsule 25 mcg PO DAILY Trulicity 1.5 mg/0.5 mL pen injector 1.5 mg subcut DAILY Patient Comments: INJECT 1.5MG (0.5ML) SUBCUTANEOUSLY ONCE A WEEK ON FRIDAYS cholecalciferol (vitamin D3) [Vitamin D3] 1,000 UNIT tablet 1,000 unit PO DAILY Ocuvite Eye Plus Multi 1 EACH tablet 1 ea PO DAILY duloxetine 60 MG capsule,delayed release(DR/EC) 1 capsule PO DAILY acetaminophen 500 MG tablet 500 mg PO Q6H PRN PRN (Reason: Pain) topiramate 100 MG tablet 100 mg PO BID melatonin 10 MG tablet 10 mg PO QHS PRN (Reason: Insomnia) levetiracetam 500 mg tablet 500 mg PO BID pantoprazole 40 mg tablet,delayed release (DR/EC) 40 mg PO DAILY coenzyme Q10 [Co Q-10] 100 mg capsule 100 mg PO DAILY oxycodone 5 mg Tablet 5 mg PO Q6H PRN PRN (Reason: Pain Score 4-10) 3 Days Qty: 10 0RF topiramate 50 mg tablet 100 mg PO BID Primary Care Provider: Juwan Hernandez Chi Referrals: Juwan Hernandez Chi, MD [Primary Care Provider] - Disposition Disposition: Acute Care Hospital [facility]
[2023-09-29] MEDS: 0.9% Normal Saline (1000mL) 1,000 ML 150 ML IV (13:00)
[2023-09-29 13:21] LABS: Absolute Lymphocyte Count 1.82 X10^3/uL (0.83-4.51); Absolute Neutrophil Count 5.9 X10^3/uL (2.0-7.7); Basophil# 0.03 X10^3/uL; Basophil% 0.4 % (0-1); Hemoglobin 13.3 g/dL (12.0-15.0); Lymphocyte # 1.82 X10^3/ul (0.83-4.51); Lymphocyte % 21.9 % (19-41); Mean Corp Hgb Conc 31.7 g/dL (32-36); Mean Corpuscular Hgb 28.2 pg (27.0-32.0); Mean Corpuscular Volume 89.2 fL (81-99); Mean Platelet Vol. 9.5 fl (6.2-12.0); Monocyte# 0.51 X10^3/uL; Monocyte% 6.1 % (0-10); NRBC Flagged by Analyzer 0 % (0-5); Neutrophil # 5.91 X10^3/uL (2.7-7.7); Neutrophil % 71.2 % (47-70); Platelet Count 249 K/mm3 (150-450); RBC Distribution Width CV 12.8 % (11.6-14.6); RBC Distribution Width SD 41.6 fl (35.1-43.9); Red Blood Count 4.71 M/mm3 (4.2-5.4); White Blood Count 8.3 K/mm3 (4.4-11.0)
[2023-09-29 13:33] LABS: Anion Gap 6 (5-15); BUN 12 mg/dL (7-18); BUN/Creat Ratio 14.4 RATIO (10-20); Chloride 107 mmol/L (98-107); Creatinine, Serum 0.83 mg/dL (0.55-1.02); EST Glomerular Filtration Rate 73 mL/min (>60); Est Glom Filt Rate - Afr Amer 89 mL/min (>60); Estimated Creatinine Clearance 85.69 ml/min; Glucose 134 mg/dL (74-106); Potassium 4.2 mmol/L (3.5-5.1); Sodium Level 141 mmol/L (136-145); Troponin-I HS 4 pg/mL (3.0-54.0)
[2023-09-29 13:43] LABS: Bedside Glucose 146 mg/dL (74-106)
--- NOTE | 2023-09-29 15:07 | MRI_ITS ---
STUDY: MRA NECK WITHOUT CONTRAST REASON FOR EXAM: Female, 63 years old. LT SIDED WEAKNESS/numbness, speech trouble, hx ms TECHNIQUE: Source images were obtained, MIPs were performed. The study was performed unenhanced. COMPARISON: None. FINDINGS: RIGHT CAROTID ARTERIES: Normal right common carotid artery (CCA). Normal right common carotid bulb. Normal origin of the right internal carotid (ICA) artery without a hemodynamically significant stenosis. Normal visualized cervical portion of the right internal carotid artery. Normal origin of the right external carotid artery (ECA). LEFT CAROTID ARTERIES: Normal left common carotid artery (CCA). Normal left common carotid bulb. Normal origin of the left internal carotid (ICA) artery without a hemodynamically significant stenosis. Normal visualized cervical portion of the left internal carotid artery. Normal origin of the left external carotid artery (ECA). VERTEBRAL ARTERIES: Normal antegrade flow within the bilateral vertebral artery without a hemodynamically significant stenosis. MRI/MRA Neck without Contrast IMPRESSION: Normal bilateral cervical carotid and vertebral arteries. Electronically Signed: Alex Maldonado MD at 19:54 EDT ,
--- NOTE | 2023-09-29 15:07 | MRI_ITS ---
STUDY: MRI BRAIN WITHOUT CONTRAST REASON FOR EXAM: Female, 63 years old. LT SIDED WEAKNESS/numbness, speech trouble, hx ms TECHNIQUE: Standardized multiplanar fat and water weighted pulse sequences were obtained. COMPARISON: CT earlier today FINDINGS: Normal size of the ventricles and extra-axial spaces for the patient''s age. There are a limited number of small white matter hyperintensities, distributed throughout the deep white matter tracts of the cerebral hemispheres, consistent with mild chronic white matter ischemic changes. There is no evidence for recent intracranial ischemia or other cause of cytotoxic edema on diffusion weighted imaging (DWI). Normal T2* images of the brain without demonstrated susceptibility artifact. There is no demonstrated hemosiderin stain. Normal bilateral basal ganglia. Normal thalami. There is no extra-axial fluid accumulation. Normal flow voids within the major intracranial circulation suggesting patency by spin echo criteria. Normal sella turcica, pituitary gland, infundibular stalk, optic chiasm and hypothalamus. Normal tectal plate and pineal gland. There are chronic white matter ischemic changes of the shala. The midbrain and medulla are otherwise normal. Normal cerebellum. Normal basal cisterns. Normal bilateral temporal bones. Normal bilateral internal auditory canals. No demonstrated orbital abnormality, within the constraints of a routine brain study. Normal visualized paranasal sinuses. Normal calvarium and skull base. Normal visualized soft tissue structures. Normal visualized upper cervical spine. MRI/Brain without Contrast IMPRESSION: Involutional changes of the brain, as described above. No acute infarct. Electronically Signed: Alex Maldonado MD at 19:53 EDT ,
--- NOTE | 2023-09-29 15:09 | PCM.HP.STD ---
HPI - General General Date of Admission: 09/29/23 Date of Service: 09/29/23 Chief Complaint: left sided weakness. HPI Narrative JOSE GUADALUPE FISHER, is a 63 F who presents with left sided weakness. Sx began Thursday. She has a h/o Left sided Burns's Palsy. Left facial weakness is worse. Also with left arm and leg weakness. She presented to ED for evaluation. CT showed no acute process. [facility] Medical History Abdominal pain, RLQ Acid reflux Acute diverticulitis Blackout Bladder pain Chest pain Chronic appendicitis Colon stricture Constipation Diabetes mellitus Diverticulitis Dysphagia Fatigue Gastric reflux High cholesterol History of diverticulitis History of edema History of GI bleed History of irregular heartbeat History of pain when walking Hx of Burns's palsy Injury of head and neck Migraine headache Multiple sclerosis Nausea Numbness and tingling Palpitations Pericarditis Seizure Sleep apnea SOB (shortness of breath) on exertion Syncope, vasovagal Tachycardia Thyroid disease Home Medications cholecalciferol (vitamin D3) 25 mcg (1,000 unit) tablet (Vitamin D3) 1,000 unit PO DAILY SUPPLEMENT 03/13/16 [History Last Taken 09/28/23] hywovraa-oyj-ES 200 mcg-vit K 15 mcg-lycope 150 gok-bexhhg-mlsv tablet (Ocuvite Eye Plus Multi) 1 ea PO DAILY SUPPLEMENT 03/13/16 [History Last Taken 09/28/23] duloxetine 60 mg capsule,delayed release 1 capsule PO DAILY FIBROMYALGIA 10/24/16 [History Last Taken 09/28/23] acetaminophen 500 mg tablet 500 mg PO Q6H PRN Pain 02/14/17 [History Last Taken Unknown] melatonin 10 mg tablet 10 mg PO QHS PRN Insomnia 02/14/17 [History Last Taken Unknown] topiramate 100 mg tablet 100 mg PO BID SEIZURES 02/14/17 [History Last Taken 09/28/23] levetiracetam 500 mg tablet 500 mg PO BID SEIZURES 07/28/22 [History Last Taken 09/28/23] pantoprazole 40 mg tablet,delayed release 40 mg PO DAILY GERD 07/28/22 [History Last Taken 09/28/23] coenzyme Q10 100 mg capsule (Co Q-10) 100 mg PO DAILY LIVER 01/05/23 [History Last Taken 09/28/23] atorvastatin 10 mg tablet 10 mg PO DAILY 09/18/23 [History Last Taken 09/28/23] dulaglutide 1.5 mg/0.5 mL subcutaneous pen injector (Trulicity) 1.5 mg subcut FR 09/18/23 [History Last Taken 09/25/23] levothyroxine 100 mcg tablet 100 mcg PO DAILY 09/18/23 [History Last Taken 09/28/23] magnesium oxide 400 mg PO DAILY 09/29/23 [History Last Taken Unknown] polyethylene glycol 3350 17 gram/dose oral powder (Miralax) 17 g PO DAILY PRN constipation 09/29/23 [History Last Taken Unknown] Allergy/AdvReac Type Severity Reaction Status Date / Time iodine Allergy Severe Angioedema Verified 09/29/23 12:04 bee venom protein (honey bee) Allergy Intermediate Anaphylaxis Verified 09/29/23 12:04 poison viviana extract AdvReac Intermediate Rash Verified 09/29/23 12:04 azathioprine AdvReac Pain in Verified 09/29/23 12:04 joints goldenseal [zuñiga seal] AdvReac Rash Verified 09/29/23 12:04 meperidine [From Demerol] AdvReac Nausea Verified 09/29/23 12:04 propoxyphene AdvReac Unknown Verified 09/29/23 12:04 [From Darvocet-N] tea tree AdvReac blister Verified 09/29/23 12:04 Family History Father Bleeding disorder Colon cancer Brother Diabetes Mother Thyroid disorder High blood cholesterol Surgical History History of bladder surgery History of cholecystectomy History of colonoscopy History of dental surgery History of exploratory laparotomy History of left knee surgery History of lung biopsy (~08/2015) Hx of hysterectomy Hx of partial mastectomy Hx of tonsillectomy (~1969) S/P appendectomy S/P colectomy S/P laparoscopy with lysis of adhesions Social History Smoking Status: Never smoker second hand exposure: No alcohol intake: never substance use type: does not use caffeine: Yes what type of physical activity do you participate in: none frequency: does not exercise ROS ROS Narrative Is clear chest pain goes to her back. Recent EKG was referred to cardiology because it is abnormal. All review of systems were negative except as mentioned above in the history of present illness and the other review of systems. Vital Signs Vital Signs Vital Signs: 09/29/23 12:05 09/29/23 12:07 09/29/23 14:03 Temperature 36.2 C L 36.6 C Temperature Source Temporal Temporal Pulse Rate 76 76 69 Respiratory Rate 14 12 18 Blood Pressure 129/82 H 129/82 H 138/70 H Blood Pressure Mean 97 97 92 Pulse Ox 98 98 95 Oxygen Delivery Method Room Air Room Air Room Air 09/29/23 14:37 Temperature 36.4 C L Temperature Source Pulse Rate 69 Respiratory Rate 16 Blood Pressure 136/71 H Blood Pressure Mean 92 Pulse Ox 97 Oxygen Delivery Method Weight Weight: 103.2 kg Body Mass Index (BMI) 35.1 Physical Exam Const alert and no apparent distress HEENT normocephalic HEENT Narrative: Left facial droop Eyes PERRL and EOMs intact bilaterally Neck no lymphadenopathy and supple Resp normal respiratory effort, no retractions, no use of accessory muscles and clear to auscultation bilaterally Cardio regular rate, regular rhythm, S1 normal heart sound, S2 normal heart sound and no murmurs GI normal to inspection, nondistended, normoactive bowel sounds, soft to palpation, non-tender and non-distended Extremity normal to inspection and full ROM Neuro oriented x3 Neuro Narrative: Left facial droop with impairment of the left nasolabial fold. Able to raise her left eyebrow. Slight ataxia of the left upper and left lower extremity. Strength is 5-5 in the right upper, left upper and right lower extremity. 4 out of 5 in the left lower extremity. Sensorium / Orientation: awake and alert Psych affect normal Results Lab / Micro Data Attestation: I reviewed the patient's lab results. 09/29/23 12:25 09/29/23 12:25 Labs: Laboratory Results - last 24 hr 09/29/23 12:25: WBC 8.3, RBC 4.71, Hgb 13.3, Hct 42.0, MCV 89.2, MCH 28.2, MCHC 31.7 L, RDW Std Deviation 41.6, RDW Coeff of Andrew 12.8, Plt Count 249, MPV 9.5, Immature Gran % (Auto) 0.400, Neut % (Auto) 71.2 H, Lymph % (Auto) 21.9, [place] % (Auto) 6.1, Eos % (Auto) 0.0, Baso % (Auto) 0.4, Absolute Neuts (auto) 5.9, Absolute Lymphs (auto) 1.82, Nucleated RBC % 0, Sodium 141, Potassium 4.2, Chloride 107, Carbon Dioxide 28.0, Anion Gap 6, BUN 12, Creatinine 0.83, Estim Creat Clear Calc 85.69, Est GFR (MDRD) Af Amer 89, Est GFR (MDRD) Non-Af 73, BUN/Creatinine Ratio 14.4, Glucose 134 H, Calcium 9.0, Troponin I High Sens 4 09/29/23 13:25: POC Glucose 146 H EKG Initial EKG: Attestation: I personally reviewed and interpreted this EKG as follows: Prior EKG tracings: available for review EKG Rhythm Intrepretation: Sinus Rhythm Imaging Radiology Impression Brain CT 09/29/23 12:48 IMPRESSION: Normal unenhanced CT scan of the brain. Electronically Signed: Jaden Steele MD at 13:58 EDT , Assessment & Plan Assessment/Plan (1) Left-sided weakness: PLAN: Plan Left-sided weakness Concern for neurologic process. Patient does have known MS but denies any history of flares. Cannot rule out this being an MS flare. Also cannot rule this out being a stroke. Also could be component of functional as well but will undergo stroke workup with an MRI of the brain, MRA of the head and neck, 2D echocardiogram. PT, OT and bedside swallow evaluation. Consult neurology for further recommendations. Chronic condition Diabetes mellitus type 2: On Trulicity at home. Sign scale insulin. Seizure disorder: Continue with levetiracetam Hypothyroidism: Continue levothyroxine VTE prophylaxis with enoxaparin CODE STATUS: Full. Charges/Coding Visit Charges Inpatient E&M: 14516 Init Hosp L3
--- NOTE | 2023-09-29 15:31 | MRI_ITS ---
STUDY: MRA OF THE HEAD WITHOUT CONTRAST REASON FOR EXAM: Female, 63 years old. LT SIDED WEAKNESS/numbness, speech trouble, hx ms TECHNIQUE: 3-D [id number] (TOF) imaging was performed with MIPs. The study was performed unenhanced. COMPARISON: None. FINDINGS: Normal bilateral petrous carotid arteries. Normal right cavernous carotid artery with a normal supraclinoid bifurcation. Normal left cavernous carotid artery with a normal supraclinoid bifurcation. Normal right A1 segments of the anterior cerebral artery. Normal left A1 segments of the anterior cerebral artery. Normal intact anterior communicating artery (ACOM). Normal bilateral A2 segments of the anterior cerebral arteries. Normal right M1 and M2 segments of the middle cerebral arteries, with a normal M1 bifurcation. Normal left M1 and M2 segments of the middle cerebral arteries, with a normal M1 bifurcation. Normal right posterior communicating artery (PCOM). Normal left posterior communicating artery (PCOM). Normal bilateral vertebral arteries. Normal basilar artery with a normal basilar bifurcation. The visualized bilateral superior cerebellar (SCA) arteries are normal. Normal bilateral P1, P2 and visualized P3 segments of the posterior cerebral arteries. There is no demonstrated aneurysm of the [place] of [place]. There is no major vessel occlusion or hemodynamically significant stenosis. There is no demonstrated abnormality of the visualized brain. MRI/MRA Head ONLY without Contrast IMPRESSION: Normal MRA of the head Electronically Signed: Alex Maldonado MD at 19:54 EDT ,
--- NOTE | 2023-09-29 16:25 | ECHOD_ITS ---
Reason For Study: TIA/CVA Procedure This was a 2D Doppler, Color Flow transthoracic echocardiogram. Exam performed portable in patient room. Left Ventricle Normal left ventricle. Left ventricular systolic function is normal. The estimated ejection fraction is 65 %. Normal diastology for age. No regional wall motion abnormalities noted. Right Ventricle Normal right ventricle. Normal systolic function. Atria Normal left atrium. Normal right atrium. Bubble contrast study negative for right to left interatrial shunt. Mitral Valve The mitral valve is structurally normal. No prolapse or stenosis seen. Tricuspid Valve Normal tricuspid valve. Trivial tricuspid valve insufficiency. Unable to estimate RV systolic pressure due to insufficient tricuspid regurgitant envelope. Aortic Valve The aortic valve is not well visualized in the short axis view. Mild focal aortic valve calcification. Trivial aortic valve insufficiency. Pulmonic Valve The pulmonic valve is not well visualized. Great Vessels Normal aortic root. Pericardium/Pleural No pericardial effusion. Medication Performed a rapid injection of agitated mix of 9 cc saline and 1cc air to assess for atrial septal defect. MMode/2D Measurements & Calculations LVIDd: 4.5 cm IVSd: 1.0 cm LVOT diam: 1.9 cm LVIDs: 2.7 cm LVPWd: 0.92 cm RVDd: 3.6 cm FS: 39.7 % LVOT area: 2.8 cm2 Ao root diam: 3.1 cm LAV(MOD-bp): 41.3 ml LVAd ap4: 23.2 cm2 LAV(MOD-bp) Indexed: 20.0 ml/m2 LVLd ap4: 7.4 cm LAV(MOD-sp2): 34.6 ml EDV(MOD-sp4): 61.4 ml LAV(MOD-sp4): 40.9 ml EDV(sp4-el): 62.3 ml LVAs ap4: 12.4 cm2 LVLs ap4: 6.2 cm ESV(MOD-sp4): 22.5 ml ESV(sp4-el): 21.1 ml EF(MOD-sp4): 63.4 % EF(sp4-el): 66.2 % LVAd ap2: 19.0 cm2 SV(MOD-sp4): 38.9 ml SV(MOD-sp2): 28.6 ml LVLd ap2: 7.1 cm EDV(MOD-sp2): 42.0 ml EDV(sp2-el): 43.1 ml LVAs ap2: 9.7 cm2 LVLs ap2: 6.0 cm ESV(MOD-sp2): 13.4 ml ESV(sp2-el): 13.2 ml EF(MOD-sp2): 68.1 % SV(sp4-el): 41.2 ml LA dimension(2D): 4.0 cm LA A4 area: 16.0 cm2 RA A4 area: 13.1 cm2 TAPSE: 2.1 cm Time Measurements MV dec time: 0.24 sec Doppler Measurements & Calculations MV E max ulices: 85.2 cm/sec Lat Peak E' Ulices: 9.0 cm/sec Med Peak E' Ulices: 7.5 cm/sec MV A max ulices: 104.1 cm/sec E/E' lat: 9.5 E/E' med: 11.4 MV E/A: 0.82 Ao V2 max: 161.1 cm/sec LV V1 max: 109.5 cm/sec MV dec slope: 362.3 cm/sec2 Ao max P.4 mmHg LV V1 max P.8 mmHg Ao V2 mean: 109.9 cm/sec LV V1 mean P.7 mmHg Ao mean P.5 mmHg LV V1 mean: 77.0 cm/sec Ao V2 VTI: 36.7 cm LV V1 VTI: 22.0 cm AV (velocity ratio): 0.60 SARAH(I,D): 1.7 cm2 SARAH(V,D): 1.9 cm2 SV(LVOT): 60.6 ml PA V2 max: 59.8 cm/sec PA max PG (full): 0.26 mmHg ECHO/Echo Complete Interpretation Summary The estimated ejection fraction is 65 %. Mild focal aortic valve calcification. Bubble contrast study negative for right to left interatrial shunt. Ordering Physician: Douglas Oliva Referring Physician: Juwan Hernandez Chi Performed By: Cecilia Joseph RDCS
[2023-09-29] MEDS: levETIRAcetam 500 MG Tablet PO (22:01)
[2023-09-29] MEDS: Topiramate 100 MG Tablet PO (22:01)
[2023-09-29 22:59] LABS: Bedside Glucose 98 mg/dL (74-106)
[2023-09-30] MEDS: 0.9% Normal Saline (1000mL) 1,000 ML 150 ML IV ×2 (01:27→08:15)
[2023-09-30 05:21] VITALS: BP 134/69; PULSE 80; RESP 16; TEMP 36.6; O2SAT 95
[2023-09-30] MEDS: Levothyroxine 100 MCG Tablet PO (05:31)
[2023-09-30 06:57] LABS: Bedside Glucose 116 mg/dL (74-106)
[2023-09-30 07:37] LABS: Absolute Lymphocyte Count 2.19 X10^3/uL (0.83-4.51); Basophil# 0.06 X10^3/uL; Basophil% 0.7 % (0-1); Eosinophil# 0.02 X10^3/uL; Eosinophils% 0.2 % (0-5); Hematocrit 38.9 % (37-47); Hemoglobin 12.2 g/dL (12.0-15.0); Lymphocyte # 2.19 X10^3/ul (0.83-4.51); Lymphocyte % 24.7 % (19-41); Mean Corp Hgb Conc 31.4 g/dL (32-36); Mean Corpuscular Hgb 28.2 pg (27.0-32.0); Mean Platelet Vol. 9.5 fl (6.2-12.0); Monocyte# 0.54 X10^3/uL; Monocyte% 6.1 % (0-10); NRBC Flagged by Analyzer 0 % (0-5); Neutrophil # 5.99 X10^3/uL (2.7-7.7); Neutrophil % 67.7 % (47-70); Platelet Count 212 K/mm3 (150-450); RBC Distribution Width CV 12.8 % (11.6-14.6); RBC Distribution Width SD 42.3 fl (35.1-43.9); Red Blood Count 4.32 M/mm3 (4.2-5.4); White Blood Count 8.9 K/mm3 (4.4-11.0)
[2023-09-30 08:00] LABS: Anion Gap 7 (5-15); BUN 12 mg/dL (7-18); Calcium,Total 8.5 mg/dL (8.5-10.1); Chloride 111 mmol/L (98-107); Cholesterol 207 mg/dL (200); EST Glomerular Filtration Rate 89 mL/min (>60); Est Glom Filt Rate - Afr Amer 108 mL/min (>60); Estimated Creatinine Clearance 97.55 ml/min; Glucose 127 mg/dL (74-106); High Density Lipoprotein 44 mg/dL; Potassium 3.6 mmol/L (3.5-5.1); Sodium Level 142 mmol/L (136-145); Triglycerides 191 mg/dL; Very Low Density Lipoprotein 38 mg/dL (5-40)
[2023-09-30] MEDS: Magnesium Chloride 64 MG Delay Rel.Tablet 128 MG PO (08:15)
[2023-09-30] MEDS: Pantoprazole Sodium 40 MG Tablet PO (08:15)
[2023-09-30] MEDS: levETIRAcetam 500 MG Tablet PO (08:15)
[2023-09-30] MEDS: Multivitamin (Healthy Eyes) Capsule 1 CAP PO (08:16)
[2023-09-30] MEDS: Cholecalciferol (VIT D3) 25 MCG TABLET (1,000 UNITS) PO (08:16)
[2023-09-30] MEDS: Topiramate 100 MG Tablet PO (08:16)
[2023-09-30] MEDS: DULoxetine Hcl 60 MG Capsule PO (08:16)
[2023-09-30] MEDS: Enoxaparin 40 MG/0.4 ML Syringe SC (08:16)
[2023-09-30 08:21] VITALS: PULSE 71; RESP 18; O2SAT 97
[2023-09-30 08:29] VITALS: O2SAT 97
--- NOTE | 2023-09-30 09:44 | NEURO.CONS ---
Assessment and Plan: Neuro Assessment/Plan JOSE GUADALUPE FISHER is a 63 F with a past medical history of left bells palsy, DM, GERD and reported MS being evaluated by Teleneurology for left sided weakness. MRI is negative for stroke, just shows conspecific T2 changes which are likely related to small vessel disease. Low concern for MS Flare given age, chronic nature of symptoms and functional features on examination. Discussed utility of MRI with contrast for formally rule out flare - after our discussion patient and have decided to forgo further imaging due to both cost and would prefer not to treat with steroids if this was a Flare. My suspicion for true organic pathology causing her symptoms is low. Diagnosis: left sided weakness Plan: - discussed MRI brain with contrast - elected to forgo as above. - recommend PT/OT only - Follow up with Dr Harrell when able I personally attended this patient and spent a total time of 62 minutes evaluating this patient including clinical assessment, review of chart, medical history imaging, and determining appropriate treatment and workup. HPI Consult Data Date of Consult: 09/30/23 HPI Narrative HPI Narrative: JOSE GUADALUPE FISHER, is a 63 F who presents with left sided weakness and numbness that began about 4-5 days ago. Symptoms have been stable since onset. She has a history of [place] with chronic facial weakness and also reports chronic left sided weakness but felt overall slightly worse in the last few days. She is still able to walk and perform all her usual activities. On arrival to the ED - CTH was unremarkable. She underwent MRI/MRAs which did not show stroke. Diagnosed with MS in 2018 - previously she had seen [facility] neurology but was never given a diagnosis. She reports she was on chemo for about a year for her MS. She did not see any benefit. She later tried Ocrevius in 2019 but did not like the side effects(bruising?, making her bones brittle?). She has not been on DMT since 2019. She began seeing Dr Harrell for her MS in 2018. In addition to her left sided weakness, she does have right sided shakiness from her MS and issues with gait. [facility] Medical History (Updated 09/29/23 @ 16:03 by Khloe Cowan) Abdominal pain, RLQ Acid reflux Acute diverticulitis Blackout Bladder pain Chest pain Chronic appendicitis Colon stricture Constipation Diabetes mellitus Diverticulitis Dysphagia Fatigue Gastric reflux High cholesterol History of diverticulitis History of edema History of GI bleed History of irregular heartbeat History of pain when walking Hx of Burns's palsy Injury of head and neck Migraine headache Multiple sclerosis Nausea Numbness and tingling Osteoporosis Palpitations Pericarditis Seizure Sleep apnea SOB (shortness of breath) on exertion Syncope, vasovagal Tachycardia Thyroid disease Home Medications cholecalciferol (vitamin D3) 25 mcg (1,000 unit) tablet (Vitamin D3) 1,000 unit PO DAILY SUPPLEMENT 03/13/16 [History Last Taken 09/28/23] [id number]-[id number]-JC 200 mcg-vit K 15 mcg-lycope 150 [id number]-nvzd tablet (Ocuvite Eye Plus Multi) 1 ea PO DAILY SUPPLEMENT 03/13/16 [History Last Taken 09/28/23] duloxetine 60 mg capsule,delayed release 1 capsule PO DAILY FIBROMYALGIA 10/24/16 [History Last Taken 09/28/23] acetaminophen 500 mg tablet 500 mg PO Q6H PRN Pain 02/14/17 [History Last Taken Unknown] melatonin 10 mg tablet 10 mg PO QHS PRN Insomnia 02/14/17 [History Last Taken Unknown] topiramate 100 mg tablet 100 mg PO BID SEIZURES 02/14/17 [History Last Taken 09/28/23] levetiracetam 500 mg tablet 500 mg PO BID SEIZURES 07/28/22 [History Last Taken 09/28/23] pantoprazole 40 mg tablet,delayed release 40 mg PO DAILY GERD 07/28/22 [History Last Taken 09/28/23] coenzyme Q10 100 mg capsule (Co Q-10) 100 mg PO DAILY LIVER 01/05/23 [History Last Taken 09/28/23] atorvastatin 10 mg tablet 10 mg PO DAILY 09/18/23 [History Last Taken 09/28/23] dulaglutide 1.5 mg/0.5 mL subcutaneous pen injector (Trulicity) 1.5 mg subcut FR 09/18/23 [History Last Taken 09/25/23] levothyroxine 100 mcg tablet 100 mcg PO DAILY 09/18/23 [History Last Taken 09/28/23] magnesium oxide 400 mg PO DAILY 09/29/23 [History Last Taken Unknown] polyethylene glycol 3350 17 gram/dose oral powder (Miralax) 17 g PO DAILY PRN constipation 09/29/23 [History Last Taken Unknown] Allergy/AdvReac Type Severity Reaction Status Date / Time iodine Allergy Severe Angioedema Verified 09/29/23 12:04 bee venom protein (honey bee) Allergy Intermediate Anaphylaxis Verified 09/29/23 12:04 poison viviana extract AdvReac Intermediate Rash Verified 09/29/23 12:04 azathioprine AdvReac Pain in Verified 09/29/23 12:04 joints goldenseal [zuñiga seal] AdvReac Rash Verified 09/29/23 12:04 meperidine [From Demerol] AdvReac Nausea Verified 09/29/23 12:04 propoxyphene AdvReac Unknown Verified 09/29/23 12:04 [From Darvocet-N] tea tree AdvReac blister Verified 09/29/23 12:04 Family History Father Bleeding disorder Colon cancer Brother Diabetes Mother Thyroid disorder High blood cholesterol Surgical History History of bladder surgery History of cholecystectomy History of colonoscopy History of dental surgery History of exploratory laparotomy History of left knee surgery History of lung biopsy (~08/2015) Hx of hysterectomy Hx of partial mastectomy Hx of tonsillectomy (~1969) S/P appendectomy S/P colectomy S/P laparoscopy with lysis of adhesions Social History Smoking Status: Never smoker second hand exposure: No alcohol intake: never substance use type: does not use caffeine: Yes what type of physical activity do you participate in: none frequency: does not exercise Vital Signs Vital Signs Vital Signs: 09/29/23 12:05 09/29/23 12:07 09/29/23 14:03 Temperature 97.1 F L 97.8 F Temperature Source Temporal Temporal Pulse Rate 76 76 69 Pulse Strength Respiratory Rate 14 12 18 Respiratory Effort Respiratory Depth Respiratory Pattern Blood Pressure 129/82 H 129/82 H 138/70 H Blood Pressure Mean 97 97 92 Blood Pressure Source Blood Pressure Position Blood Pressure Location Pulse Ox 98 98 95 Oxygen Delivery Method Room Air Room Air Room Air 09/29/23 14:37 09/29/23 16:03 09/29/23 16:25 Temperature 97.6 F L 97.9 F 97.9 F Temperature Source Oral Oral Pulse Rate 69 68 60 Pulse Strength Respiratory Rate 16 19 H 19 H Respiratory Effort Respiratory Depth Respiratory Pattern Blood Pressure 136/71 H 131/76 H 131/74 H Blood Pressure Mean 92 94 93 Blood Pressure Source Monitor Monitor Blood Pressure Position Semi-Fowlers Semi-Fowlers Blood Pressure Location Right Arm Right Arm Pulse Ox 97 99 99 Oxygen Delivery Method Room Air Room Air 09/29/23 19:35 09/29/23 20:15 09/29/23 19:30 Temperature 98.1 F Temperature Source Oral Pulse Rate 73 Pulse Strength Respiratory Rate 16 Respiratory Effort Normal Non-Labored Respiratory Depth Normal Respiratory Pattern Normal Blood Pressure 120/67 Blood Pressure Mean 84 Blood Pressure Source Blood Pressure Position Blood Pressure Location Pulse Ox 95 97 Oxygen Delivery Method Room Air Room Air Room Air 09/29/23 23:41 09/30/23 05:21 09/30/23 05:25 Temperature 98.1 F 97.8 F Temperature Source Oral Oral Pulse Rate 74 80 Pulse Strength Respiratory Rate 18 16 Respiratory Effort Normal Non-Labored Respiratory Depth Normal Respiratory Pattern Normal Blood Pressure 126/76 H 134/69 H Blood Pressure Mean 92 90 Blood Pressure Source Blood Pressure Position Blood Pressure Location Pulse Ox 95 95 Oxygen Delivery Method Room Air Room Air Room Air 09/30/23 08:21 09/30/23 08:29 09/30/23 08:29 Temperature Temperature Source Pulse Rate 71 Pulse Strength Normal (2+) Respiratory Rate 18 Respiratory Effort Normal Non-Labored Respiratory Depth Normal Respiratory Pattern Normal Blood Pressure Blood Pressure Mean Blood Pressure Source Blood Pressure Position Blood Pressure Location Pulse Ox 97 97 Oxygen Delivery Method Room Air Room Air Weight Weight: 95.4 kg Body Mass Index (BMI) 32.9 EEG Results Procedure Details EEG Procedure Details: JOSE GUADALUPE FISHER is a 63 year old F with a past medical history of , who presents for evaluation of Electroencephalogram on DATE at TIME NIHSS NIHSS Nursing Documentation NIHSS Nursing Documentation: NIH Stroke Scale Start: 09/29/23 12:30 Freq: Status: Active Protocol: Activity Type Activity Date Activity User E-sign Co-sign Detail Recorded Client Recorded Date Recorded By Document 09/29/23 12:30 BS Desktop 09/29/23 13:15 BS 09/29/23 12:30 NIH Stroke Scale [NIHSS] A score of 0 is normal or asymptomatic . Total possible score is 42. Inpatient: RN or Physician to activate a stroke alert for onset of new stroke symptoms or with NIHSS increase >/= 3 points. Following change in neurological status, NIHSS will be performed per physician order or more frequently PRN. -1a. Level of Consciousness Alert; keenly responsive -1b. LOC Questions Answers BOTH questions correctly. -1c. LOC Commands Performs both tasks correctly . -2. Best Gaze Normal -3. Visual No visual loss -4. Facial Palsy Complete paralysis of one or both sides -5a. Left Arm Drift; arm drifts downward but doesn?t hit the bed -5b. Right Arm No drift; arm holds 90 (or 45 ) degrees for full 10 seconds -6a. Left Leg Drift; leg falls by the end of 5- seconds, but does not hit bed -6b. Right Leg No drift; leg holds 30-degree position for full 5 seconds -7. Limb Ataxia Absent -8. Sensory Normal; no sensory loss -9. Best Language No aphasia; normal -10. Dysarthria Mild-to- moderate dysarthria; -11. Extinction and Inattention No abnormality -Total 6 Query Text:A score of 0 is normal or asymptomatic. Total possible score is 42 . ED: Notify Physician for NIHSS increase by > / = 3 points. Inpatient: RN or Physician to activate a stroke alert for NIHSS increase of > / = 3 points. NIHSS: Ischemic Stroke/TIA Start: 09/29/23 16:25 Text: For PCU Patients: NIH and Neuro Check every 4 Status: Complete hours and PRN Freq: [id number] Protocol: Activity Type Activity Date Activity User E-sign Co-sign Detail Recorded Client Recorded Date Recorded By Document 09/29/23 19:35 MM Desktop 09/29/23 19:42 MM 09/29/23 19:35 -1a. Level of Consciousness Alert; keenly responsive -1b. LOC Questions Answers BOTH questions correctly. -1c. LOC Commands Performs both tasks correctly . -2. Best Gaze Normal -3. Visual No visual loss -4. Facial Palsy Minor paralysis (flattened nasolabial fold , asymmetry on smiling) -5a. Left Arm No drift; arm holds 90 (or 45 ) degrees for full 10 seconds -5b. Right Arm No drift; arm holds 90 (or 45 ) degrees for full 10 seconds -6a. Left Leg No drift; leg holds 30-degree position for full 5 seconds -6b. Right Leg No drift; leg holds 30-degree position for full 5 seconds -7. Limb Ataxia Absent -8. Sensory Mild-to- moderate sensory loss; -9. Best Language No aphasia; normal -10. Dysarthria Normal -11. Extinction and Inattention No abnormality -Total 2 Query Text:A score of 0 is normal or asymptomatic. Total possible score is 42 . ED: Notify Physician for NIHSS increase by > / = 3 points. Inpatient: RN or Physician to activate a stroke alert for NIHSS increase of > / = 3 points. Coma Scale [Assess] -Eye Opening Spontaneous -Motor Obeys Commands -Verbal Oriented [Total] -Coma Scale Total 15 Physical Exam HEENT normocephalic and hearing grossly normal bilaterally Eyes PERRL and EOMs intact bilaterally Neuro oriented x3, CN's II-XII intact bilaterally and moves all extremities Sensorium / Orientation: awake and alert Cranial Nerves: CN normal except as noted, CN V (trigeminal) Laterality: left (Decreased sensation to light touch with midline splitting in the forehead) and CN VII (facial) Laterality: left (no facial droop at rest, when asked to smile there is asymmetric contraction - pulling of the left lower face. ) Coordination / Balance: [id number]-[id number] test normal and leve-fj-xmct test normal Speech: speech normal Sensory Exam: double simultaneous stimulation for sensation abnormal Positive for left-sided extinction (decreased sensation to light touch throughout left hemibody - about 80% of right side) Motor Exam: strength 5/5 throughout Coordination: qihmee-nt-msto test normal and rgez-kj-qtav test normal Pupil Exam: Normal Pupillary Reactivity/Response: bilateral Psych Attitude: calm Lab / Micro Data 09/30/23 06:26 09/30/23 06:26 Labs: Laboratory Results - last 24 hr 09/29/23 12:25: WBC 8.3, RBC 4.71, Hgb 13.3, Hct 42.0, MCV 89.2, MCH 28.2, MCHC 31.7 L, RDW Std Deviation 41.6, RDW Coeff of Andrew 12.8, Plt Count 249, MPV 9.5, Immature Gran % (Auto) 0.400, Neut % (Auto) 71.2 H, Lymph % (Auto) 21.9, [place] % (Auto) 6.1, Eos % (Auto) 0.0, Baso % (Auto) 0.4, Absolute Neuts (auto) 5.9, Absolute Lymphs (auto) 1.82, Nucleated RBC % 0, Sodium 141, Potassium 4.2, Chloride 107, Carbon Dioxide 28.0, Anion Gap 6, BUN 12, Creatinine 0.83, Estim Creat Clear Calc 85.69, Est GFR (MDRD) Af Amer 89, Est GFR (MDRD) Non-Af 73, BUN/Creatinine Ratio 14.4, Glucose 134 H, Calcium 9.0, Troponin I High Sens 4 09/29/23 13:25: POC Glucose 146 H 09/29/23 22:03: POC Glucose 98 09/30/23 06:26: WBC 8.9, RBC 4.32, Hgb 12.2, Hct 38.9, MCV 90.0, MCH 28.2, MCHC 31.4 L, RDW Std Deviation 42.3, RDW Coeff of Andrew 12.8, Plt Count 212, MPV 9.5, Immature Gran % (Auto) 0.600, Neut % (Auto) 67.7, Lymph % (Auto) 24.7, Eaton % (Auto) 6.1, Eos % (Auto) 0.2, Baso % (Auto) 0.7, Absolute Neuts (auto) 6.0, Absolute Lymphs (auto) 2.19, Nucleated RBC % 0, Sodium 142, Potassium 3.6, Chloride 111 H, Carbon Dioxide 24.0, Anion Gap 7, BUN 12, Creatinine 0.70, Estim Creat Clear Calc 97.55, Est GFR (MDRD) Af Amer 108, Est GFR (MDRD) Non-Af 89, BUN/Creatinine Ratio 17.0, Glucose 127 H, Calcium 8.5, Triglycerides 191, Cholesterol 207 H, LDL Cholesterol 125, VLDL Cholesterol 38, HDL Cholesterol 44 09/30/23 06:40: POC Glucose 116 H Imaging Radiology Impression Brain CT 09/29/23 12:48 IMPRESSION: Normal unenhanced CT scan of the brain. Electronically Signed: Jaden Steele MD at 13:58 EDT , Brain MRI 09/29/23 15:07 IMPRESSION: Involutional changes of the brain, as described above. No acute infarct. Electronically Signed: Alex Maldonado MD at 19:53 EDT Reading Location ID and State: [id number] / [employer] , Service support , Neck MRA 09/29/23 15:07 IMPRESSION: Normal bilateral cervical carotid and vertebral arteries. Electronically Signed: Alex Maldonado MD at 19:54 EDT Reading Location ID and State: [id number] / [employer] , Service support , Head MRA 09/29/23 15:31 IMPRESSION: Normal MRA of the head Electronically Signed: Alex Maldonado MD at 19:54 EDT Reading Location ID and State: [id number] / [employer] , Service support , Active Medications Active Medications Active Medications: Current Medications Generic Name Dose Route Start Last Admin Trade Name Freq PRN Reason Stop Dose Admin Acetaminophen 500 mg 09/29/23 16:25 Acetaminophen 500 Mg Tablet PO Q6H PRN Pain Score 1-10 Cholecalciferol 25 mcg 09/30/23 10:00 09/30/23 08:16 Cholecalciferol (Vit D3) 25 Mcg Tablet (1,000 Units) PO 25 mcg DAILY MARK Administration Dextrose 0 gm 09/29/23 16:25 Dextrose 50%-Water 25 Gm/50 Ml Disp.Syrin IV X1 PRN HYPOGLYCEMIA Protocol Duloxetine HCl 60 mg 09/30/23 10:00 09/30/23 08:16 Duloxetine Hcl 60 Mg Capsule PO 60 mg DAILY MARK Administration Enoxaparin Sodium 40 mg 09/30/23 10:00 09/30/23 08:16 Enoxaparin 40 Mg/0.4 Ml Syringe SC 40 mg DAILY MARK Administration Glucagon 1 mg 09/29/23 16:25 Glucagon 1 Mg/Ml Syringe IM X1 PRN HYPOGLYCEMIA Hydralazine HCl 5 mg 09/29/23 16:25 Hydralazine 20 Mg/Ml Vial IV Q30M PRN to maintain BP goals Sodium Chloride 1,000 mls @ 150 mls/hr 09/29/23 12:50 09/30/23 08:15 IV 150 mls/hr .[id number] MARK Administration Sodium Chloride 250 mls @ 15 mls/hr 09/29/23 15:58 IV .[id number] PRN Additional IVPB Infusion Sodium Chloride 250 mls @ 15 mls/hr 09/29/23 15:58 IV .[id number] PRN Saline Flush Insulin Human Lispro 0 unit 09/29/23 16:25 09/30/23 06:48 Insulin Lispro 100 Unit/Ml Insuln.Pen SC Not Given [facility] Protocol Labetalol HCl 10 - 20 mg 09/29/23 16:25 Labetalol (Prefilled) 20 Mg/4 Ml IV Q10M PRN PRN to Maintain BP Goals Levetiracetam 500 mg 09/29/23 22:00 09/30/23 08:15 Levetiracetam 500 Mg Tablet PO 500 mg BID MARK Administration Levothyroxine Sodium 100 mcg 09/30/23 06:00 09/30/23 05:31 Levothyroxine 100 Mcg Tablet PO 100 mcg DAILY@0600 MARK Administration Magnesium Chloride 128 mg 09/30/23 10:00 09/30/23 08:15 Magnesium Chloride 64 Mg Delay Rel.Tablet PO 128 mg DAILY MARK Administration Melatonin 10 mg 09/29/23 16:33 Melatonin 10 Mg Tablet PO QHS PRN Insomnia Multivitamins/Minerals 1 cap 09/30/23 08:00 09/30/23 08:16 Multivitamin (Healthy Eyes) Capsule PO 1 cap DAILYCM MARK Administration Ondansetron HCl 4 mg 09/29/23 16:25 Ondansetron 4 Mg/2 Ml Vial IV Q8H PRN PRN NAUSEA/VOMITING Pantoprazole Sodium 40 mg 09/30/23 10:00 09/30/23 08:15 Pantoprazole Sodium 40 Mg Tablet PO 40 mg DAILY MARK Administration Polyethylene Glycol 17 gm 09/29/23 16:34 Polyethylene Glycol 3350 17 Gm Packet PO DAILY PRN constipation Sodium Chloride 10 - 40 ml 09/29/23 15:58 0.9% Saline Lock 10 Ml Syringe IV UD PRN SALINE FLUSH Topiramate 100 mg 09/29/23 22:00 09/30/23 08:16 Topiramate 100 Mg Tablet PO 100 mg BID MARK Administration
[2023-09-30 11:14] VITALS: BP 136/69; PULSE 71; RESP 18; TEMP 36.7; O2SAT 96
--- NOTE | 2023-09-30 11:26 | DCINST_ITS ---
Discharge Instructions Diet Discharge Diet: No restrictions Activity Discharge Activity: No Restrictions Weight Bearing Status: Full weight bearing Follow Up Care Test Results: Test results from this visit will be discussed in further detail at your follow- up appointment, if applicable. Discharge Plan Admission Admit Date/Time: 09/29/23 16:34 Primary Reason for Your Visit: Left-sided weakness with numbness and tingling Attending Provider: Rivera Heller Primary Care Provider: Juwan Hernandez [employer] Providers: Renny Patel; Pia Bojorquez; Fiona Harmon; Kailee Qiu; Michelle Hubbard; Baljeet Durham; Marion Orantes; Leobardo Benito; Valentín Quick; Juliet Salomon; Jake Ly; Kat Arambula; Ole Vergara; Jordy Estrella; Tim Pascual; Vic Guillen; Onofre Drummond; Elise Deras; Ridge Martinez; Douglas Oliva Discharge Orders/Prescriptions Prescriptions: Continued atorvastatin 10 mg tablet 10 mg PO DAILY levothyroxine 100 mcg tablet 100 mcg PO DAILY Trulicity 1.5 mg/0.5 mL pen injector 1.5 mg subcut FR cholecalciferol (vitamin D3) [Vitamin D3] 1,000 UNIT tablet 1,000 unit PO DAILY Ocuvite Eye Plus Multi 1 EACH tablet 1 ea PO DAILY duloxetine 60 MG capsule,delayed release(DR/EC) 1 capsule PO DAILY acetaminophen 500 MG tablet 500 mg PO Q6H PRN (Reason: Pain) topiramate 100 MG tablet 100 mg PO BID melatonin 10 MG tablet 10 mg PO QHS PRN (Reason: Insomnia) levetiracetam 500 mg tablet 500 mg PO BID pantoprazole 40 mg tablet,delayed release (DR/EC) 40 mg PO DAILY coenzyme Q10 [Co Q-10] 100 mg capsule 100 mg PO DAILY magnesium oxide 400 mg magnesium tablet 400 mg PO DAILY polyethylene glycol 3350 [Miralax] 17 gram/dose powder 17 g PO DAILY PRN (Reason: constipation) Referrals / Follow Up: Juwan Hernandez Chi, MD [Primary Care Provider] - Disposition Disposition (needs filled in before D/C Order can be placed): Home, Self Care
--- NOTE | 2023-09-30 11:27 | DS.PCM_ITS ---
Providers Date of Admission: 09/29/23 Date of Discharge: 09/30/23 Primary Care Physician: Dr. Juwan Hernandez MD Consultations 09/29/23 16:25 Consult: Tele-Neurology Routine Consulting Provider: [facility] Reason for Consult: Acute Ischemic Stroke/TIA EMERGENT Consult: No MD Notified: Yes Date Notified: 09/29/23 Time Notified: 14:55 Method of Notification: Answering Service Nursing Unit Staff Notify [facility] of Tele-Neurology Consult: Yes Reason For Visit: LEFT SIDE WEAKNESS Diagnosis Discharge Diagnosis (1) Left-sided weakness: Status: Acute Code(s): R53.1 - Weakness Medications at Discharge Home Medications cholecalciferol (vitamin D3) 25 mcg (1,000 unit) tablet (Vitamin D3) 1,000 unit PO DAILY SUPPLEMENT 03/13/16 [id number] 200 mcg-vit K 15 mcg-lycope 150 [id number] tablet (Ocuvite Eye Plus Multi) 1 ea PO DAILY SUPPLEMENT 03/13/16 duloxetine 60 mg capsule,delayed release 1 capsule PO DAILY FIBROMYALGIA 10/24/16 acetaminophen 500 mg tablet 500 mg PO Q6H PRN Pain 02/14/17 melatonin 10 mg tablet 10 mg PO QHS PRN Insomnia 02/14/17 topiramate 100 mg tablet 100 mg PO BID SEIZURES 02/14/17 levetiracetam 500 mg tablet 500 mg PO BID SEIZURES 07/28/22 pantoprazole 40 mg tablet,delayed release 40 mg PO DAILY GERD 07/28/22 coenzyme Q10 100 mg capsule (Co Q-10) 100 mg PO DAILY LIVER 01/05/23 atorvastatin 10 mg tablet 10 mg PO DAILY 09/18/23 dulaglutide 1.5 mg/0.5 mL subcutaneous pen injector (Trulicity) 1.5 mg subcut FR 09/18/23 levothyroxine 100 mcg tablet 100 mcg PO DAILY 09/18/23 magnesium oxide 400 mg PO DAILY 09/29/23 polyethylene glycol 3350 17 gram/dose oral powder (Miralax) 17 g PO DAILY PRN constipation 09/29/23 Hospital Course Operations None Procedures EKG, Transthoracic echo and - (MRI brain without contrast, MRA head/neck without contrast, CT head without contrast ) Summary of Care Provided Minutes Spent on Discharge: 35 Hospital Course: Patient is a 63-year-old female who presented to [facility] ED on 09/29 2023 with worsening left-sided numbness and tingling and weakness. Short hospital course as noted below. Discharged home with no therapy needs in stable condition on 09/29. 1. Left-sided weakness, reported history of MS ? Patient presented with worsening left-sided weakness that started on Tuesday 09/26. Patient reported left arm and leg weakness with numbness/tingling and mild left facial numbness with facial droop. ? Patient has reported history of MS, follows with Dr. Harrell with neurology. Previously followed with [facility] neurology. On history from family, was on immunotherapy for MS for about 1 year without much improvement, unclear agent. She then was on another IV immunotherapy agent for short time without improvement and this was discontinued about 2 years ago. She denies any history of MS exacerbations requiring steroid treatment. ? CT head without contrast negative. MRI brain and MRI head/neck without contrast both were nonacute. Echo with no concerning findings. Hemodynamically stable during hospitalization. Labs also benign. ? Teleneurology evaluated. Noted that MRI shows only nonspecific T2 changes likely related to small vessel disease. Had low concern for MS flare given age, chronic nature of symptoms and functional features on exam. Did discuss utility of MRI with contrast to formally rule out flare but after discussion with patient and they declined this testing. ? PT/OT/case management followed. Patient did well working with physical therapy, no therapy needs on discharge. Stable for discharge home on 09/29 with close outpatient follow-up with her neurologist. Chronic medical conditions: ? Type 2 diabetes mellitus: Treated with sinus consult while inpatient. Okay to resume home Trulicity on discharge. ? Seizure disorder: Continue home levetiracetam. ? Hypothyroidism: Continue home Synthroid. Total clinical time spent by myself addressing the patient's medical issues, reviewing all the data, and collaborating with patient's care team: 35 minutes. Physical Exam Const alert, oriented x3 and no apparent distress Constitutional Narrative: Middle-aged female, obese, sitting up comfortably in bed, conversing normally, no acute distress. General Appearance: cooperative and comfortable HEENT normocephalic, head/scalp atraumatic, hearing grossly normal bilaterally, nasal mucous membranes and turbinates normal and moist oral mucous membranes Eyes PERRL, EOMs intact bilaterally and conjunctivae normal Neck full ROM Chest inspection of chest normal Resp normal respiratory effort, normal air movement, no use of accessory muscles and clear to auscultation bilaterally Cardio regular rate, regular rhythm, no murmurs and peripheral pulses 2+ throughout GI normal to inspection, nondistended, normoactive bowel sounds, soft to palpation, non-tender and non-distended Back/Spine normal ROM Extremity normal to inspection, full ROM and no pedal edema Skin no rashes or lesions noted Neuro oriented x3 and moves all extremities Neuro Narrative: Reported left facial, arm and leg numbness and tingling. Good strength in left arm and leg, no left-sided facial droop noted. Sensorium / Orientation: awake and alert Speech: speech normal Psych mental status grossly normal Weight / BMI Weight Weight: 95.4 kg Body Mass Index (BMI) 32.9 ABG / Lab / Microbiology Data 09/30/23 06:26 09/30/23 06:26 Laboratory: Laboratory Results - last 24 hr 09/29/23 12:25: WBC 8.3, RBC 4.71, Hgb 13.3, Hct 42.0, MCV 89.2, MCH 28.2, MCHC 31.7 L, RDW Std Deviation 41.6, RDW Coeff of Andrew 12.8, Plt Count 249, MPV 9.5, Immature Gran % (Auto) 0.400, Neut % (Auto) 71.2 H, Lymph % (Auto) 21.9, [place] % (Auto) 6.1, Eos % (Auto) 0.0, Baso % (Auto) 0.4, Absolute Neuts (auto) 5.9, Absolute Lymphs (auto) 1.82, Nucleated RBC % 0, Sodium 141, Potassium 4.2, Chloride 107, Carbon Dioxide 28.0, Anion Gap 6, BUN 12, Creatinine 0.83, Estim Creat Clear Calc 85.69, Est GFR (MDRD) Af Amer 89, Est GFR (MDRD) Non-Af 73, BUN/Creatinine Ratio 14.4, Glucose 134 H, Calcium 9.0, Troponin I High Sens 4 09/29/23 13:25: POC Glucose 146 H 09/29/23 22:03: POC Glucose 98 09/30/23 06:26: WBC 8.9, RBC 4.32, Hgb 12.2, Hct 38.9, MCV 90.0, MCH 28.2, MCHC 31.4 L, RDW Std Deviation 42.3, RDW Coeff of Andrew 12.8, Plt Count 212, MPV 9.5, Immature Gran % (Auto) 0.600, Neut % (Auto) 67.7, Lymph % (Auto) 24.7, [place] % (Auto) 6.1, Eos % (Auto) 0.2, Baso % (Auto) 0.7, Absolute Neuts (auto) 6.0, Absolute Lymphs (auto) 2.19, Nucleated RBC % 0, Sodium 142, Potassium 3.6, Chloride 111 H, Carbon Dioxide 24.0, Anion Gap 7, BUN 12, Creatinine 0.70, Estim Creat Clear Calc 97.55, Est GFR (MDRD) Af Amer 108, Est GFR (MDRD) Non-Af 89, BUN/Creatinine Ratio 17.0, Glucose 127 H, Calcium 8.5, Triglycerides 191, Cholesterol 207 H, LDL Cholesterol 125, VLDL Cholesterol 38, HDL Cholesterol 44 09/30/23 06:40: POC Glucose 116 H Radiography Diagnostic Testing: Radiology Impression Brain CT 09/29/23 12:48 IMPRESSION: Normal unenhanced CT scan of the brain. Electronically Signed: Jaden Steele MD at 13:58 EDT , Brain MRI 09/29/23 15:07 IMPRESSION: Involutional changes of the brain, as described above. No acute infarct. Electronically Signed: Alex Maldonado MD at 19:53 EDT Reading Location ID and State: [id number] / [email or web address] Tel , Service support , Neck MRA 09/29/23 15:07 IMPRESSION: Normal bilateral cervical carotid and vertebral arteries. Electronically Signed: Alex Maldonado MD at 19:54 EDT , Head MRA 09/29/23 15:31 IMPRESSION: Normal MRA of the head Electronically Signed: Alex Maldonado MD at 19:54 EDT , Meaningful Use Info Meaningful Use Diagnoses (Choose all that apply): None applicable Discharge Plan Admission Admit Date/Time: 09/29/23 16:34 Primary Reason for Your Visit: Left-sided weakness with numbness and tingling Attending Provider: Rivera Heller Primary Care Provider: Juwan Hernandez Chi Consulting Providers: Renny Patel; Pia Bojorquez; Fiona Harmon; Kailee Qiu; Michelle Hubbard; Baljeet Durham; Marion Orantes; Leobardo Benito; Valentín Quick; Juliet Salomon; Jake Ly; Kat Arambula; Ole Vergara; Jordy Estrella; Tim Pascual; Vic Guillen; Onofre Drummond; Elise Deras; Ridge Martinez; Douglas Oliva Discharge Orders/Prescriptions Prescriptions: Continued atorvastatin 10 mg tablet 10 mg PO DAILY levothyroxine 100 mcg tablet 100 mcg PO DAILY Trulicity 1.5 mg/0.5 mL pen injector 1.5 mg subcut FR cholecalciferol (vitamin D3) [Vitamin D3] 1,000 UNIT tablet 1,000 unit PO DAILY Ocuvite Eye Plus Multi 1 EACH tablet 1 ea PO DAILY duloxetine 60 MG capsule,delayed release(DR/EC) 1 capsule PO DAILY acetaminophen 500 MG tablet 500 mg PO Q6H PRN (Reason: Pain) topiramate 100 MG tablet 100 mg PO BID melatonin 10 MG tablet 10 mg PO QHS PRN (Reason: Insomnia) levetiracetam 500 mg tablet 500 mg PO BID pantoprazole 40 mg tablet,delayed release (DR/EC) 40 mg PO DAILY coenzyme Q10 [Co Q-10] 100 mg capsule 100 mg PO DAILY magnesium oxide 400 mg magnesium tablet 400 mg PO DAILY polyethylene glycol 3350 [Miralax] 17 gram/dose powder 17 g PO DAILY PRN (Reason: constipation) Referrals / Follow Up: Juwan Hernandez Chi, MD [Primary Care Provider] - 10/01/23 2:20 pm Disposition Disposition (needs filled in before D/C Order can be placed): Home Health Service Charges/Coding Visit Charges Inpatient E&M: 57552 Disch Hosp >30min
[2023-09-30 11:39] LABS: Bedside Glucose 137 mg/dL (74-106)
--- NOTE | 2023-09-30 12:32 | PHA.DC.MR.R ---
Pharmacy CT Med Reconciliation Pharmacy Service has performed discharge medication reconciliation for this patient. The patient's discharge medication list was reviewed for discrepancies and discrepancies were resolved. Medications at Discharge Home Medications cholecalciferol (vitamin D3) 25 mcg (1,000 unit) tablet (Vitamin D3) 1,000 unit PO DAILY SUPPLEMENT 03/13/16 [id number] 200 mcg-vit K 15 mcg-lycope 150 [id number]-[id number] tablet (Ocuvite Eye Plus Multi) 1 ea PO DAILY SUPPLEMENT 03/13/16 duloxetine 60 mg capsule,delayed release 1 capsule PO DAILY FIBROMYALGIA 10/24/16 acetaminophen 500 mg tablet 500 mg PO Q6H PRN Pain 02/14/17 melatonin 10 mg tablet 10 mg PO QHS PRN Insomnia 02/14/17 topiramate 100 mg tablet 100 mg PO BID SEIZURES 02/14/17 levetiracetam 500 mg tablet 500 mg PO BID SEIZURES 07/28/22 pantoprazole 40 mg tablet,delayed release 40 mg PO DAILY GERD 07/28/22 coenzyme Q10 100 mg capsule (Co Q-10) 100 mg PO DAILY LIVER 01/05/23 atorvastatin 10 mg tablet 10 mg PO DAILY 09/18/23 dulaglutide 1.5 mg/0.5 mL subcutaneous pen injector (Trulicity) 1.5 mg subcut FR 09/18/23 levothyroxine 100 mcg tablet 100 mcg PO DAILY 09/18/23 magnesium oxide 400 mg PO DAILY 09/29/23 polyethylene glycol 3350 17 gram/dose oral powder (Miralax) 17 g PO DAILY PRN constipation 09/29/23
--- NOTE | 2023-09-30 14:44 | CASEMGMT ---
Addendum entered by Rohit Lopez 09/30/23 15:13: Pt states she has a CPAP but does not wear it. Original Note: RN?CM?MANAGER PARTY?CM?to room to meet with patient for initial transition planning/care coordination?assessment.?RN?CM?introduced self and role at [facility].? Pt voices understanding and consents to?assessment?at this time.? Pt resting in bed in no distress at this time.? @ bedside. Pt is A/O at this time and answers all questions appropriately.?? Care providers, pharmacy, and demographics verified/updated at this time. PCP: Dr Hernandez. Appt scheduled w/him for tomorrow @ 2:20 PM, as pt would like C and Dr Hernandez requires appt w/pt before he will follow for HHC. Pt and made aware and this was added to d/c plan. Specialists: Dr Harrell- neurology Preferred Pharmacy: [facility] Retail Insurance: [email or web address] Prescription Benefit:?Yes Living Will/HPOA:?Has both LW and HCPOA, who is her , Bear. LNOK: , Bear. Nichelle GABRIEL Living Arrangements: Lives w/her , son, NERY, and grandson in raised-ranch home w/10 steps to enter w/rail. There is another entrance where there's only 3 steps to go up and her could drive through the yard to take her to those steps, if needed. Pt independent w/ADL's @ her baseline and pt and share home mgnt tasks. and other family members able to assist as needed. Financial stressors: Pt and voiced concerns w/finances and hospital bills. Pt states she has not qualified for [facility] in the past, stating b/w disability and social security, their income is too high. Pt provided w/Job and Family contact info and [employer] info. Pt declines wanting info on [facility] [employer] and declines needing further resources at this time. Transportation:?Pt states drives self, but states she only drives a little and states no transportation concerns at this time.? also drives. DME: States has the following DME:? bath chair, cane, functioning glucometer w/supplies. Pt and state no need for further DME at this time.? HHC/SNF: No hx of either. Pt interested in ongoing therapy. Discussed HHC and OP therapy. Questions answered. Pt and aware of homebound criteria for HHC. Pt does have some difficulty w/ambulating uses furniture/bright or cane for balance when walking. Pt would like [facility] and declines wanting list of HHC options unless [facility] unable to accept her. Order placed. Call to Cori @ [facility] and referral made. She was made aware pt has appt w/Dr Hernandez tomorrow. She states they are able to accept pt w/SOC slated for Thursday. Pt and made aware. Pt wishes to return home and states has no further concerns with going home. PLAN:??Home w/spousal support and [facility] for therapy. Freddy BSN?RN?CM
[2023-09-30 14:49] VITALS: O2SAT 96
== END 2023-09-30 15:59 | disposition home health service (06) | DRG 948 ==
LOC: ED 14:10 → PCU 15:01
PROVIDERS: Emergency Provider Emergency Medicine; PCP Family Medicine Geriatric Medicine; Visit Provider Hospitalist
DX: R53.1 Weakness (principal); E03.9 Hypothyroidism, unspecified; E11.9 Type 2 diabetes mellitus without complications; G40.909 Epilepsy, unspecified, not intractable, without status epilepticus; G35 Multiple sclerosis; E78.00 Pure hypercholesterolemia, unspecified; G47.30 Sleep apnea, unspecified; E66.9 Obesity, unspecified; R29.810 Facial weakness; R20.2 Paresthesia of skin; Z79.899 Other long term (current) drug therapy; Z68.35 Body mass index [BMI] 35.0-35.9, adult
CPT/HCPCS: 36415; 70450; 70544; 70547; 70551; 80048; 80061; 82962; 84484; 85025; 93005; 93306; 94762; 97162; 97166; 99285; J7030

== ENCOUNTER → 2023-12-09 | Outpatient (CLI) | payer MEDICARE, SELFPAY ==
[2023-12-09 15:22] LABS: Absolute Lymphocyte Count 2.51 X10^3/uL (0.83-4.51); Absolute Neutrophil Count 7.6 X10^3/uL (2.0-7.7); Basophil# 0.04 X10^3/uL; Basophil% 0.4 % (0-1); Eosinophil# 0.01 X10^3/uL; Eosinophils% 0.1 % (0-5); Hematocrit 44.4 % (37-47); Hemoglobin 13.7 g/dL (12.0-15.0); Lymphocyte # 2.51 X10^3/ul (0.83-4.51); Mean Corp Hgb Conc 30.9 g/dL (32-36); Mean Corpuscular Hgb 27.6 pg (27.0-32.0); Mean Corpuscular Volume 89.5 fL (81-99); Mean Platelet Vol. 9.3 fl (6.2-12.0); Monocyte# 0.69 X10^3/uL; Monocyte% 6.3 % (0-10); NRBC Flagged by Analyzer 0 % (0-5); Neutrophil # 7.61 X10^3/uL (2.7-7.7); Neutrophil % 69.7 % (47-70); Platelet Count 238 K/mm3 (150-450); RBC Distribution Width CV 13.2 % (11.6-14.6); RBC Distribution Width SD 42.9 fl (35.1-43.9); Red Blood Count 4.96 M/mm3 (4.2-5.4); White Blood Count 10.9 K/mm3 (4.4-11.0)
[2023-12-09 15:51] LABS: Vitamin D,25 Hydroxy 33.2 ng/mL
[2023-12-09 16:23] LABS: ALB/GLOB Ratio 0.9 RATIO (0.9-2.4); AST(SGOT) 13 U/L (15-37); Alanine Aminotransfer ALT/SGPT 16 U/L (13-56); Albumin, Serum 3.7 g/dL (3.2-5.0); Alkaline Phosphatase 104 U/L (45-117); Anion Gap 5 (5-15); BUN 13 mg/dL (7-18); BUN/Creat Ratio 13.1 RATIO (10-20); Calcium,Total 9.3 mg/dL (8.5-10.1); Chloride 105 mmol/L (98-107); Cholesterol 250 mg/dL (200); Creatinine, Serum 0.99 mg/dL (0.55-1.02); EST Glomerular Filtration Rate 60 mL/min (>60); Est Glom Filt Rate - Afr Amer 73 mL/min (>60); Glucose 114 mg/dL (74-106); High Density Lipoprotein 55 mg/dL; Potassium 3.5 mmol/L (3.5-5.1); Protein, Total 7.7 g/dL (6.4-8.2); Sodium Level 138 mmol/L (136-145); Thyroid Stim Hormone (TSH) 4.46 uIU/mL (0.358-3.74); Triglycerides 252 mg/dL; Very Low Density Lipoprotein 50 mg/dL (5-40)
[2023-12-09 17:31] LABS: Hemoglobin A1c 6.5 % (3.8-5.6)
[2023-12-11 19:36] LABS: Microalbumin,Random Urine 29.7 mg/L (NO RANGE EST.)
== END | disposition home or self-care (01) ==
LOC: LAB 14:22
PROVIDERS: PCP Family Medicine Geriatric Medicine; Visit Provider Family Medicine Geriatric Medicine
DX: R53.83 Other fatigue (principal); E11.65 Type 2 diabetes mellitus with hyperglycemia; E55.9 Vitamin D deficiency, unspecified; E78.5 Hyperlipidemia, unspecified
CPT/HCPCS: 36415; 80053; 80061; 82043; 82306; 83036; 84443; 85025

== ENCOUNTER → 2024-06-13 | Outpatient (CLI) | payer MEDICARE, SELFPAY ==
[2024-06-13 13:30] LABS: Absolute Lymphocyte Count 2.08 X10^3/uL (0.83-4.51); Absolute Neutrophil Count 5.8 X10^3/uL (2.0-7.7); Basophil# 0.05 X10^3/uL; Basophil% 0.6 % (0-1); Eosinophil# 0.01 X10^3/uL; Eosinophils% 0.1 % (0-5); Hematocrit 40.2 % (37-47); Hemoglobin 12.5 g/dL (12.0-15.0); Lymphocyte # 2.08 X10^3/ul (0.83-4.51); Lymphocyte % 24.4 % (19-41); Mean Corp Hgb Conc 31.1 g/dL (32-36); Mean Corpuscular Hgb 27.3 pg (27.0-32.0); Mean Corpuscular Volume 87.8 fL (81-99); Mean Platelet Vol. 9.4 fl (6.2-12.0); Monocyte# 0.52 X10^3/uL; Monocyte% 6.1 % (0-10); NRBC Flagged by Analyzer 0 % (0-5); Neutrophil # 5.81 X10^3/uL (2.7-7.7); Neutrophil % 68.3 % (47-70); Platelet Count 217 K/mm3 (150-450); RBC Distribution Width CV 13.2 % (11.6-14.6); RBC Distribution Width SD 41.5 fl (35.1-43.9); Red Blood Count 4.58 M/mm3 (4.2-5.4); White Blood Count 8.5 K/mm3 (4.4-11.0)
[2024-06-13 14:08] LABS: Mucous, Urine 0 SEEN /hpf (<or=2+); Red Blood Cells-Urine 0 SEEN /hpf (0-5)
[2024-06-13 14:15] LABS: Hemoglobin A1c 8.4 % (3.8-5.6)
[2024-06-13 15:18] LABS: Color, Urine Yellow (Yellow); Glucose, Dipstick 250 mg/dl (Normal); Ketone-Dipstick Negative (Negative); Leukocyte Esterase-Dipstick 100 /ul (Negative); Nitrite-Dipstick Negative (Negative); Occult Blood-Urine Negative /ul (Negative); Protein-Dipstick Negative (Negative); Specific Gravity, Urine 1.005 (1.002-1.030); Urine Bilirubin Dipstick Negative (Negative); Urine Clarity Clear (Clear); Urine Urobilinogen Normal (Normal); Urine pH 6.5 (5.0 - 8.0)
[2024-06-13 15:32] LABS: Bacteria RARE /hpf (None Seen); Squamous Epithelial Cells - UA 5-10 SEEN /hpf (5-10); Transitional Epithelial - Ur 0-5 SEEN /hpf (0-5); White Blood Cells 5-10 SEEN /hpf (0-5)
[2024-06-13 15:37] LABS: Microalbumin,Random Urine 9.6 mg/L (NO RANGE EST.)
[2024-06-13 15:57] LABS: AST(SGOT) 12 U/L (15-37); Alanine Aminotransfer ALT/SGPT 16 U/L (13-56); Albumin, Serum 3.5 g/dL (3.2-5.0); Alkaline Phosphatase 120 U/L (45-117); Anion Gap 7 (5-15); BUN 15 mg/dL (7-18); BUN/Creat Ratio 15.5 RATIO (10-20); CPK Total, Creatine Kinase 108 U/L (26-192); Chloride 103 mmol/L (98-107); Cholesterol 277 mg/dL (200); Creatinine, Serum 0.96 mg/dL (0.55-1.02); EST Glomerular Filtration Rate 62 mL/min (>60); Est Glom Filt Rate - Afr Amer 75 mL/min (>60); Globulin 3.6 g/dL (2.2-4.2); Glucose 256 mg/dL (74-106); High Density Lipoprotein 53 mg/dL; Potassium 3.6 mmol/L (3.5-5.1); Protein, Total 7.1 g/dL (6.4-8.2); Sodium Level 139 mmol/L (136-145); Triglycerides 247 mg/dL; Troponin-I HS < 3 pg/mL (3.0-54.0); Very Low Density Lipoprotein 49 mg/dL (5-40)
[2024-06-15 04:07] LABS: Myoglobin, Serum 42 ng/mL (25-58)
== END | disposition home or self-care (01) ==
LOC: POLAB3 13:12
PROVIDERS: PCP Family Medicine Geriatric Medicine; Visit Provider Family Medicine Geriatric Medicine
DX: R07.9 Chest pain, unspecified (principal); E11.65 Type 2 diabetes mellitus with hyperglycemia; R30.0 Dysuria; N39.0 Urinary tract infection, site not specified; R53.83 Other fatigue; E78.5 Hyperlipidemia, unspecified
CPT/HCPCS: 36415; 80053; 80061; 81001; 82043; 82550; 82570; 83036; 83874; 84443; 84484; 85025; 87086; 87088

== ENCOUNTER 2024-06-21 14:15 | Outpatient (CLI) | payer MEDICARE, SELFPAY | END 2024-06-21 23:59 | disposition home or self-care (01) | LOC: OPBI 14:17 | PROVIDERS: PCP Family Medicine Geriatric Medicine; Referring Provider Family Medicine Geriatric Medicine; Visit Provider Family Medicine Geriatric Medicine | DX: N63.20 Unspecified lump in the left breast, unspecified quadrant (principal); R92.8 Other abnormal and inconclusive findings on diagnostic imaging of breast; R07.9 Chest pain, unspecified | CPT/HCPCS: 76642; 77062; 77066; G0279 ==

== ENCOUNTER → 2024-06-21 | Outpatient (CLI) | payer MEDICARE, SELFPAY ==
--- NOTE | 2024-06-21 13:51 | EKG12_ITS ---
Test Reason : CP Blood Pressure : */* mmHG Vent. Rate : 84 BPM Atrial Rate : 84 BPM P-R Int : 148 ms QRS Dur : 86 ms QT Int : 428 ms P-R-T Axes : 59 95 29 degrees QTcB Int : 505 ms Normal sinus rhythm Rightward axis Low voltage QRS Nonspecific T wave abnormality Prolonged QT Abnormal ECG Confirmed by LANDY MOULTON, MOMO ([id number]), loan expeditor BOOGIE SANTIAGO ([id number]) on 06/22/2024 1:18:21 PM Referred By: Juwan Hernandez Confirmed By: MOMO BILL MD
--- NOTE | 2024-06-21 14:19 | US_ITS ---
STUDY: ULTRASOUND BREAST - LEFT REASON FOR EXAM: Female, 64 years old. Tender palpable lump in the left breast. TECHNIQUE: Axial and longitudinal images of the LEFT breast were performed with a high resolution ultrasound transducer. # OF IMAGES: 31 COMPARISON: Comparison is made with prior mammogram done earlier today. FINDINGS: LEFT Breast: The 6:00 position of the breast was examined with ultrasound. No sonographic abnormality is seen. At the 11:00 position breast at 5 cm from nipple. Incidental note is made of a 7 mm x 7 mm x 6 mm cyst. US/Breast Limited Unilateral IMPRESSION: 7 mm x 7 mm x 6 mm cyst is seen at the 11:00 position breast 5 cm from the nipple. ASSESSMENT CATEGORY: BIRADS Category 2: Benign. A letter regarding these results will be sent to the patient by the facility within 30 days. Electronically Signed: Jaden Steele MD at 8:17 EST ,
--- NOTE | 2024-06-21 14:19 | BI_ITS ---
MAMMOGRAPHY - BILATERAL DIAGNOSTIC REASON FOR EXAM: Female, 64 years old. Palpable lump at 7:00 position of the left breast. PERTINENT HISTORY: Prior left excisional breast biopsy. Left breast discharge. TECHNIQUE: Digital bilateral breast fabby (3D mammographic acquisition) in the CC and MLO projections. 2-D mediolateral oblique (MLO) and craniocaudad (CC) views of both breasts were obtained. CAD: Full Field Digital Mammography with Computer Added Detection was performed. COMPARISON: Comparison is made with prior study April 21, 2023 and February 03, 2022. FINDINGS: Breast Composition: There are scattered areas of fibroglandular density. There are no dominant masses or suspicious calcifications. The patient is status post lumpectomy in the upper lateral aspect of the left breast with resultant postoperative deformity. A tissue clip marker is seen in the deep upper slightly medial aspect of the left breast as well as in the upper lateral aspect of the left breast. No other significant abnormalities are identified. There has been no significant change since the prior study. BI/DIAG MAMM W/CAD, BILAT IMPRESSION: Stable bilateral diagnostic mammogram. With the patient''s history of a left breast lump and nipple discharge, targeted sonographic correlation recommended. ASSESSMENT CATEGORY: BIRADS Category 0: Incomplete. Need additional imaging evaluation. A letter regarding these results will be sent to the patient by the facility within 30 days. Approximately 10% of breast cancers are not detected by mammography. A normal mammogram should not delay biopsy of a clinically suspicious abnormality. Electronically Signed: Jaden Steele MD at 15:32 EST ,
== END | disposition home or self-care (01) ==
PROVIDERS: PCP Family Medicine Geriatric Medicine; Referring Provider Family Medicine Geriatric Medicine; Visit Provider Family Medicine Geriatric Medicine
DX: R92.8 Other abnormal and inconclusive findings on diagnostic imaging of breast (principal); R07.9 Chest pain, unspecified
CPT/HCPCS: 76642; 77066; 93005

== ENCOUNTER → 2024-07-18 | Outpatient (CLI) | payer MEDICARE, SELFPAY ==
--- NOTE | 2024-07-18 10:09 | STRESSREP ---
Stress Test Report Pharmacologic myocardial perfusion stress test. 64-year-old lady with a history of chest pain Resting EKG demonstrates sinus rhythm with a rate of 75 bpm. Resting blood pressure is 112/70 mmHg. 0.4 mg of regadenoson was infused per usual protocol followed by rapid intravenous saline flush injection. Continuous EKG monitoring was performed. The maximum heart rate was 85 bpm which was 54 beats of max impacted heart rate the maximum workload was 1 metabolic equivalent. At rest there were no ST or T wave changes noted to suggest ischemia and at peak infusion nonspecific ST changes were noted which did not meet the criteria for ischemia. No clinical angina is noted. The final blood pressure was 126/70 mmHg. Myocardial perfusion protocol. 14 mCi of technetium 99m sestamibi was injected at rest. 0.4 mg of regadenoson was infused per usual protocol. At peak infusion 45 mCi of technetium 99m sestamibi was injected stress images were obtained stress and rest images were reconstructed and compared in the short axis vertical long and horizontal long axis. Gated images were also obtained. Perfusion SPECT analysis: Review of the stress images demonstrate normal uptake of tracer noted in all areas of the myocardium. The resting images similar demonstrated normal uptake of tracer noted in all areas of the myocardium. No areas of reversibility are noted to suggest ischemia and no previous infarct is noted. Gated SPECT analysis: The gated ejection fraction is 67%. Conclusion: Normal pharmacologic myocardial perfusion stress test. Preserved ejection fraction.
== END | disposition home or self-care (01) ==
LOC: CVS 07:04
PROVIDERS: PCP Family Medicine Geriatric Medicine; Referring Provider Family Medicine Geriatric Medicine; Visit Provider Family Medicine Geriatric Medicine
DX: R07.9 Chest pain, unspecified (principal)
CPT/HCPCS: 78452; 93017; A9500; A4216; J2785

== ENCOUNTER → 2024-08-10 | Outpatient (CLI) | payer MEDICARE, SELFPAY ==
[2024-08-10 15:04] LABS: Hemoglobin A1c 6.8 % (3.8-5.6)
[2024-08-10 15:06] LABS: Thyroid Stim Hormone (TSH) 0.271 uIU/mL (0.358-3.740)
== END | disposition home or self-care (01) ==
LOC: POLAB3 14:04
PROVIDERS: PCP Family Medicine Geriatric Medicine; Visit Provider Family Medicine Geriatric Medicine
DX: E03.9 Hypothyroidism, unspecified (principal); E11.65 Type 2 diabetes mellitus with hyperglycemia
CPT/HCPCS: 36415; 83036; 84443

== ENCOUNTER → 2024-08-29 | Outpatient (CLI) | payer MEDICARE, SELFPAY ==
--- NOTE | 2024-08-29 16:15 | RAD_ITS ---
PROCEDURE: Lumbar spine radiographs, four views REASON FOR EXAM: Back pain. Left sciatica TECHNIQUE: Four views of the lumbar spine were obtained. COMPARISON: None. FINDINGS: Four views of the lumbar spine were obtained. Bones are osteopenic. Included portions of the pelvis and SI joints are intact. Right upper quadrant surgical clips are present. Mild multilevel degenerative disc and facet disease in the lumbar spine. No acute fracture or focal subluxation in the lumbar spine is demonstrated. RAD/L/S Spine Min 4 Views IMPRESSION: Osteopenia. No acute bony abnormality of the lumbar spine. Mild multilevel degenerative disc and facet disease in the lumbar spine. If th ere is persistent pain or clinical concern, short-term follow-up MRI evaluation may be considered. Reading Location: [facility]
--- NOTE | 2024-08-29 16:15 | RAD_ITS ---
PROCEDURE: Pelvis and left hip radiographs, three views REASON FOR EXAM: Left sciatica TECHNIQUE: Three views of the pelvis and left hip were obtained. COMPARISON: None. FINDINGS: Three views of the pelvis and left hip were obtained. The bones are osteopenic. Degenerative changes lower lumbar spine. Multiple pelvic phleboliths. A few surgical clips project over the central pelvis. No displaced pelvic or proximal femur fracture. Mild degenerative changes in the hip joints. No acute fracture or dislocation of the left hip. RAD/HIP, UNI W/ Pelvis 2-3 Views IMPRESSION: Osteopenia. No acute bony abnormality of the pelvis/left hip. Mild degenerative changes in the hip joints. Reading Location: [facility]
== END | disposition home or self-care (01) ==
PROVIDERS: PCP Family Medicine Geriatric Medicine; Visit Provider Family Medicine Geriatric Medicine
DX: M54.50 Low back pain, unspecified (principal); M54.32 Sciatica, left side; R68.83 Chills (without fever)
CPT/HCPCS: 72110; 73502; 87631

== ENCOUNTER → 2024-09-21 | Outpatient (CLI) | payer MEDICARE, SELFPAY ==
[2024-09-21 15:30] LABS: Hemoglobin A1c 7.3 % (<=5.6)
== END | disposition home or self-care (01) ==
LOC: POLAB3 13:30
PROVIDERS: PCP Family Medicine Geriatric Medicine; Visit Provider Family Medicine Geriatric Medicine
DX: E11.65 Type 2 diabetes mellitus with hyperglycemia (principal); E03.9 Hypothyroidism, unspecified
CPT/HCPCS: 36415; 83036; 84443

== ENCOUNTER → 2024-12-12 | Outpatient (CLI) | payer MEDICARE, SELFPAY ==
[2024-12-12 14:47] LABS: Absolute Lymphocyte Count 2.77 X10^3/uL (0.83-4.51); Absolute Neutrophil Count 4.3 X10^3/uL (2.0-7.7); Basophil# 0.05 X10^3/uL; Basophil% 0.6 % (0-1); Eosinophil# 0.15 X10^3/uL; Eosinophils% 1.9 % (0-5); Hemoglobin 13.3 g/dL (12.0-15.0); Lymphocyte # 2.77 X10^3/ul (0.83-4.51); Lymphocyte % 35.3 % (19-41); Mean Corp Hgb Conc 31.7 g/dL (32-36); Mean Corpuscular Hgb 27.5 pg (27.0-32.0); Mean Corpuscular Volume 86.8 fL (81-99); Mean Platelet Vol. 9.5 fl (6.2-12.0); Monocyte# 0.57 X10^3/uL; Monocyte% 7.3 % (0-10); NRBC Flagged by Analyzer 0 % (0-5); Neutrophil # 4.26 X10^3/uL (2.7-7.7); Neutrophil % 54.3 % (47-70); Platelet Count 210 K/mm3 (150-450); RBC Distribution Width CV 13.3 % (11.6-14.6); RBC Distribution Width SD 41.5 fl (35.1-43.9); Red Blood Count 4.84 M/mm3 (4.2-5.4); White Blood Count 7.9 K/mm3 (4.4-11.0)
[2024-12-12 15:22] LABS: ALB/GLOB Ratio 1.4 RATIO (0.9-2.4); AST(SGOT) 16 U/L (<=31); Alanine Aminotransfer ALT/SGPT 11 U/L (<=34); Albumin, Serum 4.2 g/dL (3.4-4.8); Alkaline Phosphatase 95 U/L (35-104); Anion Gap 10 (5-15); BUN 16 mg/dL (4-19); Calcium,Total 9.5 mg/dL (7.6-11.0); Carbon Dioxide 27.3 mmol/L (21.0-32.0); Chloride 104 mmol/L (98-108); Cholesterol 280 mg/dL (<=200); Creatinine, Serum 0.94 mg/dL (0.70-1.20); EST Glomerular Filtration Rate 68 (>60); Glucose 121 mg/dL (70-99); High Density Lipoprotein 48 mg/dL; Low Density Lipoprotein Calc. 191 mg/dL; Potassium 4.2 mmol/L (3.3-5.1); Protein, Total 7.2 g/dL (5.9-8.4); Sodium Level 142 mmol/L (133-145); Total Bilirubin 0.32 mg/dL (0.00-1.30); Triglycerides 205 mg/dL; Very Low Density Lipoprotein 41 mg/dL (5-40); cholesterol:hdl ratio screen 5.88
[2024-12-12 16:08] LABS: Hemoglobin A1c 7.2 % (<=5.6)
[2024-12-12 16:11] LABS: Microalbumin,Random Urine 15.1 mg/L (NO RANGE EST.); Microalbumin:Creatinine Ratio 96.8 mg/g CRE
== END | disposition home or self-care (01) ==
LOC: LAB 14:00
PROVIDERS: PCP Family Medicine Geriatric Medicine; Referring Provider Family Medicine Geriatric Medicine; Visit Provider Family Medicine Geriatric Medicine
DX: E11.65 Type 2 diabetes mellitus with hyperglycemia (principal); R53.83 Other fatigue; E78.5 Hyperlipidemia, unspecified
CPT/HCPCS: 36415; 80053; 80061; 82043; 82570; 83036; 84443; 85025